=== PATIENT | male | born 1945 | race Caucasian/White ===

== ENCOUNTER 2019-08-06 10:28 | Outpatient (CLI) | payer MEDICARE, SELFPAY ==
--- NOTE | 2019-08-06 11:08 | US_ITS ---
WS: [id number] Complete ABDOMINAL ULTRASOUND HISTORY: ABDOMINAL PAIN COMPARISON: None available. Liver: 19.2 cm in length. Enlarged heterogeneous liver. The entire liver is poorly visualized. No mas s or bile duct dilatation. Gallbladder: Normally distended with no gallstones, wall thickening or pericholecystic fluid. Gallbladder wall thickness: 0.2 cm. Pancreas: Normal size and echogenicity. CBD: 0.7 cm. Right kidney: 10.9 cm x 4.8 cm x 6.0 cm. No mass, cortical thickening or hydronephrosis. Left kidney: 12.2 cm x 6.3 cm x 6.9 cm. No mass, cortical thickening or hydronephrosis. Spleen: Normal size and echogenicity. Abdominal aorta and IVC are within normal limits. No ascites. US/US abdomen complete* [id number] IMPRESSION: 1. Normal gallbladder. 2. Moderate hepatomegaly and hepatic steatosis.
== END 2019-08-06 10:29 | disposition home or self-care (01) ==
LOC: RAD 10:32
PROVIDERS: Family Provider Family Medicine; PCP Nurse Practitioner Family; Visit Provider Nurse Practitioner Family
DX: R10.9 Unspecified abdominal pain (principal); R16.0 Hepatomegaly, not elsewhere classified; K76.0 Fatty (change of) liver, not elsewhere classified
CPT/HCPCS: 76700

== ENCOUNTER → 2019-11-07 09:03 | Outpatient (BNVA) | payer MEDICARE, SELFPAY | PROVIDERS: Family Provider Family Medicine; PCP Nurse Practitioner Family; Visit Provider Internal Medicine | DX: Z11.59 Encounter for screening for other viral diseases (principal) | CPT/HCPCS: 87635 ==

== ENCOUNTER 2019-11-11 08:59 | Day surgery (SDC) | payer MEDICARE, SELFPAY ==
[2019-11-11 09:53] VITALS: BMI 28.8
--- NOTE | 2019-11-11 09:56 | W.PM.OPSUD ---
Surgery/Procedure H&P Update DATE OF PROCEDURE: November 11, 2019 DATE H&P PERFORMED: 10/31/19 H&P UPDATE INFORMATION: I have reviewed H&P completed within last 30 days, I have examined patient prior to procedure and No changes to prior documentation PLANNED PROCEDURE: Operation Date: 11/11/19 10:35 Proposed Procedures p Colonoscopy 15687 R15.2(Not Applicable) - Mckay Simmons MD
[2019-11-11] MEDS: sodium chloride 0.9% 1,000 ML 30 ML IV (10:20)
--- NOTE | 2019-11-11 10:56 | ANES.PREANE2 ---
Pre-Anesthetic Assessment Pre-Anesthetic Assessment: Height/Weight: Height 1.83 m Weight 96.615 kg Preop Diagnosis: urgency Proposed Procedure: Operation Date: 11/11/19 10:35 Proposed Procedures p Colonoscopy 43808 R15.2(Not Applicable) - Mckay Simmons MD Familial anesthetic complications: none Was Beta Apolinar taken within 24 hours: Yes Last intake: Intake Last Liquid Date 11/10/19 Last Liquid Time 21:00 Last Solid Date 11/09/19 Social: Social History: No alcohol and No tobacco Comment: former smoker Exam: Pre-Anes Outpt Exam: alert, oriented x 3, clear to auscultation bilaterally and regular rate & rhythm Airway: Cervical ROM: WNL MP: 4 Dentition: Other (misisng) Pulmonary: Pulmonary: COPD CV/HEM: CV/HEM: CAD (stents 2010) and HTN Comments: hx cabg GI: GI: GERD Metabolic: Metabolic: DM Neuropsych: Comments: hx yung fever Anesthetic Plan: ASA status: 3 Anesthesia: MAC Meds/Allergies Current Medications: Current Medications Generic Name Dose Route Start Last Admin Trade Name Freq PRN Reason Stop Dose Admin Sodium Chloride 1,000 mls @ 30 ml s/hr 11/11/19 10:00 11/11/19 10:20 Sodium Chloride 0.9% IV 30 mls/hr .Q24H ASHANTI Administration PFSH Anesthesia PFSH: Medical History COPD (chronic obstructive pulmonary disease) Coronary artery disease GERD (gastroesophageal reflux disease) History of scarlet fever Hyperlipidemia associated with type 2 diabetes mellitus Surgical History S/P CABG (coronary artery bypass graft) S/P CABG x 3 S/P knee replacement Left S/P PTCA (percutaneous transluminal coronary angioplasty) 2010 X2 S/P wrist surgery Left Status post right inguinal hernia repair Family History Sister Cancer breast Mother Hypercholesterolemia Myocardial infarction Father Myocardial infarction Diabetes Denies family history of Anesthesia complication Bleeding disorder Social History Smoking and tobacco status: former smoker Alcohol intake: never Household members: spouse Marital status: Current occupational status: retired History of recent travel: No Data Anesthesia Cardiac Studies: No Data to Display
--- NOTE | 2019-11-11 11:57 | SUR.OPER ---
4mL ink placed at transverse colon mass site
--- NOTE | 2019-11-11 12:13 | ANE.PACU2 ---
Inpatient post-anesthesia follow up: Airway intact: Yes Vital signs: Temperature Pulse Rate Respiratory Rate Blood Pressure Pulse Oximetry Oxygen Delivery Me thod Room Air Oxygen Flow Rate Fraction of Inspir ed Oxygen Hydration adequate: Yes Nausea and vomiting: No Pain level: 1 Mental status: Baseline
== END 2019-11-11 12:36 | disposition home or self-care (01) ==
PROVIDERS: Family Provider Family Medicine; PCP Nurse Practitioner Family; Visit Provider Surgery
PROC: 0DJD8ZZ Inspection of Lower Intestinal Tract, Via Natural or Artificial Opening Endoscopic (ICD-10-PCS; CPT 45378; principal; 2019-11-11 10:30)
DX: R15.2 Fecal urgency (principal); D12.2 Benign neoplasm of ascending colon; D12.4 Benign neoplasm of descending colon; K63.5 Polyp of colon; K57.30 Diverticulosis of large intestine without perforation or abscess without bleeding; J44.9 Chronic obstructive pulmonary disease, unspecified; I25.10 Atherosclerotic heart disease of native coronary artery without angina pectoris; I10 Essential (primary) hypertension; E11.9 Type 2 diabetes mellitus without complications; E78.5 Hyperlipidemia, unspecified; K21.9 Gastro-esophageal reflux disease without esophagitis; Z79.82 Long term (current) use of aspirin; Z88.2 Allergy status to sulfonamides; Z87.891 Personal history of nicotine dependence; Z95.1 Presence of aortocoronary bypass graft; Z95.5 Presence of coronary angioplasty implant and graft; Z80.0 Family history of malignant neoplasm of digestive organs
CPT/HCPCS: 12345; 45380; 45381; 45385; 88305; J2704; J7030

== ENCOUNTER 2019-11-19 11:55 | Outpatient (CLI) | payer MEDICARE, SELFPAY ==
[2019-11-19] MEDS: iohexol 300 mg/mL 50 mL Btl PO (12:37)
--- NOTE | 2019-11-19 13:30 | CT_ITS ---
WS: [id number] CT ABDOMEN AND PELVIS WITH CONTRAST HISTORY: transverse colon mass TECHNIQUE: Imaging performed of the abdomen and pelvis with IV contrast. Single phase imaging of the abdomen. Coronal and sagittal reformats are submitted. All CT scans at [facility] use at least one of these dose optimization techniques: automated exposure control; mA and/or kV adjustment per patient size (includes targeted exams where dose is matched to clinical indication); or iterativ e reconstruction. IV CONTRAST: Omnipaque 300; 95 mL IV. Oral contrast: Yes. DLP: 1146.42 mGycm COMPARISON: None available. Lower thorax: Emphysematous changes at the lung bases. Heart is normal size. Small hiatal hernia. 7.7 mm distal paraesophageal lymph node. Liver/biliary system: Mildly enlarged liver with hepatic steatosis. No bile duct dilatation. Gallbladder: Normal. No gallstones or wall thickening. No pericholecystic fluid. Pancreas: Normal. Spleen: Normal. Adrenal glands: Normal. Right kidney: Normal. Left kidney: 7 mm cortical cyst in the mid kidney. No obstruction. No solid mass. Aorta: Mild atherosclerosis of aorta. Mild ectasia with mild dilatation of the infrarenal aorta to 2. 8 cm. Lymphadenopathy: There are small lymph nodes in the upper abdomen and around the distal esophagus. Th elisa lymph nodes were also present on a prior chest CT from 01/08/2018 without increase in size. Addit ional 10 mm lymph node anterior to the IVC is also stable. Free fluid: None. GI tract: There is extensive diverticulosis throughout the colon. No acute area of inflammation from diverticulitis. Circumferential wall thickening with pericolonic inflammation involving the proximal transverse colon extending over length of 4.7 cm. Consistent with a neoplasm until otherwise proven. There are a few very small adjacent lymph nodes. No colon mass identified. Normal appendix. Abdominal wall: Marked atrophy of the muscles of the intra-abdominal wall. The RIGHT rectus muscle is absent. Pelvis: Bilateral inguinal canals containing fat only. Prostate gland calcifications. Bones: 5 mm retrolisthesis of L3. Multilevel mild facet joint arthritis. No osteoblastic or osteolyti c bone disease. CT/CT abdomen pelvis w con* [id number] IMPRESSION: 1. Transverse colon mass with mild luminal narrowing. Mass extends over length of 4.7 cm. Suspicious for adenocarcinoma of the colon. 2. No metastatic disease to the liver or adrenal glands. 3. Very small lymph nodes adjacent to the transverse colon lesion. Additional lymph nodes near the jaclyn hepatis and distal esophagus are stable since 2018. 4. Hepatic steatosis and hepatomegaly. 5. Mild ectasia and dilatation of the abdominal aorta. 6. Extensive diverticulosis without diverticulitis.
[2019-11-19 14:01] LABS: Blood Urea Nitrogen 12 mg/dL (8-23)
[2019-11-19] MEDS: iohexol 300 mg/mL 100 mL Btl IV (14:01)
== END 2019-11-19 11:56 | disposition home or self-care (01) ==
LOC: RADWPI 11:58
PROVIDERS: PCP Family Medicine; Visit Provider Surgery
DX: K63.89 Other specified diseases of intestine (principal); K76.0 Fatty (change of) liver, not elsewhere classified; R16.0 Hepatomegaly, not elsewhere classified; I77.811 Abdominal aortic ectasia; K57.90 Diverticulosis of intestine, part unspecified, without perforation or abscess without bleeding
CPT/HCPCS: 74177; 82565; 84520; Q9967

== ENCOUNTER → 2019-11-20 12:31 | Outpatient (BNVA) | payer MEDICARE, SELFPAY | PROVIDERS: PCP Family Medicine; Visit Provider Surgery | DX: C18.9 Malignant neoplasm of colon, unspecified (principal); Z20.828 Contact with and (suspected) exposure to other viral communicable diseases | CPT/HCPCS: 87635 ==

== ENCOUNTER 2019-11-24 09:36 | Inpatient (IN) | payer MEDICARE, SELFPAY ==
[2019-11-21 12:53] VITALS: BMI 29.2
[2019-11-24] VITALS (13 sets, daily range): BP systolic 103–160; BP diastolic 51–86; PULSE 62–76; RESP 16–21; TEMP 36.4–37.2; O2SAT 91–98
--- NOTE | 2019-11-24 09:59 | ECG_ITS ---
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 Measurements Intervals [place] Rate: 58 P: 33 [place]: 171 QRS: -26 QRSD: 112 T: 72 QT: 411 QTc: 407 Interpretive Statements SINUS BRADYCARDIA LOW QRS VOLTAGE IN PRECORDIAL LEADS [QRS DEFLECTION < 1.0 mV IN CHEST LEADS] POSSIBLE RIGHT VENTRICULAR CONDUCTION DELAY [RSR (QR) IN V1/V2] INFERIOR MYOCARDIAL INFARCTION [40+ ms Q WAVE AND/OR ST/T ABNORMALITY IN II/aVF], OF INDETERMINATE AGE Compared to ECG 10/24/2015 06:08:06 Sinus rhythm no longer present Incomplete right bundle-branch block no longer present Myocardial infarct finding still present Electronically Signed On 11-24-2019 18:02:15 CDT by aHley Sanchez M.D. [id number]
--- NOTE | 2019-11-24 10:07 | W.PM.OPSUD ---
Surgery/Procedure H&P Update DATE OF PROCEDURE: November 24, 2019 DATE H&P PERFORMED: 11/20/19 H&P UPDATE INFORMATION: I have reviewed H&P completed within last 30 days, I have examined patient prior to procedure and No changes to prior documentation PREOP DIAGNOSIS: colon ca PLANNED PROCEDURE: Operation Date: 11/24/19 11:25 Proposed Procedures p Laparoscopic possible open extended Right Hemicolectomy 32918 C18.9(Right) - Mckay Simmons MD
--- NOTE | 2019-11-24 10:07 | ANES.PREANE2 ---
Pre-Anesthetic Assessment Pre-Anesthetic Assessment: Height/Weight: Height 1.83 m Weight 97.976 kg Temp Pulse Resp BP Pulse Ox 97.8 F 62 18 129/85 95 11/24/19 09:55 11/24/19 09:55 11/24/19 09:55 11/24/19 09:55 11/24/19 09:55 Preop Diagnosis: colon ca Proposed Procedure: Operation Date: 11/24/19 11:25 Proposed Procedures p Laparoscopic possible open extended Right Hemicolectomy 88326 C18.9(Right) - Mckay Simmons MD Familial anesthetic complications: none Was Beta Apolinar taken within 24 hours: Yes Last intake: Intake Last Liquid Date 11/23/19 Last Liquid Time 23:00 Last Solid Date 11/22/19 Last Solid Time 20:00 Social: Comment: former smoker Exam: Pre-Anes Outpt Exam: alert, oriented x 3, clear to auscultation bilaterally and regular rate & rhythm Airway: Cervical ROM: WNL MP: 4 Dentition: Other (missing teeth) Pulmonary: Pulmonary: COPD CV/HEM: CV/HEM: CAD (stents 2010) and [place] Comments: CABG in 2016 GI: GI: GERD Comments: colon cancer Metabolic: Metabolic: DM Comments: hx yung fever Anesthetic Plan: ASA status: 3 Anesthesia: General Risk of > 500 ml blood loss (7ml/kg in children): No PFSH Anesthesia PFSH: Medical History (Updated 11/20/19 @ 10:58 by Mckay Simmons MD) Cancer of transverse colon COPD (chronic obstructive pulmonary disease) Coronary artery disease GERD (gastroesophageal reflux disease) History of scarlet fever Hyperlipidemia associated with type 2 diabetes mellitus Surgical History S/P CABG (coronary artery bypass graft) S/P CABG x 3 S/P knee replacement Left S/P PTCA (percutaneous transluminal coronary angioplasty) 2010 X2 S/P wrist surgery Left Status post colonoscopy with polypectomy (11/11/19) Status post right inguinal hernia repair Family History Sister Cancer breast Mother Hypercholesterolemia Myocardial infarction Father Myocardial infarction Diabetes Denies family history of Anesthesia complication Bleeding disorder Social History Smoking and tobacco status: former smoker Alcohol intake: never Household members: spouse Marital status: Current occupational status: retired History of recent travel: No Data Anesthesia Cardiac Studies: No Data to Display
[2019-11-24] MEDS: sodium chloride 0.9% 1,000 ML 30 ML IV (10:10)
[2019-11-24 10:29] LABS: Basophils # 0.1 10^3/uL (0.0-0.1); Basophils % 0.6 %; Eosinophils # 0.5 10^3/uL (0.0-0.8); Eosinophils % 6.2 %; Hematocrit 47.6 % (42.0-52.0); Hemoglobin 14.9 g/dL (11.7-16.6); Lymphocytes # 2.3 10^3/uL (0.8-4.8); Lymphocytes % 26.4 %; Mean Corpuscular HGB Conc 31.3 g/dL (30.0-36.0); Mean Corpuscular Hemoglobin 28.9 pg (28.0-34.0); Mean Corpuscular Volume 92.4 fL (80-94); Mean Platelet Volume 10.3 fL (7.4-10.4); Monocytes # 0.6 10^3/uL (0.2-0.9); Monocytes % 6.6 %; Neutrophils # 5.22 10^3/uL (1.8-7.7); Nucleated Red Blood Cells % 0 %; Platelet Count 294 10^3/cmm (130-400); Red Blood Count 5.15 10^6/uL (4.1-5.3); Red Cell Distribution Width 13.1 % (12.1-15.1); White Blood Count 8.7 10^3/uL (4.0-10.0)
[2019-11-24] MEDS: metroNIDAZOLE IV 500 MG/100 ML PREMIX 100 MG IV ×2 (10:50→19:56)
--- NOTE | 2019-11-24 13:24 | P.OP_ITS ---
Operative Report Date of procedure: November 24, 2019 Pre-op Diagnosis: Transverse colon cancer Post-op Findings: Inked mass identified in the proximal transverse colon No evidence of liver metastasis No evidence of peritoneal carcinomatosis Procedure Done: Laparoscopic extended right hemicolectomy with a extracorporeal ileocolic stapled [id number] anastomosis Specimens removed/disposition: Extended right hemicolectomy specimen including ileum, cecum, ascending colon and proximal two thirds of the transverse colon Surgeon: Mckay Simmons Anesthesia: General Estimated blood loss (mL): 75 IV fluids (mL): 1,000 Urine output (mL): 400 Condition: stable Disposition: PACU Procedure: The patient was taken to the operating room and placed in supine position with left arm tucked under general anesthesia after IV antibiotic had been administered. A Lozano catheter was placed and the abdomen was prepped and draped in a sterile manner. A 2 cm midline supraumbilical incision was made and using open Law technique the peritoneal cavity was entered and an 11 mm port was placed and 15 mm of pneumoperitoneum was created. 10 mm 30? scope was intr oduced. 5 mm port was placed in the right upper quadrant, left upper quadrant and in the suprapubic area under direct visualization. The patient was placed in Trendelenburg position and steep tilt to the left placing the small bowel in the left side within the peritoneal cavity and the transverse colon was retracted superiorly. The cecum was retracted laterally and the tenting of the ileocolic pedicle was noted. The peritoneum overlying the pedicle was opened and a window created posterior to the pedicle just lateral to the third portion of the duodenum. Dissection was carried superiorly lateral to the duodenum along the avascular plane. Using LigaSure the ileocolic pedicle was divided. The avascular plane was dissected laterally towards the right paracolic gutter and superiorly towards the hepatic flexure.The transverse mesocolon was divided using LigaSure and this was continued medially. The mid colic vessels were skeletonized and divided with LigaSure and the transverse mesocolon was divided until about 10 cm distal to the previously inked side on the transverse colon. The anterior leaflet of the greater omentum was divided and the distal portion of the transverse colon to enter the lesser sac. The greater omentum was divided using LigaSure and the hepatic flexure was taken down. The dissection was carried along the line of Toldt until the ascending colon and down to ileum to completely free it up. The mesentery of the terminal ileum was divided about 10 cm from the cecum. 20 cc of saline mixed with 20 cc of 0.5% Marcaine mixed with 20 cc of Exparel was injected in the midclavicular line under laparoscopic visualization for a TAP block. At this point the pneumoperitoneum was released and the mobilized colon and small bowel was exteriorized through the sup raumbilical incision which had been extended and a wound protector had been placed. Interrupted 4-0 Vicryl suture was placed to approximate the ileum to the distal transverse colon and enterotomies were created on the transverse colon and small bowel and and 75 mm blue load JORGE stapler was introduced and fired creating a [id number] stapled anastomosis. There was no bleeding noted from the staple line and enterotomies were grasped with Allis clamps and another load of 75 mm blue load JORGE stapler x 2 was fired to resect the specimen distal to the enterotomies. 4-0 Vicryl sutures were placed on the edges and the intersection of the staple line. The bowel was reintroduced into the peritoneal cavity and the staple line was covered with omentum. The peritoneal cavity was irrigated with saline. All ports were removed under direct visualization and there was no bleeding noted from the port sites. The fascia at the midline incision was closed using running #1 loop PDS. The wound was irrigated with saline, and subcutaneous tissue approximated using 3-0 Vicryl suture and skin at all 4 port sites were closed with 4-0 Monocryl and surgical glue. The patient is transferred to the recovery room in stable condition with a Lozano catheter
--- NOTE | 2019-11-24 13:51 | SUR.PHASEI ---
4151 PATIENT TO PACU FROM OR. RR EVEN AND UNLABORED. SPO2 98% ON SIMPLE MASK AT 8L. INCISIONS TO ABDOMEN, CDI, ABDOMINAL BINDER IN PLACE. ALMEIDA CATH IN PLACE, SECURED TO RIGHT LEG.
--- NOTE | 2019-11-24 14:10 | PM.PACU ---
PACU note Post-Anesthesia Exam: awake and vital signs stable Disposition: admitted
--- NOTE | 2019-11-24 14:23 | SUR.PHASEI ---
1411 PATIENT TO MED SURG. NO DISTRESS. DRESSING TO ABDOMEN, CDI WITH ABDOMINAL BINDER. ALMEIDA CATH IN PLACE.
[2019-11-24] MEDS: sodium chlor 0.9% + KCl 20 mEq 20 MEQ/1,000 ML BAG 100 MEQ IV (14:37)
[2019-11-24] MEDS: HYDROcodone-acetaminophen 5-325 mg Tablet 1 TAB PO (16:35)
[2019-11-24] MEDS: metoprolol tartrate 25 mg Tablet PO (17:54)
[2019-11-24] MEDS: sennosides-docusate Tablet 1 TAB PO (17:54)
[2019-11-24] MEDS: gabapentin 300 mg Capsule PO (19:56)
[2019-11-24] MEDS: morphine 4 mg/mL SDV 1 mL 3 MG IVP (23:29)
[2019-11-25] VITALS (9 sets, daily range): BP systolic 99–139; BP diastolic 53–76; PULSE 53–78; RESP 16–20; TEMP 36.8–37; O2SAT 90–95
[2019-11-25] MEDS: sodium chlor 0.9% + KCl 20 mEq 20 MEQ/1,000 ML BAG 100 MEQ IV (01:57)
[2019-11-25 02:38] LABS: Basophils % 0.1 %; Hematocrit 38.2 % (42.0-52.0); Hemoglobin 11.7 g/dL (11.7-16.6); Lymphocytes # 1.2 10^3/uL (0.8-4.8); Lymphocytes % 9.5 %; Mean Corpuscular HGB Conc 30.6 g/dL (30.0-36.0); Mean Corpuscular Hemoglobin 28.4 pg (28.0-34.0); Mean Corpuscular Volume 92.7 fL (80-94); Mean Platelet Volume 10.5 fL (7.4-10.4); Monocytes # 0.7 10^3/uL (0.2-0.9); Monocytes % 5.8 %; Neutrophils # 10.34 10^3/uL (1.8-7.7); Neutrophils % 84.3 %; Nucleated Red Blood Cells % 0 %; Platelet Count 240 10^3/cmm (130-400); Red Blood Count 4.12 10^6/uL (4.1-5.3); Red Cell Distribution Width 13.2 % (12.1-15.1); White Blood Count 12.3 10^3/uL (4.0-10.0)
[2019-11-25] MEDS: metroNIDAZOLE IV 500 MG/100 ML PREMIX 100 MG IV (03:10)
[2019-11-25 03:14] LABS: Anion Gap 16.9 (5-19); Blood Urea Nitrogen 14 mg/dL (8-23); Calcium 8.5 mg/dL (8.5-10.5); Carbon Dioxide 24 mmol/L (22-29); Chloride 102 mmol/L (98-107); Creatinine Clr Calc Pharmacy 73.6241; Glucose 146 mg/dL (65-115); Osmolality Calculated 289 mOsm/kg (285-295); Potassium 4.9 mmol/L (3.5-5.1); Sodium 138 mmol/L (136-145)
[2019-11-25] MEDS: HYDROcodone-acetaminophen 5-325 mg Tablet 1 TAB PO ×2 (03:20→17:01)
[2019-11-25] MEDS: enoxaparin 40 mg/0.4 mL Syringe SUBCUT (05:08)
[2019-11-25] MEDS: morphine 4 mg/mL SDV 1 mL 3 MG IVP (05:12)
--- NOTE | 2019-11-25 06:09 | PC.NURSE ---
SHIFT SUMMARY Had a good night. Incisional pain relieved well with po Hydrocodone and IV Morphine alternating. Remains NPO except ice chips. No c/o nausea. Abd binder in place. Incisions clean and dry. Good urine output per Lozano. IV fluids infusing. Received scheduled IV antibiotics. Has been coughing some this morning. No gas passed this shift. Very pleasant. Ambulated in [place] this am and now sitting in chair watching TV
[2019-11-25] MEDS: gabapentin 300 mg Capsule PO ×3 (08:21→21:06)
[2019-11-25] MEDS: metoprolol tartrate 25 mg Tablet PO ×2 (08:21→17:01)
[2019-11-25] MEDS: aspirin 81 mg EC Tablet PO (08:21)
[2019-11-25] MEDS: sennosides-docusate Tablet 1 TAB PO ×2 (08:21→17:01)
--- NOTE | 2019-11-25 09:59 | ANE.PACU2 ---
Inpatient post-anesthesia follow up: Airway intact: Yes Vital signs: Temperature 98.6 F Pulse Rate 78 Respiratory Rate 16 Blood Pressure 122/76 Pulse Oximetry 90 Oxygen Delivery Me thod Nasal Cannula Oxygen Flow Rate 8 Fraction of Inspir ed Oxygen Hydration adequate: Yes Nausea and vomiting: No Pain level: 1 Mental status: Baseline
--- NOTE | 2019-11-25 10:24 | P.PN_ITS ---
Subjective Subjective: Interval history: No issues overnight, had an episode of emesis in PACU yesterday. Patient denies any nausea, vomiting, no flatus, no BM Medications: Reviewed: Yes Vitals/I&O/Wt Last Vital Signs Temp 98.6 F 11/25/19 07:54 Pulse 78 11/25/19 07:54 Resp 16 11/25/19 07:54 BP 122/76 11/25/19 07:54 Pulse Ox 90 11/25/19 03:56 11/24/19 11/25/19 11/25/19 22:59 06:59 14:59 Intake Total 150 / 1450 1150 / 1450 Output Total 400 / 2525 1250 / 2525 Balance -250 / -1075 -100 / -1075 Physical Exam Narrative: EXAM NARRATIVE: Abdomen: Soft, tender, nondistended, incision clean dry and intact Urinary Catheter Management^: F: Cath Placed During This Visit: yes Urinary Catheter Date of Insertion: 11/24/19 Urinary Catheter Time of Insertion: 10:45 Data : 11/25/19 02:00 11/25/19 02:00 A&P Assessment and plan (1) S/P right hemicolectomy: Status post extended right hemicolectomy for transverse colon cancer with postop ileus Decrease IV fluids to 50 cc/h Pepcid for GI prophylaxis Lovenox SCD for DVT prophylaxis Ambulate with physical therapy Daily labs DC Lozano Start clear liquid diet Senna docusate for bowel regimen Status: Acute Attestations Medical Necessity Statement*: Status post extended right hemicolectomy with postop ileus requiring continued inpatient stay Coding Level of Care Code 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
[2019-11-25] MEDS: sodium chlor 0.9% + KCl 20 mEq 20 MEQ/1,000 ML BAG 50 MEQ IV (15:19)
[2019-11-25] MEDS: trazodone 50 mg Tablet PO (21:06)
[2019-11-26 03:11] LABS: Basophils % 0.3 %; Eosinophils # 0.1 10^3/uL (0.0-0.8); Hematocrit 33.6 % (42.0-52.0); Hemoglobin 10.2 g/dL (11.7-16.6); Lymphocytes # 1.8 10^3/uL (0.8-4.8); Lymphocytes % 18.7 %; Mean Corpuscular HGB Conc 30.4 g/dL (30.0-36.0); Mean Corpuscular Hemoglobin 28.6 pg (28.0-34.0); Mean Corpuscular Volume 94.1 fL (80-94); Mean Platelet Volume 10.6 fL (7.4-10.4); Monocytes # 0.9 10^3/uL (0.2-0.9); Monocytes % 8.8 %; Neutrophils # 6.89 10^3/uL (1.8-7.7); Nucleated Red Blood Cells % 0 %; Platelet Count 194 10^3/cmm (130-400); Red Blood Count 3.57 10^6/uL (4.1-5.3); Red Cell Distribution Width 13.2 % (12.1-15.1); White Blood Count 9.7 10^3/uL (4.0-10.0)
[2019-11-26 03:29] VITALS: BP 136/73; PULSE 61; RESP 20; TEMP 37.2; O2SAT 92
[2019-11-26 03:40] LABS: Anion Gap 12.2 (5-19); Blood Urea Nitrogen 14 mg/dL (8-23); Calcium 8.5 mg/dL (8.5-10.5); Carbon Dioxide 24 mmol/L (22-29); Chloride 105 mmol/L (98-107); Glucose 103 mg/dL (65-115); Osmolality Calculated 285 mOsm/kg (285-295); Potassium 4.2 mmol/L (3.5-5.1); Sodium 137 mmol/L (136-145)
[2019-11-26] MEDS: enoxaparin 40 mg/0.4 mL Syringe SUBCUT (05:35)
[2019-11-26] MEDS: sodium chlor 0.9% + KCl 20 mEq 20 MEQ/1,000 ML BAG 50 MEQ IV (05:35)
[2019-11-26] MEDS: HYDROcodone-acetaminophen 5-325 mg Tablet 1 TAB PO (05:39)
[2019-11-26 07:57] VITALS: BP 118/56; PULSE 70; RESP 16; TEMP 36.9; O2SAT 93
[2019-11-26] MEDS: gabapentin 300 mg Capsule PO ×3 (08:08→21:10)
[2019-11-26] MEDS: aspirin 81 mg EC Tablet PO (08:08)
[2019-11-26] MEDS: metoprolol tartrate 25 mg Tablet PO ×2 (08:08→18:21)
[2019-11-26] MEDS: sennosides-docusate Tablet 1 TAB PO ×2 (08:08→18:21)
[2019-11-26 11:13] VITALS: BP 115/70; PULSE 52; RESP 18; TEMP 37.7; O2SAT 93
--- NOTE | 2019-11-26 11:50 | PM.PN ---
Subjective Subjective: Interval history: Patient doing well, passing flatus, no BM tolerating clear liquid diet Vitals/I&O/Wt Last Vital Signs Temp 99.9 F H 11/26/19 11:13 Pulse 52 L 11/26/19 11:13 Resp 18 11/26/19 11:13 BP 115/70 11/26/19 11:13 Pulse Ox 93 11/26/19 11:13 11/25/19 11/26/19 11/26/19 22:59 06:59 14:59 Intake Total 300 / 2595.000 950 / 2595.000 420 / 420 Output Total 700 / 0 1350 / 2049 Balance -400 / 545.000 -400 / 545.000 420 / 420 Physical Exam Narrative: EXAM NARRATIVE: Abdomen: Soft, nontender, nondistended, incisions healing well Urinary Catheter Management^: F: Cath Placed During This Visit: yes Urinary Catheter Date of Insertion: 11/24/19 Urinary Catheter Time of Insertion: 10:45 Data : 11/26/19 02:35 11/26/19 02:35 A&P Assessment and plan (1) S/P right hemicolectomy: Status post extended right hemicolectomy for transverse colon cancer with postop ileus, passing flatus DC IV fluids Pepcid for GI prophylaxis Lovenox SCD for DVT prophylaxis Ambulate with physical therapy Daily labs Advance to full liquid diet Senna docusate for bowel regimen Status: Acute Attestations Medical Necessity Statement*: post right hemicolectomy Coding Level of Care Code Acute Marble Polisher for Miog Fwanupam Diagnoses S/P right hemicolectomy Z90.49
[2019-11-26 14:49] VITALS: BP 132/72; PULSE 61; RESP 20; TEMP 36.9; O2SAT 94
[2019-11-26 18:19] VITALS: BP 135/87; PULSE 59; RESP 20; TEMP 36.9; O2SAT 99
[2019-11-26 19:09] VITALS: BP 120/70; PULSE 66; RESP 16; TEMP 37.3; O2SAT 92
[2019-11-26] MEDS: acetaminophen 325 mg Tablet 650 MG PO (21:09)
[2019-11-26] MEDS: trazodone 50 mg Tablet PO (21:10)
[2019-11-27] VITALS (7 sets, daily range): BP systolic 103–130; BP diastolic 63–74; PULSE 53–69; RESP 16–24; TEMP 36.7–37.2; O2SAT 92–95
[2019-11-27 04:14] LABS: Basophils % 0.4 %; Eosinophils # 0.4 10^3/uL (0.0-0.8); Eosinophils % 4.6 %; Hematocrit 39.1 % (42.0-52.0); Hemoglobin 12.2 g/dL (11.7-16.6); Lymphocytes % 23.3 %; Mean Corpuscular HGB Conc 31.2 g/dL (30.0-36.0); Mean Corpuscular Hemoglobin 29.3 pg (28.0-34.0); Mean Corpuscular Volume 93.8 fL (80-94); Mean Platelet Volume 10.6 fL (7.4-10.4); Monocytes # 0.8 10^3/uL (0.2-0.9); Monocytes % 9.5 %; Neutrophils # 5.25 10^3/uL (1.8-7.7); Neutrophils % 61.8 %; Nucleated Red Blood Cells % 0 %; Platelet Count 246 10^3/cmm (130-400); Red Blood Count 4.17 10^6/uL (4.1-5.3); Red Cell Distribution Width 13.2 % (12.1-15.1); White Blood Count 8.5 10^3/uL (4.0-10.0)
[2019-11-27 04:49] LABS: Anion Gap 14.8 (5-19); Blood Urea Nitrogen 11 mg/dL (8-23); Calcium 9.6 mg/dL (8.5-10.5); Carbon Dioxide 24 mmol/L (22-29); Chloride 101 mmol/L (98-107); Glucose 118 mg/dL (65-115); Osmolality Calculated 282 mOsm/kg (285-295); Potassium 3.8 mmol/L (3.5-5.1); Sodium 136 mmol/L (136-145)
[2019-11-27] MEDS: enoxaparin 40 mg/0.4 mL Syringe SUBCUT (05:45)
--- NOTE | 2019-11-27 08:00 | PC.NURSE ---
pt resting in bed this am. able to take morning PO meds well. pt repositioned and is watching TV
[2019-11-27] MEDS: aspirin 81 mg EC Tablet PO (08:22)
[2019-11-27] MEDS: gabapentin 300 mg Capsule PO ×2 (08:22→14:42)
[2019-11-27] MEDS: sennosides-docusate Tablet 1 TAB PO (08:22)
[2019-11-27] MEDS: metoprolol tartrate 25 mg Tablet PO (08:22)
--- NOTE | 2019-11-27 09:08 | DCPLANNER ---
Pg 2 of IM explained to and signed by pt. No questions, copy provided. He tells chief underwriter that when discharges him; he's ready!
--- NOTE | 2019-11-27 09:17 | DCPLANNER ---
Pg 2 of IM updated and reviewed with pt. No questions, copy provided.
--- NOTE | 2019-11-27 11:43 | P.PN_ITS ---
Subjective Subjective: Interval history: Patient had a large bowel movement yesterday, no nausea or vomiting, tolerating GI soft diet Vitals/I&O/Wt Last Vital Signs Temp 98.1 F 11/27/19 07:23 Pulse 69 11/27/19 07:23 Resp 18 11/27/19 07:23 BP 117/74 11/27/19 07:23 Pulse Ox 93 11/27/19 07:23 11/26/19 11/27/19 11/27/19 22:59 06:59 14:59 Intake Total 240 / 910 250 / 910 240 / 240 Output Total 740 / 740 Balance -500 / 170 250 / 170 240 / 240 Physical Exam Narrative: EXAM NARRATIVE: Abdomen: soft, tender, non distended, incision c/d/i Urinary Catheter Management^: F: Cath Placed During This Visit: yes Urinary Catheter Date of Insertion: 11/24/19 Urinary Catheter Time of Insertion: 10:45 Data : 11/27/19 03:05 11/27/19 03:05 A&P Assessment and plan (1) S/P right hemicolectomy: Status post extended right hemicolectomy for transverse colon cancer with postop ileus, passing flatus DC home Status: Acute Attestations Medical Necessity Statement*: d/c home Coding Level of Care Code Acute 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
--- NOTE | 2019-11-27 11:45 | P.DS_ITS ---
Discharge Providers Date of Admission: 11/24/19 09:36 Date of Discharge: November 27, 2019 Attending Provider at Admission: Mckay Simmons MD Attending Provider at Discharge: Mckay Simmons MD Primary Care Provider: Emma Bingham MD Diagnoses at Discharge Discharge Diagnosis (1) S/P right hemicolectomy: Status: Acute Reason for Visit Reason for Visit: lap poss open hemicolectomy Hospital Course Discharge Summary: This is a 74-year-old gentleman noted on colonoscopy to have a mass in the proximal transverse colon with biopsies confirming adenocarcinoma. Patient subsequently underwent extended right hemicolectomy. By postop day 2 patient had return of bowel function and at time of discharge patient was tolerating a GI soft diet, ambulating and pain well controlled with pain medications. His vital signs are stable Physical Exam Narrative: EXAM NARRATIVE: Abdomen: Soft, nondistended, minimally tender, incision clean dry and intact Urinary Catheter Management^: F: Cath Placed During This Visit: yes Urinary Catheter Date of Insertion: 11/24/19 Urinary Catheter Time of Insertion: 10:45 Discharge Data Data Completed and Pending: Pending at discharge Category Date Time Status Pathology: Surgic al [PTH] Routine Pth 11/24/19 13:47 Received Labs from last 24 hours 11/27/19 11/27/19 03:05 03:05 WBC 8.5 RBC 4.17 Hgb 12.2 Hct 39.1 L MCV 93.8 MCH 29.3 MCHC 31.2 RDW 13.2 Plt Count 246 MPV 10.6 H Neut % (Auto) 61.8 Lymph % (Auto) 23.3 [place] % (Auto) 9.5 Eos % (Auto) 4.6 Baso % (Auto) 0.4 Neut # (Auto) 5.25 Lymph # (Auto) 2.0 [place] # (Auto) 0.8 Eos # (Auto) 0.4 Baso # (Auto) 0.0 Nucleated RBC % (a uto) 0 Nucleated RBCs # 0.0 Sodium 136 Potassium 3.8 Chloride 101 Carbon Dioxide 24 Anion Gap 14.8 BUN 11 Creatinine 0.9 GFR Calculation Not Reportable Glucose 118 H Calculated Osmolal ity 282 L Calcium 9.6 Vitals: Last Vital Signs Temp 98.1 F 11/27/19 07:23 Pulse 69 11/27/19 07:23 Resp 18 11/27/19 07:23 BP 117/74 10/01/20 07:23 Pulse Ox 93 11/27/19 07:23 Discharge Plan Discharge Patient Disposition: Home Condition: Stable Prescriptions: [place] 5-325 mg tablet 1 tab PO Q6H 7 Days Qty: 20 RF: 0 Colace 100 mg capsule 100 mg PO BID Qty: 30 RF: 0 Continued gabapentin 300 mg capsule 300 mg PO TID RF: 0 acetaminophen [Tylenol] 325 mg tablet 325 mg PO QID PRN (Reason: Pain) RF: 0 aspirin [Adult Low Dose Aspirin] 81 mg tablet,delayed release (DR/EC) 81 mg PO DAILY RF: 0 tramadol 50 mg tablet 50 mg PO TID RF: 0 metoprolol tartrate 25 mg tablet 25 mg PO BID RF: 0 nitroglycerin [Nitrostat] 0.4 mg tablet, sublingual 0.4 mg SUBLINGUAL Q5M PRN (Reason: Pain, Mild) RF: 0 trazodone 50 mg tablet 50 mg PO DAILY RF: 0 coenzyme Q10 [Co Q-10] 200 mg capsule 200 mg PO DAILY RF: 0 diclofenac sodium [Voltaren] 1 % gel 2 gm TOPICAL QID RF: 0 Discontinued erythromycin 500 mg tablet 500 mg PO DAILY Qty: 3 RF: 0 neomycin 500 mg tablet 500 mg PO DAILY Qty: 6 RF: 0 Discharge Orders: Discharge Order (Routine); Ordered 11/27/19 Ordered By: Mckay Simmons Referrals: Mckay Simmons MD [Physician] - 12/12/19 10:30 am Discharge Diet: GI Soft Activity Restrictions/Additional Instructions: 1. Up and walking as tolerated. 2. Ok to shower in 48 hours after surgery. 3. Remove Dermabond dressing in 7-10 days. 4. Do not lift more than 10 pounds. 5. Do not operate heavy machinery or drive while using pain medications. 6. Advised to return to ER or contact my office if there are any signs of infection like, increasing pain, fevers, chills, redness or drainage of pus. Discharge Date/Time: 11/27/19 16:40 Discharge Attestations Time Spent in Discharge Care*: less than 30 min Quality Metrics Clinical Quality Measures During this hospital stay, did patient experience: None Coding Level of Care Code Acute [employer] [facility] 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
== END 2019-11-27 16:40 | disposition home or self-care (01) | DRG 331 ==
PROVIDERS: Anesthesiology; Admitting Provider Surgery; PCP Family Medicine; Visit Provider Surgery
PROC: 0DTF4ZZ Resection of Right Large Intestine, Percutaneous Endoscopic Approach (ICD-10-PCS; CPT 44205; principal; 2019-11-24 11:25)
DX: C18.4 Malignant neoplasm of transverse colon (principal); J44.9 Chronic obstructive pulmonary disease, unspecified; I25.10 Atherosclerotic heart disease of native coronary artery without angina pectoris; K21.9 Gastro-esophageal reflux disease without esophagitis; E78.5 Hyperlipidemia, unspecified; E11.9 Type 2 diabetes mellitus without complications; Z95.1 Presence of aortocoronary bypass graft; Z95.5 Presence of coronary angioplasty implant and graft; Z96.652 Presence of left artificial knee joint; Z87.891 Personal history of nicotine dependence; Z79.82 Long term (current) use of aspirin
CPT/HCPCS: 12345; 36415; 51702; 80048; 85025; 88309; 93005; 96372; 96375; 97161; J0690; J1100; J1650; J2270; J2370; J2405; J2704; J3010; J3490; J7030; S0030

== ENCOUNTER 2019-12-23 09:50 | Outpatient (CLI) | payer MEDICARE, SELFPAY ==
--- NOTE | 2019-12-24 10:50 | ONC CON_ITS ---
Dr. Brumfield New Patient Note Patient: Cliff Oswald Unit #: [id number]: [id number] Dicatated By: Nilsa Brumfield M.D.Date of Visit: Dec 23, 2019 Onc MED New Patient/Consult Referring Physician: Dr. ELENA GARCIA M.D. History of Present Illness: Mr. Cliff Oswald is a 74-year-old gentleman, recently diagnosed with colon cancer, patient underwent colonoscopy on November 11, 2019 which showed in the mid to distal transverse colon there was a circumferential mass, biopsies were obtained and pathology came back adenocarcinoma subsequently patient underwent CT scan of abdomen pelvis which was done on November 19, 2019 which showed transverse colon mass with mild luminal narrowing. Mass extends over the length of 4.7 cm. No metastatic disease to the liver or adrenal glands. A very small lymph node adjacent to transverse colon mass and then additional lymph nodes near jaclyn hepatis and distal esophagus are stable since 2018. Hepatomegaly and hepatic steatosis. And extensive diverticulosis without diverticulitis. Patient underwent laparoscopic extended right hemicolectomy with extracorporeal ileocolic stapled [id number] anastomosis on November 24, 2019 final pathology report showed moderately differentiated adenocarcinoma tumor invades muscularis propria, T2 With clear surgical margins and 0 out of 29 lymph nodes showed metastatic disease, N 0, lymphovascular invasion seen in small vessels and large vessels. Pathological stage T2 ,N0, stage II Patient tolerated procedure well now healing well. Past medical history significant for COPD, coronary artery disease status post CABG x3, right knee replacement., Patient is a former smoker, no history of alcohol use. Patient denies any specific complaints today, no fever chills, no nausea or vomiting, no abdominal pain, no diarrhea or constipation, no jaundice, no melena or hematochezia. Past Medical History: Mr. Palmer medical history consists of chronic obstructive pulmonary disease, coronary artery disease, gastroesophageal reflux disease, history of scarlet fever, hyperlipidemia, and type II diabetes. Past Surgical History: Mr. Palmer surgical/procedural history consists of coronary artery bypass, hernia repair, left knee replacement, left wrist surgery, PTCA, right hemicolectomy in 2019, and colonoscopy in 2019. Medications: Aspirin Low Dose Adult 1 Tablet (of 81 mg) Tablet, chewable Oral daily, CoQ10 1 Capsule Oral daily, Metoprolol Tartrate 1 Tablet (of 25 mg) Oral b.i.d., Nitroglycerin 1 Tablet (of 0.4 mg) Tablet, sublingual Sublingual t.i.d. PRN, traMADol HCl 1 Tablet (of 50 mg) Oral t.i.d., traZODone HCl 1 Tablet (of 100 mg) Oral at bedtime, Voltaren (1 %) Gel (jelly) Transdermal t.i.d. Allergies: Sulfa Antibiotics Social History: Mr. Oswald is . Mr. Oswald no longer smokes. Family History: There is no documented family history. Review Of Symptoms: Constitutional - Appetite is good and weight is stable. No fever. Positive for night sweats. No hot flashes. Energy level is fair, ENMT - No sinus congestion/drainage. No mouth sores. No sore throat. Positive for difficulty swallowing, Hematologic/Lymphatic - Positive for easy bruising, Respiratory - Positive for shortness of breath and cough. No pleuritic pain or hemoptysis, Cardiovascular - No angina pain. No palpitations, Gastrointestinal - No nausea or vomiting. Positive for heartburn, acid reflux and diarrhea. No constipation. No blood in the stool or black stools, Genitourinary (M) - No dysuria or hematuria. Positive for urinary frequency. No urgency or incontinence, Musculoskeletal - No joint or bone pain, Neurologic - No headache or dizziness. Positive for numbness and tingling. No other focal neurologic symptoms, Psychiatric - No anxiety or depression. No insomnia. Vital Signs: Performed on Dec 23, 2019 11:10: 0, 28.21, 2.17 sq.m, 72 in, 96 %, 72 /min, 19 /min, 122/79 mm(hg), 97 F (LOW), and 208 lbs (HIGH). Performance Status: 0 - Fully active, able to carry on all predisease activities without restrictions. (ECOG) Physical Examination: Eyes - No mouth sores, no thrush, no jaundice, Respiratory - Lungs are clear to auscultation , Heart S1-S2, Abdomen - Soft, bowel sounds present, Well-healed midline surgical scar, Extremities - No visible edema. Lab/Imaging: Most recent lab results are not available for this patient. 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 Pathological stage T2, N0, stage II CT scan of abdomen pelvis done on November 19, 2019 showed no metastatic disease to the liver. CAD, status post CABG x3 COPD, Status post left knee replacement Plan: Discussed with patient regarding his pathology and disease status, patient is a 74-year-old gentleman now with stage II transverse colon cancer 0 out of 29 lymph node positive for metastatic disease but there was evidence of lymphovascular invasion seen, as per NCCN guidelines there is no role of adjuvant chemotherapy except in high risk Stage II which include near obstructive lesion or lymphovascular invasion or poorly differentiated tumor or positive surgical margins but patient has only 1 risk factor which is lymphovascular invasion, considering his age and history of coronary artery disease, risk versus benefit associated with adjuvant chemotherapy in stage II but high risk colon cancer were discussed. At this point, we will request pathology regarding MSI/MMR D status, if it shows deficient, that would be favorable sign. Patient return to clinic in 1 month with CBC CMP. Signed By: Nilsa Brumfield M.D. <<Signature on File>>
[2020-01-13 09:18] LABS: Miscellaneous Test See Scanned Lab Rpt
== END 2019-12-23 09:51 | disposition home or self-care (01) ==
LOC: ONCMED 09:55
PROVIDERS: PCP Family Medicine; Visit Provider Internal Medicine Hematology & Oncology
DX: C18.4 Malignant neoplasm of transverse colon (principal); J44.9 Chronic obstructive pulmonary disease, unspecified; I25.10 Atherosclerotic heart disease of native coronary artery without angina pectoris; Z90.49 Acquired absence of other specified parts of digestive tract; Z95.1 Presence of aortocoronary bypass graft; Z96.652 Presence of left artificial knee joint
CPT/HCPCS: 99203

== ENCOUNTER 2020-01-28 08:09 | Outpatient (CLI) | payer MEDICARE, SELFPAY ==
[2020-01-28 08:47] LABS: Basophils % 0.4 %; Eosinophils # 0.6 10^3/uL (0.0-0.8); Eosinophils % 8.3 %; Hematocrit 44.4 % (42.0-52.0); Hemoglobin 14.3 g/dL (11.7-16.6); Lymphocytes # 2.6 10^3/uL (0.8-4.8); Lymphocytes % 34.7 %; Mean Corpuscular HGB Conc 32.2 g/dL (30.0-36.0); Mean Corpuscular Hemoglobin 28.5 pg (28.0-34.0); Mean Corpuscular Volume 88.6 fL (80-94); Mean Platelet Volume 10.7 fL (7.4-10.4); Monocytes # 0.7 10^3/uL (0.2-0.9); Monocytes % 8.8 %; Neutrophils % 47.7 %; Nucleated Red Blood Cells % 0 %; Platelet Count 222 10^3/cmm (130-400); Red Blood Count 5.01 10^6/uL (4.1-5.3); Red Cell Distribution Width 13.2 % (12.1-15.1); White Blood Count 7.4 10^3/uL (4.0-10.0)
[2020-01-28 09:10] LABS: Alanine Aminotransferase 31 U/L (0-41); Alkaline Phosphatase 77 IU/L (40-130); Anion Gap 14.8 (5-19); Aspartate Amino Transferase 23 U/L (0-40); Blood Urea Nitrogen 14 mg/dL (8-23); Calcium 9.5 mg/dL (8.5-10.5); Carbon Dioxide 26 mmol/L (22-29); Chloride 103 mmol/L (98-107); Globulin 3.6 g/dL (1.3-4.6); Glucose 124 mg/dL (65-115); Osmolality Calculated 290 mOsm/kg (285-295); Potassium 4.8 mmol/L (3.5-5.1); Sodium 139 mmol/L (136-145); Total Bilirubin 0.2 mg/dL (0.15-1.2); Total Protein 7.6 g/dL (6.6-8.7)
--- NOTE | 2020-01-28 10:46 | ONC FU_ITS ---
Dr. Brumfield follow up note Patient: Cliff Oswald Unit #: [id number]: 1945 Dicatated By: Nilsa Brumfield M.D.Date of Visit:Jan 28, 2020 Onc Med Follow-up/Prog Note History of Present Illness: Mr. Cliff Oswald is a 74-year-old gentleman, recently diagnosed with colon cancer, patient underwent colonoscopy on November 11, 2019 which showed in the mid to distal transverse colon there was a circumferential mass, biopsies were obtained and pathology came back adenocarcinoma subsequently patient underwent CT scan of abdomen pelvis which was done on November 19, 2019 which showed transverse colon mass with mild luminal narrowing. Mass extends over the length of 4.7 cm. No metastatic disease to the liver or adrenal glands. A very small lymph node adjacent to transverse colon mass and then additional lymph nodes near jaclyn hepatis and distal esophagus are stable since 2018. Hepatomegaly and hepatic steatosis. And extensive diverticulosis without diverticulitis. Patient underwent laparoscopic extended right hemicolectomy with extracorporeal ileocolic stapled [id number]-[id number] anastomosis on November 24, 2019 final pathology report showed moderately differentiated adenocarcinoma tumor invades muscularis propria, T2 With clear surgical margins and 0 out of 29 lymph nodes showed metastatic disease, N 0, lymphovascular invasion seen in small vessels and large vessels. Pathological stage T2 ,N0, stage II, MSI/MMR intact Patient tolerated procedure well now healing well. Past medical history significant for COPD, coronary artery disease status post CABG x3, right knee replacement., Patient is a former smoker, no history of alcohol use. Came for follow-up, denies any specific complaints, no fever chills, no nausea or vomiting, no diarrhea constipation, no melena or hematochezia, no jaundice Medications: Aspirin Low Dose Adult 1 Tablet (of 81 mg) Tablet, chewable Oral daily, CoQ10 1 Capsule Oral daily, Metoprolol Tartrate 1 Tablet (of 25 mg) Oral b.i.d., Nitroglycerin 1 Tablet (of 0.4 mg) Tablet, sublingual Sublingual t.i.d. PRN, traZODone HCl 1 Tablet (of 100 mg) Oral at bedtime, Voltaren (1 %) Gel (jelly) Transdermal t.i.d. Allergies: Sulfa Antibiotics Review of Systems: Review of Systems is not available for this patient. Vital Signs: Performed on Jan 28, 2020 10:17 Height - 72.00 in Weight - 213.6 lbs (HIGH) BSA - 2.19 sq.m BMI - 28.97 Temperature - 97.5 F (LOW) Pulse - 87 /min Respiration - 20 /min BP - 134/82 mm(hg) O2 Sat - 95 % (LOW) Pain - 0 Performance Status: 0 - Fully active, able to carry on all predisease activities without restrictions. (ECOG) Physical Examination: ENMT - No mouth sores, no thrush, no jaundice, Respiratory - Lungs are clear to auscultation, Cardiovascular - Regular rate and rhythm of heart, Abdomen - Soft, bowel sounds present, Extremities - No visible edema or rash. Lab/Imaging: Test performed on Jan 28, 2020 08:29 Sodium 139 mmol/L Potassium 4.8 mmol/L Chloride 103 mmol/L CO2 26 mmol/L Anion Gap 14.8 BUN 14 mg/dL Creatinine 1.2 mg/dL Cr Clearance (Est) 76.2600 mL/min Glucose 124 mg/dL Osmolality - Calculated 290 mOsm/kg Calcium 9.5 mg/dL Protein, Total 7.6 g/dL Albumin 4.0 g/dL Globulin 3.6 g/dL Bilirubin, Total 0.2 mg/dL ALT (SGPT) 31 U/L AST (SGOT) 23 U/L Alkaline Phosphatase 77 IU/L WBC 7.4 10 3/uL RBC 5.01 10 6/uL HGB 14.3 g/dL HCT 44.4 % MCV 88.6 fL MCH 28.5 pg MCHC 32.2 g/dL RDW 13.2 % Platelet Count 222 10 3/cmm MPV 10.7 fL Neutrophils 3.50 10 3/uL Lymphocytes 2.6 10 3/uL Monocytes 0.7 10 3/uL Eosinophils 0.6 10 3/uL Basophils 0.0 10 3/uL Neutrophil % 47.7 % Lymphocyte % 34.7 % Monocyte % 8.8 % Eosinophil % 8.3 % Basophils % 0.4 % NRBC % 0 % Impression: Node negative, 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 Pathological stage T2, N0, stage II, MSI/MMR intact CT scan of abdomen pelvis done on November 19, 2019 showed no metastatic disease to the liver. CAD, status post CABG x3 COPD, Status post left knee replacement Plan: Discussed with patient regarding his labs white blood count 7.4 hemoglobin 14.3 hematocrit 44.4 platelets 222,000 CMP within normal limit except glucose 124 and MSI/MMR status came back intact Clinically, patient doing well with no new signs symptom suggestive of recurrence of disease, his lab work-up is within normal range Considering his age and history of coronary artery disease status post CABG x3 and pathological stage II with lymphovascular involvement is only risk factor, his MSI/MMR status came back intact, whereas tumor with MSI/MMR deficient have better prognosis, risk versus benefits associate with adjuvant chemotherapy were discussed in detail, patient opted for observation, return to clinic in 3 months with CBC CMP Signed By: Nilsa Brumfield M.D. <<Signature on File>>
== END 2020-01-28 08:10 | disposition home or self-care (01) ==
LOC: ONCMED 08:11
PROVIDERS: PCP Family Medicine; Visit Provider Internal Medicine Hematology & Oncology
DX: C18.4 Malignant neoplasm of transverse colon (principal); I25.10 Atherosclerotic heart disease of native coronary artery without angina pectoris; Z95.5 Presence of coronary angioplasty implant and graft; J44.9 Chronic obstructive pulmonary disease, unspecified; Z96.652 Presence of left artificial knee joint; Z79.899 Other long term (current) drug therapy
CPT/HCPCS: 36415; 80053; 85025; 99214

== ENCOUNTER 2020-04-20 10:41 | Outpatient (CLI) | payer MEDICARE, SELFPAY | END 2020-04-20 10:42 | disposition home or self-care (01) | PROVIDERS: PCP Family Medicine; Visit Provider Surgery | DX: R19.7 Diarrhea, unspecified (principal) | CPT/HCPCS: 83630; 87493; 87506 ==

== ENCOUNTER 2020-04-27 11:00 | Outpatient (CLI) | payer MEDICARE, SELFPAY ==
[2020-04-27 11:31] LABS: Basophils % 0.5 %; Eosinophils # 0.3 10^3/uL (0.0-0.8); Eosinophils % 5.2 %; Hematocrit 45.7 % (42.0-52.0); Hemoglobin 15.3 g/dL (11.7-16.6); Lymphocytes # 1.9 10^3/uL (0.8-4.8); Lymphocytes % 29.4 %; Mean Corpuscular HGB Conc 33.5 g/dL (30.0-36.0); Mean Corpuscular Hemoglobin 29.1 pg (28.0-34.0); Mean Corpuscular Volume 86.9 fL (80-94); Mean Platelet Volume 10.6 fL (7.4-10.4); Monocytes # 0.5 10^3/uL (0.2-0.9); Monocytes % 7.4 %; Neutrophils # 3.64 10^3/uL (1.8-7.7); Neutrophils % 57.3 %; Nucleated Red Blood Cells % 0 %; Platelet Count 199 10^3/cmm (130-400); Red Blood Count 5.26 10^6/uL (4.1-5.3); Red Cell Distribution Width 13.3 % (12.1-15.1); White Blood Count 6.4 10^3/uL (4.0-10.0)
[2020-04-27 11:54] LABS: Alanine Aminotransferase 37 U/L (0-41); Albumin Level 4.1 g/dL (3.5-5.2); Alkaline Phosphatase 73 IU/L (40-130); Anion Gap 15.4 (5-19); Aspartate Amino Transferase 27 U/L (0-40); Blood Urea Nitrogen 22 mg/dL (8-23); Calcium 9.5 mg/dL (8.5-10.5); Carbon Dioxide 22 mmol/L (22-29); Chloride 98 mmol/L (98-107); Glucose 117 mg/dL (65-115); Osmolality Calculated 276 mOsm/kg (285-295); Potassium 4.4 mmol/L (3.5-5.1); Sodium 131 mmol/L (136-145); Total Bilirubin 0.2 mg/dL (0.15-1.2); Total Protein 8.1 g/dL (6.6-8.7)
--- NOTE | 2020-04-27 14:18 | ONC FU_ITS ---
Dr. Brumfield follow up note Patient: Cliff Oswald Unit #: [id number]: 1945 Dicatated By: Nilsa Brumfield M.D.Date of Visit:Apr 27, 2020 Onc Med Follow-up/Prog Note History of Present Illness: Mr. Cliff Oswald is a 74-year-old gentleman, recently diagnosed with colon cancer, patient underwent colonoscopy on November 11, 2019 which showed in the mid to distal transverse colon there was a circumferential mass, biopsies were obtained and pathology came back adenocarcinoma subsequently patient underwent CT scan of abdomen pelvis which was done on November 19, 2019 which showed transverse colon mass with mild luminal narrowing. Mass extends over the length of 4.7 cm. No metastatic disease to the liver or adrenal glands. A very small lymph node adjacent to transverse colon mass and then additional lymph nodes near jaclyn hepatis and distal esophagus are stable since 2018. Hepatomegaly and hepatic steatosis. And extensive diverticulosis without diverticulitis. Patient underwent laparoscopic extended right hemicolectomy with extracorporeal ileocolic stapled advg-[id number] anastomosis on November 24, 2019 final pathology report showed moderately differentiated adenocarcinoma tumor invades muscularis propria, T2 With clear surgical margins and 0 out of 29 lymph nodes showed metastatic disease, N 0, lymphovascular invasion seen in small vessels and large vessels. Pathological stage T2 ,N0, stage II, MSI/MMR intact Patient tolerated procedure well now healing well. Past medical history significant for COPD, coronary artery disease status post CABG x3, right knee replacement., Patient is a former smoker, no history of alcohol use. Came for follow-up, denies any specific complaint except chronic diarrhea now being evaluated by Dr. Simmons, as per patient he was given double antibiotics, with that his diarrhea got worse now he is being treated with steroids and on April 20, 2020 stool sample were negative for enteric bacterial/parasite/C. difficile by PCR. Patient denies any history of blood in his stool denies any history of jaundice denies any history of abdominal pain or weight loss. Medications: Aspirin Low Dose Adult 1 Tablet (of 81 mg) Tablet, chewable Oral daily, CoQ10 1 Capsule Oral daily, Losartan Potassium 1 Tablet (of 25 mg) Oral daily, Metoprolol Tartrate 1 Tablet (of 25 mg) Oral b.i.d., Nitroglycerin 1 Tablet (of 0.4 mg) Tablet, sublingual Sublingual t.i.d. PRN, traZODone HCl 1 Tablet (of 100 mg) Oral at bedtime, Voltaren (1 %) Gel (jelly) Transdermal t.i.d. Allergies: Sulfa Antibiotics Review of Systems: Review of Systems is not available for this patient. Vital Signs: Performed on Apr 27, 2020 13:30 Height - 72.00 in Weight - 208.4 lbs (LOW) BSA - 2.17 sq.m BMI - 28.26 Temperature - 97.3 F (LOW) Pulse - 67 /min Respiration - 17 /min BP - 116/74 mm(hg) O2 Sat - 98 % Pain - 0 Performance Status: 0 - Fully active, able to carry on all predisease activities without restrictions. (ECOG) Physical Examination: ENMT - No mouth sores no thrush, no jaundice, Respiratory - Lungs are clear to auscultation, Cardiovascular - Regular rate and rhythm of heart, Abdomen - Soft, bowel sounds present, Extremities - No visible edema. Lab/Imaging: Test performed on Apr 27, 2020 11:18 Sodium 131 mmol/L Potassium 4.4 mmol/L Chloride 98 mmol/L CO2 22 mmol/L Anion Gap 15.4 BUN 22 mg/dL Creatinine 0.9 mg/dL Cr Clearance (Est) 99.2000 mL/min Glucose 117 mg/dL Osmolality - Calculated 276 mOsm/kg Calcium 9.5 mg/dL Protein, Total 8.1 g/dL Albumin 4.1 g/dL Globulin 4.0 g/dL Bilirubin, Total 0.2 mg/dL ALT (SGPT) 37 U/L AST (SGOT) 27 U/L Alkaline Phosphatase 73 IU/L WBC 6.4 10 3/uL RBC 5.26 10 6/uL HGB 15.3 g/dL HCT 45.7 % MCV 86.9 fL MCH 29.1 pg MCHC 33.5 g/dL RDW 13.3 % Platelet Count 199 10 3/cmm MPV 10.6 fL Neutrophils 3.64 10 3/uL Lymphocytes 1.9 10 3/uL Monocytes 0.5 10 3/uL Eosinophils 0.3 10 3/uL Basophils 0.0 10 3/uL Neutrophil % 57.3 % Lymphocyte % 29.4 % Monocyte % 7.4 % Eosinophil % 5.2 % Basophils % 0.5 % NRBC % 0 % Impression: Node negative, 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 Pathological stage T2, N0, stage II, MSI/MMR intact CT scan of abdomen pelvis done on November 19, 2019 showed no metastatic disease to the liver. CAD, status post CABG x3 COPD, Status post left knee replacement Plan: Discussed with patient regarding his labs white blood count 8.4 hemoglobin 15.3 hematocrit 45.7 platelets 199,000 CMP within normal limits Clinically, patient doing well with no new signs symptoms just above recurrence of disease his lab work-up is within normal range Patient has history of chronic diarrhea etiology remained unclear, now being managed by Dr. Simmons, as per patient he was given oral antibiotics without much help now on steroids. Patient was advised to consider Metamucil if is okay with Dr. Simmons. Otherwise he will return in 3 months with CBC CMP and CEA Signed By: Nilsa Brumfield M.D. <<Signature on File>>
== END 2020-04-27 11:01 | disposition home or self-care (01) ==
PROVIDERS: PCP Family Medicine; Visit Provider Internal Medicine Hematology & Oncology
DX: C18.4 Malignant neoplasm of transverse colon (principal); K52.9 Noninfective gastroenteritis and colitis, unspecified; J44.9 Chronic obstructive pulmonary disease, unspecified; I25.10 Atherosclerotic heart disease of native coronary artery without angina pectoris; Z95.1 Presence of aortocoronary bypass graft; Z79.52 Long term (current) use of systemic steroids; Z90.49 Acquired absence of other specified parts of digestive tract
CPT/HCPCS: 36415; 80053; 85025; 99214

== ENCOUNTER 2020-07-28 10:53 | Outpatient (CLI) | payer MEDICARE, SELFPAY ==
[2020-07-28 12:02] LABS: Basophils % 0.6 %; Eosinophils # 0.5 10^3/uL (0.0-0.8); Eosinophils % 7.2 %; Hematocrit 46.1 % (42.0-52.0); Hemoglobin 14.9 g/dL (11.7-16.6); Lymphocytes # 2.1 10^3/uL (0.8-4.8); Mean Corpuscular HGB Conc 32.3 g/dL (30.0-36.0); Mean Corpuscular Hemoglobin 30.2 pg (28.0-34.0); Mean Corpuscular Volume 93.5 fL (80-94); Mean Platelet Volume 10.8 fL (7.4-10.4); Monocytes # 0.6 10^3/uL (0.2-0.9); Monocytes % 8.5 %; Neutrophils # 3.57 10^3/uL (1.8-7.7); Neutrophils % 52.4 %; Nucleated Red Blood Cells % 0 %; Platelet Count 192 10^3/cmm (130-400); Red Blood Count 4.93 10^6/uL (4.1-5.3); Red Cell Distribution Width 12.6 % (12.1-15.1); White Blood Count 6.8 10^3/uL (4.0-10.0)
[2020-07-28 12:27] LABS: Albumin Level 4.1 g/dL (3.5-5.2); Alkaline Phosphatase 63 IU/L (40-130); Aspartate Amino Transferase 42 U/L (0-40); Blood Urea Nitrogen 17 mg/dL (8-23); Calcium 8.7 mg/dL (8.5-10.5); Carbon Dioxide 21 mmol/L (22-29); Chloride 102 mmol/L (98-107); Globulin 3.5 g/dL (1.3-4.6); Glucose 107 mg/dL (65-115); Osmolality Calculated 278 mOsm/kg (285-295); Sodium 133 mmol/L (136-145); Total Bilirubin 0.2 mg/dL (0.15-1.2); Total Protein 7.6 g/dL (6.6-8.7)
[2020-07-28 12:38] LABS: Alanine Aminotransferase 63 U/L (0-41)
[2020-07-28 12:39] LABS: Anion Gap 14.9 (5-19); Potassium 4.9 mmol/L (3.5-5.1)
--- NOTE | 2020-07-28 16:56 | ONC FU_ITS ---
Dr. Brumfield follow up note Patient: Cliff Oswald Unit #: [id number]: 1945 Dicatated By: Nilsa Brumfield M.D.Date of Visit:Jul 28, 2020 Onc Med Follow-up/Prog Note History of Present Illness: Mr. Cliff Oswald is a 75-year-old gentleman, recently diagnosed with colon cancer, patient underwent colonoscopy on November 11, 2019 which showed in the mid to distal transverse colon there was a circumferential mass, biopsies were obtained and pathology came back adenocarcinoma subsequently patient underwent CT scan of abdomen pelvis which was done on November 19, 2019 which showed transverse colon mass with mild luminal narrowing. Mass extends over the length of 4.7 cm. No metastatic disease to the liver or adrenal glands. A very small lymph node adjacent to transverse colon mass and then additional lymph nodes near jaclyn hepatis and distal esophagus are stable since 2018. Hepatomegaly and hepatic steatosis. And extensive diverticulosis without diverticulitis. Patient underwent laparoscopic extended right hemicolectomy with extracorporeal ileocolic stapled ecaf-[id number]-[id number] anastomosis on November 24, 2019 final pathology report showed moderately differentiated adenocarcinoma tumor invades muscularis propria, T2 With clear surgical margins and 0 out of 29 lymph nodes showed metastatic disease, N 0, lymphovascular invasion seen in small vessels and large vessels. Pathological stage T2 ,N0, stage II, MSI/MMR intact Past medical history significant for COPD, coronary artery disease status post CABG x3, right knee replacement., Patient is a former smoker, no history of alcohol use. Came for follow-up, denies any specific complaints, no fever chills, no nausea or vomiting, no diarrhea constipation, no melena or hematochezia, no abdominal pain, no jaundice, appetite is good Medications: Aspirin Low Dose Adult 1 Tablet (of 81 mg) Tablet, chewable Oral daily, CoQ10 1 Capsule Oral daily, Losartan Potassium 1 Tablet (of 25 mg) Oral daily, Metoprolol Tartrate 1 Tablet (of 25 mg) Oral b.i.d., Nitroglycerin 1 Tablet (of 0.4 mg) Tablet, sublingual Sublingual t.i.d. PRN, traZODone HCl 1 Tablet (of 100 mg) Oral at bedtime, Voltaren (1 %) Gel (jelly) Transdermal t.i.d. Allergies: Sulfa Antibiotics Review of Systems: Review of Systems is not available for this patient. Vital Signs: Performed on Jul 28, 2020 14:20 Height - 72.00 in Weight - 214.4 lbs (HIGH) BSA - 2.19 sq.m BMI - 29.08 Temperature - 97.0 F (LOW) Pulse - 72 /min Respiration - 18 /min BP - 125/68 mm(hg) O2 Sat - 96 % Pain - 0 Fatigue - 0 Performance Status: 0 - Fully active, able to carry on all predisease activities without restrictions. (ECOG) Physical Examination: ENMT - No mouth sores, no thrush, no jaundice, no cervical lymphadenopathy, Respiratory - Lungs are clear to auscultation, Cardiovascular - Regular rate and rhythm of heart, Abdomen - Soft, bowel sounds present, Extremities - No visible edema. Lab/Imaging: Test performed on Apr 27, 2020 11:18 Sodium 131 mmol/L Potassium 4.4 mmol/L Chloride 98 mmol/L CO2 22 mmol/L Anion Gap 15.4 BUN 22 mg/dL Creatinine 0.9 mg/dL Cr Clearance (Est) 99.2000 mL/min Glucose 117 mg/dL Osmolality - Calculated 276 mOsm/kg Calcium 9.5 mg/dL Protein, Total 8.1 g/dL Albumin 4.1 g/dL Globulin 4.0 g/dL Bilirubin, Total 0.2 mg/dL ALT (SGPT) 37 U/L AST (SGOT) 27 U/L Alkaline Phosphatase 73 IU/L WBC 6.4 10 3/uL RBC 5.26 10 6/uL HGB 15.3 g/dL HCT 45.7 % MCV 86.9 fL MCH 29.1 pg MCHC 33.5 g/dL RDW 13.3 % Platelet Count 199 10 3/cmm MPV 10.6 fL Neutrophils 3.64 10 3/uL Lymphocytes 1.9 10 3/uL Monocytes 0.5 10 3/uL Eosinophils 0.3 10 3/uL Basophils 0.0 10 3/uL Neutrophil % 57.3 % Lymphocyte % 29.4 % Monocyte % 7.4 % Eosinophil % 5.2 % Basophils % 0.5 % NRBC % 0 % Impression: Node negative, 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 Pathological stage T2, N0, stage II, MSI/MMR intact CT scan of abdomen pelvis done on November 19, 2019 showed no metastatic disease to the liver. CAD, status post CABG x3 COPD, Status post left knee replacement Plan: Discussed with patient regarding his labs white blood count 6.8 hemoglobin 14.9 hematocrit 46.1 platelets 192,000 CMP within normal limits except ALT 63 and AST 42 compared to 37/27 on April 27, 2020, CEA 3 Clinically, patient doing well with no new signs symptom suggestive of recurrence of disease his lab work-up is within normal range except mildly elevated ALT AST, etiology is unclear could be due to lab variation or medication or fatty liver infiltration or infection but less likely or recurrence of disease, less likely CEA is within normal range at 3 , Patient return to clinic in 1 month with CMP if his LFTs continue to progress, will consider further evaluation. Patient is also due for yearly colonoscopy in October 2020. Signed By: Nilsa Brumfield M.D. <<Signature on File>>
== END 2020-07-28 10:54 | disposition home or self-care (01) ==
LOC: ONCMED 10:57
PROVIDERS: PCP Family Medicine; Visit Provider Internal Medicine Hematology & Oncology
DX: Z08 Encounter for follow-up examination after completed treatment for malignant neoplasm (principal); Z90.49 Acquired absence of other specified parts of digestive tract; I25.10 Atherosclerotic heart disease of native coronary artery without angina pectoris; Z95.1 Presence of aortocoronary bypass graft; J44.9 Chronic obstructive pulmonary disease, unspecified; Z96.652 Presence of left artificial knee joint; Z79.899 Other long term (current) drug therapy
CPT/HCPCS: 36415; 80053; 82378; 85025; 99214

== ENCOUNTER 2020-09-01 11:31 | Outpatient (CLI) | payer MEDICARE, SELFPAY ==
[2020-09-01 12:11] LABS: Alanine Aminotransferase 58 U/L (0-41); Albumin Level 4.2 g/dL (3.5-5.2); Alkaline Phosphatase 68 IU/L (40-130); Anion Gap 15.7 (5-19); Aspartate Amino Transferase 31 U/L (0-40); Blood Urea Nitrogen 18 mg/dL (8-23); Calcium 9.1 mg/dL (8.5-10.5); Carbon Dioxide 21 mmol/L (22-29); Chloride 102 mmol/L (98-107); Globulin 3.7 g/dL (1.3-4.6); Glucose 114 mg/dL (65-115); Osmolality Calculated 281 mOsm/kg (285-295); Potassium 4.7 mmol/L (3.5-5.1); Sodium 134 mmol/L (136-145); Total Bilirubin 0.3 mg/dL (0.15-1.2); Total Protein 7.9 g/dL (6.6-8.7)
--- NOTE | 2020-09-01 13:34 | ONC FU_ITS ---
Dr. Brumfield follow up note Patient: Cliff Oswald Unit #: [id number]: 1945 Dicatated By: Nilsa Brumfield M.D.Date of Visit:Sep 01, 2020 Onc Med Follow-up/Prog Note History of Present Illness: Mr. Cliff Oswald is a 75-year-old gentleman, recently diagnosed with colon cancer, patient underwent colonoscopy on November 11, 2019 which showed in the mid to distal transverse colon there was a circumferential mass, biopsies were obtained and pathology came back adenocarcinoma subsequently patient underwent CT scan of abdomen pelvis which was done on November 19, 2019 which showed transverse colon mass with mild luminal narrowing. Mass extends over the length of 4.7 cm. No metastatic disease to the liver or adrenal glands. A very small lymph node adjacent to transverse colon mass and then additional lymph nodes near jaclyn hepatis and distal esophagus are stable since 2018. Hepatomegaly and hepatic steatosis. And extensive diverticulosis without diverticulitis. Patient underwent laparoscopic extended right hemicolectomy with extracorporeal ileocolic stapled kwbw-qh-moxa anastomosis on November 24, 2019 final pathology report showed moderately differentiated adenocarcinoma tumor invades muscularis propria, T2 With clear surgical margins and 0 out of 29 lymph nodes showed metastatic disease, N 0, lymphovascular invasion seen in small vessels and large vessels. Pathological stage T2 ,N0, stage II, MSI/MMR intact Past medical history significant for COPD, coronary artery disease status post CABG x3, right knee replacement., Patient is a former smoker, no history of alcohol use. Came for follow-up, denies any specific complaints, no fever chills, no nausea or vomiting, no diarrhea or constipation, no abdominal pain, no jaundice, Medications: Aspirin Low Dose Adult 1 Tablet (of 81 mg) Tablet, chewable Oral daily, CoQ10 1 Capsule Oral daily, Losartan Potassium 1 Tablet (of 25 mg) Oral daily, Metoprolol Tartrate 1 Tablet (of 25 mg) Oral b.i.d., Nitroglycerin 1 Tablet (of 0.4 mg) Tablet, sublingual Sublingual t.i.d. PRN, traZODone HCl 1 Tablet (of 100 mg) Oral at bedtime, Voltaren (1 %) Gel (jelly) Transdermal t.i.d. Allergies: Sulfa Antibiotics Review of Systems: Review of Systems is not available for this patient. Vital Signs: Vitals are not available for this patient. Performance Status: 0 - Fully active, able to carry on all predisease activities without restrictions. (ECOG) Physical Examination: ENMT - No mouth sores, no thrush, no jaundice, Respiratory - Lungs are clear to auscultation, Cardiovascular - Regular rate and rhythm of heart, Abdomen - Soft, bowel sounds present, Extremities - No visible edema or rash. Lab/Imaging: Test performed on Apr 27, 2020 11:18 Sodium 131 mmol/L Potassium 4.4 mmol/L Chloride 98 mmol/L CO2 22 mmol/L Anion Gap 15.4 BUN 22 mg/dL Creatinine 0.9 mg/dL Cr Clearance (Est) 99.2000 mL/min Glucose 117 mg/dL Osmolality - Calculated 276 mOsm/kg Calcium 9.5 mg/dL Protein, Total 8.1 g/dL Albumin 4.1 g/dL Globulin 4.0 g/dL Bilirubin, Total 0.2 mg/dL ALT (SGPT) 37 U/L AST (SGOT) 27 U/L Alkaline Phosphatase 73 IU/L WBC 6.4 10 3/uL RBC 5.26 10 6/uL HGB 15.3 g/dL HCT 45.7 % MCV 86.9 fL MCH 29.1 pg MCHC 33.5 g/dL RDW 13.3 % Platelet Count 199 10 3/cmm MPV 10.6 fL Neutrophils 3.64 10 3/uL Lymphocytes 1.9 10 3/uL Monocytes 0.5 10 3/uL Eosinophils 0.3 10 3/uL Basophils 0.0 10 3/uL Neutrophil % 57.3 % Lymphocyte % 29.4 % Monocyte % 7.4 % Eosinophil % 5.2 % Basophils % 0.5 % NRBC % 0 % Impression: Node negative, 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 Pathological stage T2, N0, stage II, MSI/MMR intact CT scan of abdomen pelvis done on November 19, 2019 showed no metastatic disease to the liver. CAD, status post CABG x3 COPD, Status post left knee replacement Plan: Discussed with patient regarding his labs CMP shows improvement in his transaminases, AST down to normal, now 31 compared to 42 previously on July 28, 2020 and ALT 58 compared to 63 previously, alk phos and bilirubin within normal range as remaining CMP except sodium 134 Clinically, patient doing well with no new signs symptom suggestive of recurrence of disease his lab work-up done last month shows elevated transaminases,, Now follow-up labs shows improvement, as per patient he was taking too much Tylenol now has stopped altogether, denies alcohol use, denies any weight gain, denies any jcai-odd-tnitnen medication. We will continue to monitor he will return to clinic in 4 months with CBC CMP and CEA, is due for his follow-up colonoscopy in October 2020, patient said he will call Dr. Simmons's office for appointment Signed By: Nilsa Brumfield M.D. <<Signature on File>>
== END 2020-09-01 11:32 | disposition home or self-care (01) ==
LOC: ONCMED 11:33
PROVIDERS: PCP Family Medicine; Visit Provider Internal Medicine Hematology & Oncology
DX: Z08 Encounter for follow-up examination after completed treatment for malignant neoplasm (principal); Z85.038 Personal history of other malignant neoplasm of large intestine; I25.10 Atherosclerotic heart disease of native coronary artery without angina pectoris; Z95.5 Presence of coronary angioplasty implant and graft; J44.9 Chronic obstructive pulmonary disease, unspecified; Z96.652 Presence of left artificial knee joint; Z79.899 Other long term (current) drug therapy
CPT/HCPCS: 36415; 80053; 99214

== ENCOUNTER → 2020-10-14 14:10 | Outpatient (BNVA) | payer MEDICARE, SELFPAY | PROVIDERS: PCP Family Medicine; Visit Provider Surgery | DX: Z20.822 Contact with and (suspected) exposure to COVID-19 (principal) | CPT/HCPCS: 87635 ==

== ENCOUNTER 2020-10-21 09:00 | Day surgery (SDC) | payer MEDICARE, SELFPAY ==
[2020-10-15 14:59] VITALS: BMI 28.8
--- NOTE | 2020-10-21 09:19 | ANES.PREANE2 ---
Pre-Anesthetic Assessment Pre-Anesthetic Assessment: Height/Weight: Height 1.83 m Weight 96.615 kg Preop Diagnosis: diagnostic Proposed Procedure: Operation Date: 10/21/20 11:00 Proposed Procedures p Colonoscopy 39034 z12.11(Not Applicable) - Mckay Simmons MD Was Beta Apolinar taken within 24 hours: Yes Was Clonidine taken within 24 hours: N/A Social: Social History: Tobacco and No alcohol Exam: Pre-Anes Outpt Exam: alert, oriented x 3, clear to auscultation bilaterally and regular rate & rhythm Airway: Submandibular: WNL Cervical ROM: WNL MP: 2 Dentition: Chipped CV/HEM: CV/HEM: CAD (CABG) and HTN GI: Comments: Colon CA Metabolic: Metabolic: DM Anesthetic Plan: ASA status: 3 Anesthesia: MAC Risk of > 500 ml blood loss (7ml/kg in children): No PFSH Anesthesia PFSH: Medical History (Updated 09/29/20 @ 16:00 by Mckay Simmons MD) 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 COPD (chronic obstructive pulmonary disease) Coronary artery disease GERD (gastroesophageal reflux disease) History of scarlet fever Hyperlipidemia associated with type 2 diabetes mellitus Surgical History S/P CABG (coronary artery bypass graft) S/P CABG x 3 S/P knee replacement Left S/P PTCA (percutaneous transluminal coronary angioplasty) 2010 X2 S/P right hemicolectomy (11/24/19) S/P wrist surgery Left Status post colonoscopy with polypectomy (11/11/19) Status post right inguinal hernia repair Family History Sister Cancer breast Mother Hypercholesterolemia Myocardial infarction Father Myocardial infarction Diabetes Denies family history of Anesthesia complication Bleeding disorder Social History Smoking and tobacco status: former smoker Alcohol intake: never Household members: spouse Marital status: Current occupational status: retired History of recent travel: No Data Anesthesia Cardiac Studies: No Data to Display
--- NOTE | 2020-10-21 10:01 | W.PM.OPSUD ---
Surgery/Procedure H&P Update DATE OF PROCEDURE: October 21, 2020 DATE H&P PERFORMED: 09/28/20 H&P UPDATE INFORMATION: I have reviewed H&P completed within last 30 days, I have examined patient prior to procedure and No changes to prior documentation PREOP DIAGNOSIS: diagnostic PLANNED PROCEDURE: Operation Date: 10/21/20 11:00 Proposed Procedures p Colonoscopy 18259 z12.11(Not Applicable) - Mckay Simmons MD
[2020-10-21 10:05] VITALS: BP 124/85; PULSE 86; RESP 18; TEMP 36.1; O2SAT 92
[2020-10-21] MEDS: sodium chloride 0.9% 1,000 ML 30 ML IV (10:26)
[2020-10-21 11:01] VITALS: BP 96/64; PULSE 89; RESP 16; TEMP 36.2; O2SAT 95
[2020-10-21 11:15] VITALS: BP 97/65; PULSE 77; RESP 16; O2SAT 97
--- NOTE | 2020-10-21 16:18 | ANE.PACU2 ---
Inpatient post-anesthesia follow up: Airway intact: Yes Vital signs: Temperature 97.1 F Pulse Rate 77 Respiratory Rate 16 Blood Pressure 97/65 Pulse Oximetry 97 Oxygen Delivery Me thod Room Air Oxygen Flow Rate 3 Fraction of Inspir ed Oxygen Hydration adequate: Yes Nausea and vomiting: No Pain level: 1 Mental status: Baseline
== END 2020-10-21 11:40 | disposition home or self-care (01) ==
PROVIDERS: PCP Family Medicine; Visit Provider Surgery
PROC: 0DJD8ZZ Inspection of Lower Intestinal Tract, Via Natural or Artificial Opening Endoscopic (ICD-10-PCS; CPT 45378; principal; 2020-10-21 11:00)
DX: Z12.11 Encounter for screening for malignant neoplasm of colon (principal); K57.30 Diverticulosis of large intestine without perforation or abscess without bleeding; I25.10 Atherosclerotic heart disease of native coronary artery without angina pectoris; Z95.1 Presence of aortocoronary bypass graft; I10 Essential (primary) hypertension; E11.9 Type 2 diabetes mellitus without complications; E78.5 Hyperlipidemia, unspecified; Z82.49 Family history of ischemic heart disease and other diseases of the circulatory system; Z87.891 Personal history of nicotine dependence
CPT/HCPCS: 45378; 96360; J2704; J7030

== ENCOUNTER 2021-02-08 12:11 | Outpatient (CLI) | payer MEDICARE, SELFPAY ==
[2021-02-08 12:51] LABS: Basophils % 0.6 %; Eosinophils # 0.4 10^3/uL (0.0-0.8); Eosinophils % 6.9 %; Hematocrit 47.5 % (42.0-52.0); Hemoglobin 15.6 g/dL (11.7-16.6); Lymphocytes # 2.4 10^3/uL (0.8-4.8); Mean Corpuscular HGB Conc 32.8 g/dL (30.0-36.0); Mean Corpuscular Hemoglobin 29.5 pg (28.0-34.0); Mean Platelet Volume 11.1 fL (7.4-10.4); Monocytes # 0.6 10^3/uL (0.2-0.9); Neutrophils # 2.87 10^3/uL (1.8-7.7); Neutrophils % 45.3 %; Nucleated Red Blood Cells % 0 %; Platelet Count 211 10^3/cmm (130-400); Red Blood Count 5.28 10^6/uL (4.1-5.3); Red Cell Distribution Width 12.8 % (12.1-15.1); White Blood Count 6.3 10^3/uL (4.0-10.0)
[2021-02-08 13:07] LABS: Alanine Aminotransferase 37 U/L (0-41); Albumin Level 4.3 g/dL (3.5-5.2); Alkaline Phosphatase 67 IU/L (40-130); Blood Urea Nitrogen 14 mg/dL (8-23); Calcium 8.9 mg/dL (8.5-10.5); Carbon Dioxide 21 mmol/L (22-29); Globulin 4.2 g/dL (1.3-4.6); Glucose 100 mg/dL (65-115); Total Bilirubin 0.3 mg/dL (0.15-1.2); Total Protein 8.5 g/dL (6.6-8.7)
[2021-02-08 13:21] LABS: Aspartate Amino Transferase 32 U/L (0-40)
[2021-02-08 13:50] LABS: Carcinoembryonic Antigen 3.1 ng/mL (0.0-4.7)
[2021-02-08 14:03] LABS: Osmolality Calculated 283 mOsm/kg (285-295)
[2021-02-08 14:06] LABS: Chloride 99 mmol/L (98-107); Sodium 136 mmol/L (136-145)
--- NOTE | 2021-02-08 17:19 | ONC FU_ITS ---
Dr. Brumfield follow up note Patient: Cliff Oswald Unit #: [id number]: 1945 Dicatated By: Nilsa Brumfield M.D.Date of Visit:Feb 08, 2021 Onc Med Follow-up/Prog Note History of Present Illness: Mr. Cliff Oswald is a 75-year-old gentleman, recently diagnosed with colon cancer, patient underwent colonoscopy on November 11, 2019 which showed in the mid to distal transverse colon there was a circumferential mass, biopsies were obtained and pathology came back adenocarcinoma subsequently patient underwent CT scan of abdomen pelvis which was done on November 19, 2019 which showed transverse colon mass with mild luminal narrowing. Mass extends over the length of 4.7 cm. No metastatic disease to the liver or adrenal glands. A very small lymph node adjacent to transverse colon mass and then additional lymph nodes near jaclyn hepatis and distal esophagus are stable since 2018. Hepatomegaly and hepatic steatosis. And extensive diverticulosis without diverticulitis. Patient underwent laparoscopic extended right hemicolectomy with extracorporeal ileocolic stapled saga-ww-hqkl anastomosis on November 24, 2019 final pathology report showed moderately differentiated adenocarcinoma tumor invades muscularis propria, T2 With clear surgical margins and 0 out of 29 lymph nodes showed metastatic disease, N 0, lymphovascular invasion seen in small vessels and large vessels. Pathological stage T2 ,N0, stage II, MSI/MMR intact Past medical history significant for COPD, coronary artery disease status post CABG x3, right knee replacement., Patient is a former smoker, no history of alcohol use. Underwent follow-up colonoscopy on October 21, 2020 shows ileocolic anastomosis, patent, no evidence of recurrence and rest of exam is within normal range Came for follow-up, denies any specific complaints, no fever chills, no nausea or vomiting, no diarrhea constipation, no melena hematochezia, no hemoptysis hematemesis, no jaundice, no abdominal pain, recently underwent colonoscopy and it was unremarkable Medications: Aspirin Low Dose Adult 1 Tablet (of 81 mg) Tablet, chewable Oral daily, CoQ10 1 Capsule Oral daily, Losartan Potassium 1 Tablet (of 25 mg) Oral daily, Metoprolol Tartrate 1 Tablet (of 25 mg) Oral b.i.d., Nitroglycerin 1 Tablet (of 0.4 mg) Tablet, sublingual Sublingual t.i.d. PRN, traZODone HCl 1 Tablet (of 100 mg) Oral at bedtime, Voltaren (1 %) Gel (jelly) Transdermal t.i.d. Allergies: Sulfa Antibiotics Review of Systems: Review of Systems is not available for this patient. Vital Signs: Performed on Feb 08, 2021 14:40 Height - 72.00 in Weight - 213.4 lbs (HIGH) BSA - 2.19 sq.m BMI - 28.94 Temperature - 97.4 F (LOW) Pulse - 69 /min Respiration - 18 /min BP - 121/76 mm(hg) O2 Sat - 97 % Pain - 0 Fatigue - 2 Performance Status: 0 - Fully active, able to carry on all predisease activities without restrictions. (ECOG) Physical Examination: ENMT - No mouth sores, no thrush, no jaundice, Respiratory - Lungs are clear to auscultation, Cardiovascular - Regular rate and rhythm of heart, Abdomen - Soft, bowel sounds present, Extremities - No visible edema. Lab/Imaging: Most recent lab results are not available for this patient. 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 Pathological stage T2, N0, stage II, MSI/MMR intact CT scan of abdomen pelvis done on November 19, 2019 showed no metastatic disease to the liver. CAD, status post CABG x3 COPD, Status post left knee replacement Plan: Discussed with patient regarding his labs white blood count 6.3 hemoglobin 15.6 hematocrit 47.5 platelets 211,000 CMP within normal limits CEA 3.1 Colonoscopy done in September 2020 shows no recurrence of disease Clinically, patient doing well with no new signs symptoms history of recurrence of disease his lab work-up including tumor marker within normal range patient recently underwent colonoscopy shows no recurrence of disease, at this point we will continue to monitor and he will return to clinic in 6 months with CBC CMP and CEA Signed By: Nilsa Brumfield M.D. <<Signature on File>>
== END 2021-02-08 12:12 | disposition home or self-care (01) ==
LOC: ONCMED 12:15
PROVIDERS: PCP Physician Assistant; Visit Provider Internal Medicine Hematology & Oncology
DX: Z85.038 Personal history of other malignant neoplasm of large intestine (principal); J44.9 Chronic obstructive pulmonary disease, unspecified; I25.10 Atherosclerotic heart disease of native coronary artery without angina pectoris; Z79.82 Long term (current) use of aspirin; Z95.1 Presence of aortocoronary bypass graft; Z87.891 Personal history of nicotine dependence
CPT/HCPCS: 36415; 80053; 82378; 85025; 99214

== ENCOUNTER → 2021-05-10 15:38 | Outpatient (BNVA) | payer MEDICARE, SELFPAY | PROVIDERS: PCP Physician Assistant; Visit Provider Internal Medicine | DX: R06.02 Shortness of breath (principal); R07.9 Chest pain, unspecified; I25.10 Atherosclerotic heart disease of native coronary artery without angina pectoris; E11.69 Type 2 diabetes mellitus with other specified complication; E78.5 Hyperlipidemia, unspecified; Z87.891 Personal history of nicotine dependence | CPT/HCPCS: 99214 ==

== ENCOUNTER 2021-06-23 07:59 | Outpatient (CLI) | payer MEDICARE, SELFPAY ==
--- NOTE | 2021-06-23 08:00 | USCV_ITS ---
Cliff Oswald Age: 75 Gender: M : 1945 Exam Date: 06/23/2021 08:12 Ordering Phys: Bony Jackson M.D ([email or web address]) Technologist: Exam Location: [facility] [place] Indication: hx cabg BP: 128 / 74 HR: 58 Rhythm: Sinus Technical Quality: Adequate MEASUREMENTS (Male / Female) Normal Values 2D ECHO LV Diastolic Diameter PLAX 4.8 cm 4.2 - 5.9 / 3.9 - 5.3 cm LV Systolic Diameter PLAX 3.4 cm IVS Diastolic Thickness 0.8 cm 0.6 - 1.0 / 0.6 - 0.9 cm IVS Systolic Thickness 1.4 cm LVPW Diastolic Thickness 1.0 cm 0.6 - 1.0 / 0.6 - 0.9 cm LVPW Systolic Thickness 1.6 cm LVOT Diameter 2.1 cm LV Ejection Fraction 2D Teich 55.3 % LV Ejection Fraction MOD 2C 64.6 % LV Ejection Fraction 2C AL 64.6 % LA Diameter 4.3 cm Aorta at Sinotubular Diameter 2.8 cm M-MODE Aortic Annulus Diameter 3.3 cm LA Ao Ratio MM 1.5 MV E Point Septal Separation 1.5 cm DOPPLER AV Peak Velocity 135.0 cm/s LVOT Peak Velocity 105.0 cm/s AV Area Cont Eq vti 2.4 cm squared AV Area Cont Eq pk 2.6 cm squared MV Area PHT 5.0 cm squared Mitral E to A Ratio 1.0 MV E' Velocity 53.5 cm/s Mitral E to MV E' Ratio 11.4 Mitral E to LV E' Lateral Ratio 9.8 Mitral E to LV E' Septal Ratio 13.7 TR Peak Velocity 201.7 cm/s TR Peak Gradient 16.3 mmHg TV Peak E Velocity 115.0 cm/s Right Atrial Pressure 3.0 mmHg Pulmonary Artery Systolic Pressu 19.3 mmHg PV Peak Velocity 119.0 cm/s FINDINGS Left Ventricle Normal left ventricular size. LV systolic function is normal with EF of 50-55%. No regional wall motion abnormalities. Grade 2 diastolic dysfunction Right Ventricle The right ventricle is normal in size and function. Right Atrium The right atrium is normal in size. Left Atrium The left atrium is normal in size. Mitral Valve Structurally normal mitral valve without significant stenosis or prolapse. There is mild mitral regurgitation. Aortic Valve Structurally normal aortic valve without significant sclerosis or stenosis. There is no aortic regurgitation. Tricuspid Valve Structurally normal tricuspid valve without significant stenosis. Trace tricuspid regurgitation. Insufficient TR jet to calculate RVSP Pulmonic Valve Not well-visualized Pericardium Normal pericardium without effusion. Aorta Normal ascending aorta dimension. CONCLUSIONS LV systolic function is normal with EF of 50 to 55%. Grade 2 diastolic dysfunction Mild mitral regurgitation. Trace tricuspid regurgitation. Compared to prior echocardiogram from 10/05/2015, no significant changes are seen Bony Jackson MD (Electronically Signed) Final Date: 29 Jun 2021 11:53 S
== END 2021-06-23 08:00 | disposition home or self-care (01) ==
LOC: RAD 07:59
PROVIDERS: PCP Physician Assistant; Visit Provider Internal Medicine
DX: R06.02 Shortness of breath (principal); R07.9 Chest pain, unspecified
CPT/HCPCS: 93306

== ENCOUNTER → 2021-11-09 12:45 | Outpatient (BNVA) | payer MEDICARE, SELFPAY | PROVIDERS: PCP Nurse Practitioner; Visit Provider Internal Medicine | DX: I25.10 Atherosclerotic heart disease of native coronary artery without angina pectoris (principal); E11.69 Type 2 diabetes mellitus with other specified complication; Z79.84 Long term (current) use of oral hypoglycemic drugs; E78.5 Hyperlipidemia, unspecified; Z95.1 Presence of aortocoronary bypass graft; F17.220 Nicotine dependence, chewing tobacco, uncomplicated | CPT/HCPCS: 99214 ==

== ENCOUNTER 2022-01-23 07:04 | Outpatient (CLI) | payer MEDICARE, SELFPAY ==
--- NOTE | 2022-01-23 07:11 | NMCV_ITS ---
NM ford perf SPECT r/s* [id number] Cliff Oswald Age: 76 Gender: M : 1945 Exam Date: 01/23/2022 08:21 Ordering Phys: Bony Jackson M.D ([email or web address]) Technologist: WESLEY Smith Exam Location: [facility] [place] Indications: CHEST PAIN STRESS TEST Please see separate stress test report in [facility] for full findings IMAGE PROTOCOL Rest/Stress 1 Lexiscan Day Radiopharmaceutical Dose (mCi) Administration Site Administered by Rest: Tc-99m 9.9 IV WESLEY Matthews Sestamibi Stress:Tc-99m 30.2 IV WESLEY Matthews Sestamibi Rest: 23-Jan-2022 60 Discovery 630 Stress: 23-Jan-2022 30 Discovery 630 0.4mg Lexiscan. Images obtained in supine and prone position. SPECT RESULTS Technical Quality: Excellent Raw Data Analysis: Normal Image Corrections: No attenuation or motion correction applied Summed Stress Score: 2 Summed Rest Score: 0 Summed Difference Score: 2 PERFUSION FINDINGS There is a small to medium sized area of reversible perfusion defect noted in apical lateral and inferolateral wall. This is consistent with ischemia in left circumflex artery territory. FUNCTIONAL RESULTS (calculated via Gated SPECT) Stress Image LV EF (%): 66 Stress EDV (mL):88 TID: 1.11 Stress ESV (mL):30 FUNCTIONAL FINDINGS: There is normal left ventricular systolic function. IMPRESSIONS 1. Abnormal myocardial perfusion imaging with small to medium sized area of ischemia noted in the left circumflex artery territory. 2. LV systolic function is normal Bony Jackson MD (Electronically Signed) Final Date: 26 January 2022 11:21 S
--- NOTE | 2022-01-23 07:11 | ECG_ITS ---
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 Interpretive Statements NAME OF STUDY: LEXISCAN SESTAMIBI STRESS TEST INDICATION: Chest Pain PROCEDURE: At the baseline, the blood pressure was 130/75 mm Hg with a heart rate of 66 bpm. The electrocardiogram showed sinus rhythm, probable old inferior CA. Possible RV conduction delay. ??? The Lexiscan was infused over a period of 20 seconds. A total of 0.4 milligrams of Lexiscan was infused. The stress phase was continued for a total of 5 minutes. Heart rate at the end of the stress phase was 81 bpm with a blood pressure of 133/77 mm Hg. The EKG at the peak infusion revealed no significant ST-T wave changes. ??? Sestamibi was injected 20 seconds after the Lexiscan infusion. ??? Blood pressure at the end of the recovery phase was 136/72 mm Hg with a heart rate of 81 beats per minute. ??? CONCLUSION: 1. No significant EKG changes with the LexiScan infusion. 2. No LexiScan induced chest pain or cardiac arrhythmia. 3. Normal blood pressure and heart rate response. 4. Sestamibi/sestamibi perfusion scan pending; see separate report. Electronically Signed On 01-28-2022 11:55:30 RADIATION PROTECTION SPECIALIST by Elizabeth Rubin M.D. [id number]
[2022-01-23 07:30] VITALS: BMI 28.3
[2022-01-23] MEDS: regadenoson 0.4 Mg/5 ml Syringe IVP (08:57)
[2022-01-23 09:17] VITALS: BP 135/81; PULSE 80
== END 2022-01-23 07:05 | disposition home or self-care (01) ==
LOC: RAD 07:07 → CDL 07:14
PROVIDERS: PCP Nurse Practitioner; Visit Provider Internal Medicine
DX: R07.9 Chest pain, unspecified (principal)
CPT/HCPCS: 36415; 78452; 93017; 96374; A9500; J2785

== ENCOUNTER 2022-02-15 07:07 | Outpatient (CLI) | payer MEDICARE, SELFPAY ==
[2022-02-15] VITALS (8 sets, daily range): BP systolic 109–164; BP diastolic 71–83; PULSE 51–59; RESP 16–41; TEMP 36.7; O2SAT 94–95; BMI 28.0
--- NOTE | 2022-02-15 | XACV_ITS ---
Exam Room: 2 Ht: 183 cm Wt: 94 kg BSA: 2.20 m2 Gender: Male : 1945 Any Known Allergies: Sulfa Exam Priority: Routine Procedure(s): Procedure Description: Diagnostic procedure Procedure Description: Venous Graft Catheterization Procedure Description: GUTIÉRREZ Graft Catheterization Procedure Description: Coronary Angiography Diagnostic Cath Status: Elective Diagnostic Findings * INDICATION: 76-year-old man with past medical history of coronary artery disease status post three-vessel CABG has been having on and off chest pain symptoms. He says now chest pain occurs almost every day. Does not last very long. Stress test was performed that showed small to medium sized area of ischemia in left circumflex artery territory. * Patent * bypass grafts. Patent non-grafted left circumflex artery.. * Left main artery: Long vessel, patent. LAD: It is occluded in the midsegment. Left circumflex artery: Has a mild to moderate diffuse luminal irregularities. However no severe stenosis seen. RCA: Proximally totally occluded stents. * Bypass grafts: SVG to RCA: Patent SVG to diagonal artery: Patent GUTIÉRREZ to LAD: Patent. * Coronary angiography shows right dominance. Conclusions 1. Patent 2. bypass grafts. Patent non-grafted left circumflex artery.. 3. Patient has prior CABG. Recommendations * Aggressive risk factor modification. * Outpatient cardiology follow up in 4 weeks. Interventional RX Recommendation: medical therapy and/or counseling Diagnostic RX Recommendation: medical therapy and/or counseling Pressures Phase:Rest AO : 139 / 81 ( 92 ) @ 9:11:00 AM Clinical Evaluation EBL: 5mL-10mL Procedural Details Procedure Consent Obtained. Admit Source: Out Patient. Pre-Procedure Time Out. Identified patient by full name and date of as verbalized by the patient/guarantor. Does the consent match the physician's order: Yes. Accurate & Complete Informed Consent: Yes. Inpatient/Outpatient History & Physical on Chart: Yes. If H&P is completed, is and addenduem needed: Yes; If yes, is the addendum complete: Yes. Visualize and Verify Site with Patient/Guarantor: N/A. Relevant Radiology Images available: N/A. The risks, benefits, and alternatives of sedation and/or procedure were discussed by physician. The patient agrees to continue. Procedure started. [facility] Clinical Fraility Score: 4: Vulnerable. Community Organizer Indications: Worsening Angina. Chest Pain Symptom Assessment: Typical Angina Symptoms. Correct patient, site and procedure confirmed by cath team. Current diagnosis: Chest Pain, Abnormal stress test. PERRLA. 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 Lungs clear x 5 lobes. IV Site on Arrival: 18 gauge in the right anticubital. IV Fluids: 0.9% NaCl at KVO. 0 mL infused prior to can labeler. Pre Procedural Pulses: bilateral radial was 1+. Pre Procedural Pulses: right posterior tibial was 3+. Pre Procedural Pulses: right dorsalis pedis was 3+. Pre Procedural Pulses: left dorsalis pedis was Doppled. Pre Procedural Pulses: left posterior tibial was 2+. Oxygen started at 2liters/min via nasal canula. right groin was prepped with chloroprep then draped in the usual sterile fashion. Physician notified. Baseline sample Acquired. HR: 55 BPM. Physician arrived. Physician scrubbed in. Immediate Pre-Procedure Time Out. Correct Patient: Yes; Correct Procedure: Yes; Correct Site: Yes; Correct Patient Position: Yes; Correct Supplies: Yes; Dried Flammable Prep: Yes; Blood Products Available: No;. Lidocaine 1% infiltrated to the right groin. An attempt to gain access to the right femoral artery was unsuccessful. Manual pressure was held as needed to stop the bleeding. Arterial access obtained with micropuncture set. A 5 central african JL4 catheter in over wire. Multiple views taken of left coronary artery. Catheter removed over the standard wire. A 5 central african JR4 catheter in over wire. Multiple views taken of right coronary artery. SVG's to RCA visualized and patent. SVG's to Diaganol visualized and patent. Catheter redirected to GUTIÉRREZ. GUTIÉRREZ to LAD visualized. Catheter removed over the standard wire. A Right femoral angiogram was performed to determine safe placement of closure device with hand injection of contrast through the sheath. Physician scrubbed out. Post Procedure: Pulses reassessed and unchanged. PERRLA. 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 No VTE prophylaxis required. Post-op diagnosis: Patent bypass grafts, Non-obstructive CAD. Medication's Wasted: Heparin = 1000 unit. Total IV fluids: 70 mL. Complications: None. Estimated blood loss: 5mL-10mL. Responsiveness - Normal response to verbal stimuli; alert and oriented, PERRLA. Airway - Unaffected, no intervention required; spontaneous ventilation. Circulation: W/N/L, pulses unchanged. Nausea/Vomiting: N/A. Sheath(s) removed and manual pressure held until hemostasis was achieved. Sterile 4x4 and Op-site applied to the puncture site. No oozing or hematoma noted. Post sheath removal instructions were given and the patient verbalized understanding. A Mechanical Compression was successful obtaining hemostatsis at the Right Femoral artery insertion site. Procedure completed. Patient transferred by stretcher to CPRU. Vital chart was stopped. Access Site Site: Right Femoral artery Sheath Size: 6 Fr Hemostasis Method: Mechanical Compression Hemostasis Success: Successful Procedure Medications Start: 8:44 AM Stop: 8:44 AM Medication: Fentanyl Amount: 50 mcg Route: I.V. Start: 9:00 AM Stop: 9:00 AM Medication: Versed Amount: 1 mg Route: I.V. Start: 9:03 AM Stop: 9:03 AM Medication: Versed Amount: 1 mg Route: I.V. Start: 9:21 AM Stop: 9:21 AM Medication: Fentanyl Amount: 25 mcg Route: I.V. Start: 9:34 AM Stop: 9:34 AM Medication: Fentanyl Amount: 25 mcg Route: I.V. I, the attending physician, have reviewed and verified all procedure medications. Yes, all medications given per verbal order History/Risk Factors Hypertension: Yes Dyslipidemia: No Peripheral Arterial Disease (PAD): No Myocardial Infarction (RI): No Obesity: No Renal Disease: No Tobacco Use: Current/Recent(w/in 1 year) Prior Interventions PCI: Yes CABG: Yes Valve Surgery: No Date of PCI: 02/26/2010 Report Signatures Finalized by Bony Jackson MD on 02/21/2022 09:51 AM
[2022-02-15] MEDS: diphenhydrAMINE 50 mg Capsule PO (08:05)
--- NOTE | 2022-02-15 08:54 | P.HP_ITS ---
Same Day Surgery H&P Indication for Procedure/HPI DATE OF PROCEDURE: February 15, 2022 CHIEF COMPLAINT/INDICATIONFOR SURGICAL PROCEDURE: Chest pain/abnormal stress test PREOP DIAGNOSIS: Chest pain/abnormal stress test PLANNED PROCEDURE: Operation Date: 02/15/22 08:30 Proposed Procedures p Left Heart Cath 25247 R94.39(Left) - Bony Jackson M.D 76-year-old man with past medical history of coronary artery disease status post three-vessel CABG has been having on and off chest pain symptoms. He says now chest pain occurs almost every day. Does not last very long. Stress test was performed that showed small to medium sized area of ischemia in left circumflex artery territory. ROS CONSTITUTIONAL: No fever chills weight loss or gain or night sweats. [] HEENT: Normocephalic, atraumatic.[] RESPIRATORY: No cough, sputum, hemoptysis or wheezing.[] CARDIOVASCULAR: Chest pain GI: no nausea vomiting diarrhea. [] OPTICAL GLASS ETCHER: No numbness, tingling, weakness or loss of function in any part of the body. [] MUSCULOSKELETAL: No knee or joint pain or rashes. [] Medications/Allergies* Home Medications Medication Instructions Recorded Confirmed Type aspirin 81 mg tablet,delayed 81 mg PO DAILY 07/28/19 02/15/22 History release (Adult Low Dose Aspirin) coenzyme Q10 200 mg capsule (Co 200 mg PO DAILY 07/28/19 02/14/22 History Q-10) trazodone 50 mg tablet 50 mg PO DAILY 07/28/19 02/14/22 History gabapentin 100 mg capsule 100 mg PO DAILY 11/09/21 02/14/22 History gabapentin 300 mg capsule 600 mg PO BID 11/09/21 02/14/22 History melatonin 10 mg capsule 20 mg PO DAILY 11/09/21 02/14/22 History metoprolol tartrate 25 mg tablet 12.5 mg PO DAILY 12/21/21 02/14/22 History Allergies/Adverse Reactions Allergy/AdvReac Type Severity Reaction Status Date / Time Sulfa (Sulfonamide Allergy Unknown Unknown Verified 02/14/22 07:21 Antibiotics) Current Medications: Generic Name Dose Route Start Last Admin Trade Name Freq PRN Reason Stop Dose Admin Sodium Chloride 1,000 mls @ 50 mls/hr 02/15/22 07:30 02/15/22 08:05 Sodium Chloride 0.9% IV 02/16/22 03:29 Not Given .Q20H ONE Pertinent History/Comorbid Conditions* Medical History (Updated 09/29/20 @ 16:00 by cMkay Simmons MD) 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 COPD (chronic obstructive pulmonary disease) Coronary artery disease GERD (gastroesophageal reflux disease) History of scarlet fever Hyperlipidemia associated with type 2 diabetes mellitus Surgical History (Updated 10/21/20 @ 11:31 by Mckay Simmons MD) S/P CABG (coronary artery bypass graft) S/P CABG x 3 S/P knee replacement Left S/P PTCA (percutaneous transluminal coronary angioplasty) 2010 X2 S/P right hemicolectomy (11/24/19) S/P wrist surgery Left Status post colonoscopy with polypectomy (10/21/20) 11/11/19 Status post right inguinal hernia repair Family History (Updated 10/31/19 @ 10:08 by Loraine Singer LPN) Diabetes Father Hypercholesterolemia Mother Myocardial infarction Mother Father Cancer Sister breast Denies family history of Anesthesia complication Bleeding disorder Social History Smoking and tobacco status: current every day smoker (chew) Alcohol intake: never Household members: spouse Marital status: Current occupational status: retired History of recent travel: No Pertinent Exam Findings alert, oriented x 3, clear to auscultation bilaterally and regular rate & rhythm Conscious Sedation Assessment PATIENT ASSESSED PRIOR TO SEDATION, WITH NO CHANGE NOTED: Yes AIRWAY EVAL/ANESTHESIA PLAN: normal airway, ASA III, Local Anesthesia, Risks, benefits & alternatives of sedation and/or procedure discussed and Patient agrees to continue as planned ADDITIONAL INFORMATION: Moderate sedation Recommendations Surgery/Procedure today (Left heart cath with possible percutaneous coronary intervention.) Coding Level of Care Code Acute Ocular Pathologist for Olena Gamboa
[2022-02-15 10:10] LABS: Glucose Point of Care 133 mg/dL (70-110)
--- NOTE | 2022-02-15 10:29 | PC.NURSE ---
Received pt from [employer] post diagnostic left heart cath. Right femoral sheath pulled in [employer]. 2 cm hematoma noted and marked. Nurse to continue to monitor site throughout recovery. Clear dressing on site to allow monitoring. Distal pulses palpable. Pt and family educated on restrictions while on bed rest, both acknowledged understanding. Pt placed on monitor and will be monitored per protocol. Pt complains of no pain.
--- NOTE | 2022-02-15 12:02 | PC.NURSE ---
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
[2022-02-15] MEDS: sodium chloride 0.9% 1,000 ML 50 ML IV (12:14)
--- NOTE | 2022-02-15 16:47 | PC.NURSE ---
All D/C instructions educated to patient, reported understanding, Patient signed D/C form, patient transported home by daughter
== END 2022-02-15 16:49 | disposition home or self-care (01) ==
LOC: CCL 07:09 → ICU 11:58
PROVIDERS: PCP Nurse Practitioner; Visit Provider Internal Medicine
DX: Z85.038 Personal history of other malignant neoplasm of large intestine (principal); J44.9 Chronic obstructive pulmonary disease, unspecified; K21.9 Gastro-esophageal reflux disease without esophagitis; E78.5 Hyperlipidemia, unspecified; E11.9 Type 2 diabetes mellitus without complications; Z82.49 Family history of ischemic heart disease and other diseases of the circulatory system; F17.220 Nicotine dependence, chewing tobacco, uncomplicated
CPT/HCPCS: 36415; 36416; 82962; 93455; 96361; 96365; 99152; 99153; C1769; C1887; C1894; G0378; J1644; J2250; J3010; J7030; Q0163; Q9967

== ENCOUNTER → 2024-05-26 15:34 | Outpatient (BNVA) | payer MEDICARE, SELFPAY | PROVIDERS: PCP Nurse Practitioner; Visit Provider Internal Medicine | DX: R06.02 Shortness of breath (principal); M79.604 Pain in right leg; M79.605 Pain in left leg; E11.69 Type 2 diabetes mellitus with other specified complication; E78.5 Hyperlipidemia, unspecified; I25.10 Atherosclerotic heart disease of native coronary artery without angina pectoris | CPT/HCPCS: 99214 ==

== ENCOUNTER 2024-06-05 11:47 | Outpatient (CLI) | payer MEDICARE, SELFPAY ==
--- NOTE | 2024-06-05 12:15 | USR_ITS ---
PROCEDURE INFORMATION: Exam: US Duplex Bilateral Lower Extremity Arteries Exam date and time: 06/05/2024 12:11 PM Age: 78 years old Clinical indication: Pain; Leg, lower; Bilateral; Additional info: Bilat leg pain TECHNIQUE: Imaging protocol: Real-time ultrasound scan of the arteries of the bilateral lower extremities with 2-D vigil scale, color Doppler flow and spectral waveform analysis. Images documented and saved. COMPARISON: CT abdomen pelvis w con* [id number] 11/19/2019 1:52 PM FINDINGS: Right common femoral artery: No occlusion or significant stenosis. Normal waveform. Right superficial femoral artery: No occlusion or significant stenosis. Normal waveform. Right popliteal artery: No occlusion or significant stenosis. Normal waveform. Right calf/foot arteries: No occlusion or significant stenosis in the visualized arteries. Normal waveforms. Dorsalis pedis artery is patent. Right ARIE 1.07 Left common femoral artery: No occlusion or significant stenosis. Normal waveform. Left superficial femoral artery: No occlusion or significant stenosis. Normal waveform. Left popliteal artery: No occlusion or significant stenosis. Normal waveform. Left calf/foot arteries: No occlusion or significant stenosis in the visualized arteries. Normal waveforms. Dorsalis pedis artery is patent. Left ARIE 1.12 US/CV arterial duplex [facility] [id number] IMPRESSION: No stenosis or occlusion.
== END 2024-06-05 11:48 | disposition home or self-care (01) ==
PROVIDERS: Absent Provider Dermatology; PCP Physician Assistant; Visit Provider Internal Medicine
DX: M79.604 Pain in right leg (principal); M79.605 Pain in left leg; M25.50 Pain in unspecified joint
CPT/HCPCS: 36415; 86200; 86431; 93925

== ENCOUNTER 2024-07-03 12:26 | Outpatient (CLI) | payer MEDICARE, SELFPAY ==
--- NOTE | 2024-07-03 12:45 | USCV_ITS ---
Cliff Oswald Age: 78 Gender: M : 1945 Exam Date: 07/03/2024 12:53 Ordering Phys: Bony Jackson M.D ([email or web address]) Technologist: Exam Location: [facility] [place] Indication: cp sob BP: 125 / 72 HR: 56 Rhythm: Sinus Technical Quality: Adequate MEASUREMENTS (Male / Female) Normal Values 2D ECHO LV Diastolic Diameter PLAX 5.0 cm 4.2 - 5.9 / 3.9 - 5.3 cm IVS Diastolic Thickness 1.1 cm 0.6 - 1.0 / 0.6 - 0.9 cm IVS Systolic Thickness 1.5 cm LVPW Diastolic Thickness 1.4 cm 0.6 - 1.0 / 0.6 - 0.9 cm LVPW Systolic Thickness 1.8 cm LVOT Diameter 2.1 cm LV Ejection Fraction 2D Teich 55.1 % LV Ejection Fraction MOD 4C 52.5 % LV Ejection Fraction MOD 2C 64.5 % LV Ejection Fraction 2C AL 65.5 % LA Diameter 3.8 cm RA Systolic Volume 4C AL 37.4 ml RA Systolic Volume 4C MOD 35.6 ml Aorta at Sinotubular Diameter 2.8 cm M-MODE LA Ao Ratio MM 1.4 AV Cusp Separation MM 2.4 cm DOPPLER AV Peak Velocity 107.0 cm/s LVOT Peak Velocity 84.0 cm/s AV Area Cont Eq vti 2.4 cm squared AV Area Cont Eq pk 2.6 cm squared MV Area PHT 4.2 cm squared Mitral E to A Ratio 0.8 TV Peak Velocity 164.0 cm/s TR Peak Velocity 224.0 cm/s TR Peak Gradient 20.1 mmHg TV Peak E Velocity 85.0 cm/s PV Peak Velocity 88.0 cm/s FINDINGS Left Ventricle Left ventricle is normal in size. LV systolic function is normal with EF of 50-55%. No regional wall motion abnormalities are seen. Grade 1 diastolic dysfunction. Right Ventricle Normal in size and function Right Atrium Normal in size Left Atrium Dilated Mitral Valve Structurally normal mitral valve. Mild mitral regurgitation Aortic Valve Aortic valve is thickened. No significant stenosis or regurgitation Tricuspid Valve Mild tricuspid regurgitation. Insufficient TR jet to evaluate RVSP. Pulmonic Valve Not well visualized Pericardium Normal Aorta Normal in size IVC Not well visualized CONCLUSIONS LV systolic function is normal with EF of 50-55%. Grade 1 diastolic dysfunction. Left atrial dilation. Mild mitral regurgitation Mild tricuspid regurgitation Compared to echocardiogram from 2021, no significant changes are seen. Bony Jackson MD (Electronically Signed) Final Date: 13 Jul 2024 12:12 S
== END 2024-07-03 12:27 | disposition home or self-care (01) ==
LOC: RAD 12:28
PROVIDERS: PCP Physician Assistant; Visit Provider Internal Medicine
DX: R06.02 Shortness of breath (principal); R93.1 Abnormal findings on diagnostic imaging of heart and coronary circulation; I34.0 Nonrheumatic mitral (valve) insufficiency; I35.8 Other nonrheumatic aortic valve disorders; I07.1 Rheumatic tricuspid insufficiency
CPT/HCPCS: 93306

== ENCOUNTER → 2024-09-15 09:10 | Outpatient (BNVA) | payer MEDICARE, SELFPAY | PROVIDERS: PCP Physician Assistant; Visit Provider Dermatology | DX: B35.3 Tinea pedis (principal); L73.9 Follicular disorder, unspecified; L82.1 Other seborrheic keratosis; L71.1 Rhinophyma; L71.8 Other rosacea; B35.1 Tinea unguium; L73.8 Other specified follicular disorders; L72.0 Epidermal cyst; L82.0 Inflamed seborrheic keratosis; L57.0 Actinic keratosis | CPT/HCPCS: 17000; 99214 ==

== ENCOUNTER → 2024-10-01 14:16 | Outpatient (BNVA) | payer MEDICARE, SELFPAY | PROVIDERS: PCP Physician Assistant; Visit Provider Podiatrist Foot & Ankle Surgery | DX: M79.672 Pain in left foot (principal); E11.69 Type 2 diabetes mellitus with other specified complication; E78.5 Hyperlipidemia, unspecified; B35.1 Tinea unguium; M21.612 Bunion of left foot; I73.9 Peripheral vascular disease, unspecified | CPT/HCPCS: 11721; 73630; 99203 ==

== ENCOUNTER 2024-11-20 15:05 | Outpatient (CLI) | payer MEDICARE, SELFPAY ==
--- NOTE | 2024-11-20 15:16 | CT_ITS ---
WS: [id number] LDCT LUNG CANCER SCREENING TECHNIQUE: Noncontrast CT of the chest with coronal and sagittal reformatted images. CLINICAL INFORMATION: HX OF NICOTINE DEPENDENCE COMPARISON: None. DLP: 75.41 mGy.cm DIvol: Mean CTDIvol: 1.60 (mGy) All CT scans at [facility] use at least one of these dose optimization techniques: automated exposure control; mA and/or kV adjustment per patient size (includes targeted exams where dose is matched to clinical indication); or iterative reconstruction. FINDINGS: Neck emphysematous changes. Pleural-parenchymal scarring in both lungs. Interstitial thickening in the lung bases. Subsegmental atelectasis in the lung bases and lingula. 3 mm nodule RIGHT lung apex. Tree-in-bud nodularity in the RIGHT upper lobe anteriorly. Pleural-parenchymal scarring in the RIGHT middle lobe. 4 mm nodule LEFT upper lobe subpleural. 7 mm nodule LEFT upper lobe with parenchymal scarring along the mediastinum 12 mm nodule with a focus of marginal calcification superior segment LEFT lower lobe. This is new since 2018. Recommend further evaluation with PET/CT. Enlarged subcarinal LEFT infrahilar and paraesophageal lymph nodes. Distal paraesophageal lymph node measures 13 mm. This also can be further evaluated PET/CT. Sternotomy. CABG. Aortic calcification. Coronary calcification. No axillary lymphadenopathy. Small esophageal hiatal hernia. Adrenal glands are normal. Thoracic kyphosis. Hypertrophic changes thoracic spine. CT/CT lung screening [id number] IMPRESSION: 12 mm slightly irregular nodule with a focus of marginal calcification superior segment LEFT lower lobe. This is new since 2018. Recommend further evaluation with PET/CT. Several enlarged subcarinal, LEFT infrahilar, and distal paraesoph ageal lymph nodes. LUNG-RADS: 4B-Suspicious FOLLOW UP: PET/CT recommended
== END 2024-11-20 15:06 | disposition home or self-care (01) ==
LOC: RAD 15:06
PROVIDERS: PCP Physician Assistant; Visit Provider Physician Assistant
DX: Z87.891 Personal history of nicotine dependence (principal)
CPT/HCPCS: 71271

== ENCOUNTER 2024-11-26 06:00 | Outpatient (CLI) | payer MEDICARE, SELFPAY | END 2024-11-26 06:01 | disposition home or self-care (01) | LOC: RAD 11-27 07:17 | PROVIDERS: PCP Physician Assistant; Visit Provider Physician Assistant | DX: R07.89 Other chest pain (principal); I25.10 Atherosclerotic heart disease of native coronary artery without angina pectoris; E11.69 Type 2 diabetes mellitus with other specified complication; E78.5 Hyperlipidemia, unspecified; Z95.1 Presence of aortocoronary bypass graft; Z98.61 Coronary angioplasty status; Z87.891 Personal history of nicotine dependence | CPT/HCPCS: 99214 ==

== ENCOUNTER 2024-12-12 09:23 | Outpatient (CLI) | payer MEDICARE, SELFPAY ==
--- NOTE | 2024-12-12 09:30 | PETR_ITS ---
PROCEDURE INFORMATION: Exam: PET/CT Skull Base to Mid-thigh Exam date and time: 12/12/2024 10:42 AM Age: 79 years old Clinical indication: Abnormal findings; Left lower pulmonary nodule; Prior surgery; Surgery date: 6+ months; Surgery type: Heart; Additional info: Abnormal findings of lung field LABS AND CLINICAL REPORTS: Glucose: 132 mg/dl Treatment strategy for malignancy (PET staging): Initial Staging (PI) TECHNIQUE: Imaging protocol: Following at least four-hour fasting and following the injection of radiopharmaceutical, low dose CT images were obtained. Then, PET images were obtained. Attenuation corrected images were constructed using the CT scan. Fused images of PET and CT were reviewed. The standardized uptake values (SUV) reported below are maximum values within a region of interest, expressed in gm/ml. Exam includes orbital meatal line to mid-thigh. SUV normalization method: BodyWeight Radiopharmaceutical: 10.74 mCi F-18 FDG (Fluorodeoxyglucose), IV. Time of imaging post radiopharmaceutical administration: 50 minutes Injection site: RIGHT AC COMPARISON: CT lung screening [id number] 11/20/2024 3:27 PM, CT abdomen and pelvis 11/19/2019 FINDINGS: Brain: Visualized brain has normal physiologic uptake. Pharynx: No abnormal uptake. Larynx: No abnormal uptake. Lungs, pleura and trachea: A solid nodule in the superior segment of the left lower lobe measures 1.2 x [address] image 94, SUV max 9.3. Mild pleural thickening in the posteroinferior right lower lobe is present with mild uptake, for example at the posteromedial aspect on CT image 126, SUV max 2.8. Heart: Normal physiologic uptake. Mediastinal space: No abnormal uptake. Diaphragm: A small hiatal hernia is noted. No abnormal uptake. Esophagus: No abnormal uptake. Liver: No abnormal uptake. Gallbladder and biliary ducts: No abnormal uptake. A small stone in the gallbladder is noted. Pancreas: No abnormal uptake. Spleen: No abnormal uptake. Adrenal glands: No abnormal uptake. Kidneys and ureters: Normal physiologic uptake. Stomach and bowel: No abnormal uptake. Postoperative changes of a surgical staple line in the mid transverse colon is noted with evidence of resection of the upstream large bowel. Colonic diverticula are present. Vasculature: No abnormal uptake. Multifocal regions of atherosclerotic calcification are identified. Lymph nodes: Radiotracer avid mediastinal and bilateral hilar lymph nodes are similar in size, SUV max 8.6 in a posterior left hilar/left periesophageal lymph node measuring 1.3 cm in short axis on series 202, image 99. Additional examples: A right hilar lymph node measuring approximately 9 mm in short axis on CT image 96 is present, SUV max 7.3; a precarinal lymph node measuring 7 mm in short axis on CT image 92 demonstrates an SUV max 5.0. An inferior left periesophageal lymph node measuring 1.3 cm in short axis on CT image 130 is radiotracer avid, SUV max 10.1. Radiotracer avid jaclyn hepatis lymph nodes are similar in size, SUV max 9.9 in a lymph node inferior to the caudate lobe of the liver measuring 1.5 cm in short axis on CT image 157. Additional examples: A portacaval lymph node measuring 1.1 cm in short axis on CT image 162 demonstrates an SUV max 8.4. Skeleton: No abnormal uptake in the visualized axial and appendicular skeleton. There are degenerative changes in the spine. Sternotomy wires are identified. Soft tissues: Multifocal regions of muscular uptake are noted without definitive evidence of discrete correlating masses on the CT images, likely physiologic or inflammatory. Example, uptake within the inferior right gluteus minimus muscle demonstrates an SUV max 19.4 on PET image 259 of series 301. A radiotracer avid soft tissue density nodule along the medial aspect of the right parotid gland measures [address] series 202, image 24, SUV max 10.8. Two adjacent soft tissue density nodules along the posteroinferior right parotid gland are noted measuring up to 7 mm in greatest dimension on series 202, image 31, SUV max 11.1. A soft tissue density nodule adjacent to the inferior margin of the left parotid gland measures 1.[address] series 202, image 38, SUV max 15.5. Postoperative changes involving the rectus abdominis muscular sheath in the upper abdomen are noted. METRICS: Mediastinal blood pool: SUV max 2.7, SUV mean 2.3 Liver uptake: SUV max 3.1, SUV mean 2.7 PET/PET skull to thigh INIT [id number] IMPRESSION: 1. Radiotracer avid lymph nodes in the chest and abdomen are present concerning for malignancy. 2. Radiotracer avid soft tissue density nodules or lymph nodes in the region of the bilateral parotid glands are noted. The degree of uptake is concerning for malignancy rather than an inflammatory or benign neoplastic process. 3. A radiotracer avid left lower lobe nodule is identified concerning for malignancy. 4. Mild, likely inflammatory uptake within mild pleural thickening in the right lower lobe. A malignant etiology is less likely. 5. Cholelithiasis. 6. Additional nonurgent findings as detailed above.
== END 2024-12-12 09:24 | disposition home or self-care (01) ==
LOC: RAD 09:26
PROVIDERS: PCP Physician Assistant; Visit Provider Physician Assistant
DX: R91.8 Other nonspecific abnormal finding of lung field (principal); K80.20 Calculus of gallbladder without cholecystitis without obstruction; K44.9 Diaphragmatic hernia without obstruction or gangrene; J92.9 Pleural plaque without asbestos; K91.89 Other postprocedural complications and disorders of digestive system; K57.90 Diverticulosis of intestine, part unspecified, without perforation or abscess without bleeding; I25.84 Coronary atherosclerosis due to calcified coronary lesion; R59.1 Generalized enlarged lymph nodes; Z96.89 Presence of other specified functional implants; R93.7 Abnormal findings on diagnostic imaging of other parts of musculoskeletal system; M79.9 Soft tissue disorder, unspecified; Z48.815 Encounter for surgical aftercare following surgery on the digestive system; R93.89 Abnormal findings on diagnostic imaging of other specified body structures
CPT/HCPCS: 78815; A9552

== ENCOUNTER 2024-12-14 11:11 | Observation (INO) | payer MEDICARE, SELFPAY ==
[2024-12-14] VITALS (11 sets, daily range): BP systolic 109–162; BP diastolic 58–86; PULSE 47–75; RESP 16–23; TEMP 36.4–37; O2SAT 93–98; BMI 29.1
--- NOTE | 2024-12-14 11:14 | ECG_ITS ---
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 Measurements Intervals Newell Rate: 53 P: 20 SD: 219 QRS: -29 QRSD: 121 T: 55 QT: 437 QTc: 412 Interpretive Statements SINUS BRADYCARDIA WITH FIRST DEGREE AV BLOCK BORDERLINE LEFT AXIS DEVIATION [QRS AXIS < -20] RIGHT BUNDLE BRANCH BLOCK [120+ ms QRS DURATION, UPRIGHT V1, 40+ ms S IN I/aVL/V4/V5/V6] Compared to ECG 11/24/2019 10:14:52 First degree AV block now present Right bundle-branch block now present Myocardial infarct finding no longer present Electronically Signed On 12-16-2024 19:29:34 CDT by Haley Sanchez M.D. [email or web address]
--- NOTE | 2024-12-14 11:14 | XRR_ITS ---
PROCEDURE INFORMATION: Exam: XR Chest Exam date and time: 12/14/2024 11:21 AM Age: 79 years old Clinical indication: Dyspnea; Additional info: Weakness TECHNIQUE: Imaging protocol: Radiologic exam of the chest. Views: 1 view. COMPARISON: CT lung screening [id number] 11/20/2024 3:27 PM FINDINGS: Lungs: Left lung base atelectasis/infiltrate. No focal lung consolidation. Pleural spaces: No pleural effusion. No pneumothorax. Heart/Mediastinum: No cardiomegaly. Bones/joints: Median sternotomy. XR/XR chest 1V portable [id number] IMPRESSION: Left lung base atelectasis/infiltrate.
--- OUTSIDE RECORDS SUMMARY | 2024-12-14 11:16 | XMS_ITS | Patient Health Record ---
Author Organization [facility] Address [address] [place] [address] Care Team Providers Care Microbiology Technologist Name Role Phone Talisha Toure Primary Care Provider Alvaro Jarvis [phone] Allergies Allergen (clinical drug ingredient) Drug/Non Drug Allergy documented on EMR Reaction Allergy Type Onset Date Status fenofibrate Tricor Unknown Drug Allergy Activ e Substance with 4-amxgrgh-6-methylglutar yl-coenzyme A reductase inhibitor mechanism of action (substance) Statins Unknown Drug Allergy Active Substance with sulfonamide structure and antibacterial mechanism of action (substance) Sulfa Antibiotics Unknown Drug Allergy Active Reason For Referral No Information Medications Medication SIG (Take, Route, Frequency, Duration) Notes Start Date End Date Status Aspirin 81 81 MG Tablet Delayed Release 1 tablet Orally Once a day Active CoQ-10 Active Melatonin 3 MG Tablet 1 tablet at bedtim e as needed Orally Once a day Active traMADol HCl 50 MG Tablet 1 tablet as needed Orally three times daily; Duration: 14 days Not-Kin ing Symbicort 80-4.5 MCG/ACT Aerosol 2 puffs Inhalation Once a day prn Not-Taking Praluent 75 MG/ML Solution Auto-injector as directed Subcutaneous Active Rosuvastatin Calcium 20 MG Tablet 1 tablet Orally Once a day; Duration: 90 days Not-Takin g Metoprolol Tartrate 25 MG Tablet 1 tablet Orally Twice a day; Duration: 30 Active Ventolin HFA 108 (90 Base) MCG/ACT Aerosol Solution 1 puff as needed Inhalation every 4 hrs Not-Takin g Gabapentin 300 MG Capsule 2 capsules Orally TID; Duration: 30 Active Nitrostat 0.4 MG Tablet Sublingual as directed Sublingual Activ e Vitamin D 25 MCG (1000 UT) Tablet 1 tablet Orally Once a day Active traZODone HCl 100 MG Tablet 1 tablet at bedtime Orally Once a day; Duration: 30 day(s) Active Social History Tobacco Use: Social History Observation Description Date Details (start date - stop date) Former Smoker NA - NA Social History Drugs/Alcohol: Social Info Question Answer Notes Alcohol Screen (Audit-C) Did you have a drink containing alcohol in the past year? No Points 0 Interpretation Negative Drugs Have you used drugs other than those for medical reasons in the past 12 months? No Caffeine Intake: 1-2 cups per day Coffee candido y, occasional tea or soda Household: Social Info Question Answer Notes Household Marital status: Tobacco Use: Social Info Question Answer Notes xTobacco Use/Smoking Are you a former smoker How long has it been since you last smoked? 5-10 years Problems Problem Type SNOMED Code ICD Code Onset Dates Problem Status W/U Status Risk Notes Problem Plantar wart (25956608) Plantar wart (078.12) 2017 Problem resolved confirmed [id number]- Problem Hypocalcemia (2068638) Hypocalcemia (275.41) 2018 Problem resolved confirmed [id number]- Problem Allergic rhinitis caused by pollen (disorder) (45454196) Allergic rhinitis due to pollen (477.0) 2016 Problem resolved confirmed [id number]- Problem Shortness of breath (679102099) Shortness of breath (786.05) 2016 Problem resolved confirmed [id number]- Problem Heartburn (19240978) Heartburn (787.1) 2015 Problem resolved confirmed [id number]- Problem Urinary frequency (655290658) Urinary frequency (788.41) 2014 Problem resolved confirmed [id number]- Problem Vaccine product containing only acellular Bordetella pertussis and Clostridium tetani and Corynebacterium diphtheriae antigens (medicinal product) (885002643) Zemdxchbtc-ogdmrsn-x ertussis, combined [DTP] [DtaP] (V06.1) 2018 Problem resolved confirmed [id number]- Problem Primary insomnia (9569335) Primary insomnia (F51.01) Active confirmed Problem COPD - Chronic obstructive pulmonary disease (10820149) Chronic obstructive pulmonary disease, unspecified COPD type (J44.9) Active confirmed Problem Hyperammonemia (2900622) Hyperammonemia (E72.20) Active confirmed Problem Low back pain (727080780) Low back pain (724.2) 2014 Problem resolved confirmed [id number]- Problem Degenerative disorde r of macula (364397810) Macular degeneration (362.50) 2018 Problem resolved confirmed [id number]- Problem Hypercholesterolemia (50021301) Hypercholesterolemia (272.0) 2017 Problem resolved confirmed [id number]- Problem Lumbosacral spondylosis without myelopathy (11064654) 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 Active confirmed [id number]- Problem Diaphragmatic hernia (52555754) Sliding hiatal hernia (553.3) 2015 Active confirmed [id number]- Problem Onychomycosis caused by dermatophyte (786717080) Toe onychomycosis (110.1) 2017 Problem resolved confirmed [id number]- Problem Allergic rhinitis (33044557) Post nasal drip syndrome (477.9) 2016 Problem resolved confirmed [id number]- Problem Screening for colon cancer (720863544) Screening for colon cancer (V76.49) 2015 Problem resolved confirmed [id number]- Problem Allergic rhinitis caused by pollen (20229706) Allergies (477.0) 2016 Problem resolved confirmed [id number]- Problem Disorder of hematopoietic system (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) Other abnormal findings on blood examination (790.99) 2017 Problem resolved confirmed [id number]- Problem Chest pain (59016408) Chest pain (786.51) 2015 Problem resolved confirmed [id number]- Problem Impaired fasting glycaemia (381424373) Elevated fasting glucose (790.21) 2016 Active confirmed [id number]- Problem Pneumonia and influenza (287072972) Influenza, with pneumonia (487.0) 2016 Problem resolved confirmed [id number]- Problem Insomnia (014688746) Insomnia (307.41) 2014 Problem resolved confirmed [id number]- Problem Tobacco user (367849262) Tobacco abuse affecting health (305.1) 2014 Problem resolved confirmed [id number]- Problem Needs influenza immunization (772677454) Vaccination against other viral diseases, Influenza (V04.81) 2014 Problem resolved confirmed [id number]- Problem Benign prostatic hypertrophy (585077868) BPH (600.00) 2016 Problem resolved confirmed [id number]- Problem Coronary artery disease (07612356) Coronary artery disease (414.01) 2014 Problem resolved confirmed [id number]- Problem Pneumonia caused by Streptococcus (33751423) Bacterial pneumonia, due to Streptococcus, other (482.39) 2015 Problem resolved confirmed [id number]- Problem COPD - Chronic obstructive pulmonary disease (49257240) COPD (496) 2015 Active confirmed [id number]- Problem 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 (607.84) 2014 Problem resolved confirmed [facility]-98 [id number]- Problem Leucoplakia of oral mucosa and tongue (8720089710172) 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 Problem resolved confirmed [facility]-98 [id number]- Problem Coronary arteriosclerosis (disorder) (86829627) Coronary artery disease, of [place] coronary artery (414.01) 2015 Active confirmed [id number]- Problem Essential hypertension (99145286) Essential hypertension (401.1) 2016 Active confirmed [id number]- Problem Impacted cerumen (64887456) External cerumen impaction (380.4) 2017 Problem resolved confirmed [facility]-98 [id number]- Problem Lumbar spondylosis with myelopathy (disorder) (16662321) 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) Active confirmed Plan Of Treatment No Information Insurance Providers Payer Name Payer Address Payer Phone Subscriber Number Group Number Insured Name Patient Relationship to Insured Coverage Start Date Coverage End Date [employer] Medicare Replacement HMO (Self Pay) [address] [place] [address] [id number] [place] Oswald Self - patient is the insured Medical (General) History Medical History History ICD Code Hypertension Hypercholesterolemia Coronary artery disease COPD BPH Lumbar spondylarthritis Osteoarthritis Macular degeneration Sliding hiatal hernia Allergies Insomnia Hx of whooping cough Hx of scarlet fever colon cancer fatty liver splenomegaly confusion Surgical History Surgery Date(Month/Year) Bypass surgery Knee replacement; left 2010 Hernia repair 1999 Coronary artery stent placement; drug-el uting stent x 2 2010 Hospitalization History Reason Date(Month/Year) Knee replacement Hernia repair Bypass surgery Coronary stent placement
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
--- OUTSIDE RECORDS SUMMARY | 2024-12-14 11:16 | XMS_ITS | Patient Health Record ---
Author Organization [facility] Address [address] [place] [address] Care Team Providers Care Cancer Spec Name Role Phone MtzTalisha Primary Care Provider Unavailabl e Allergies Allergen (clinical drug ingredient) Drug/Non Drug Allergy documented on EMR Reaction Allergy Type Onset Date Status fenofibrate Tricor Unknown Drug Allergy Activ e Substance with 5-uwbpgxe-9-methylglutar yl-coenzyme A reductase inhibitor mechanism of action (substance) Statins Unknown Drug Allergy Active Substance with sulfonamide structure and antibacterial mechanism of action (substance) Sulfa Antibiotics Unknown Drug Allergy Active Reason For Referral No Information Medications Medication SIG (Take, Route, Frequency, Duration) Notes Start Date End Date Status CoQ-10 *Pick strength-form from [employer] for eRX* Active Ventolin HFA 108 (90 Base) MCG/ACT 1 puff as needed Inhalation every 4 hrs Not-Taking traZODone HCl 100 MG 1 tablet at bedtime Orally Once a day; Duration: 30 day(s) Active Aspirin 81 81 MG 1 tablet Orally Once a day *Pick strength-form from [employer] for eRX* Active Melatonin 3 MG 1 tablet at bedtime as needed Orally Once a day Active Vitamin D 25 MCG (1000 UT) 1 tablet Orally Once a day Active Gabapentin 300 MG 2 capsules Orally TID; Duration: 30 Active Nitrostat 0.4 MG as directed Sublingual Active Metoprolol Tartrate 25 MG 1 tablet Orally Twice a day; Duration: 30 Active Praluent 75 MG/ML as directed Subcutaneous Active Symbicort 80-4.5 MCG/ACT 2 puffs Inhalation Once a day prn Not-Taking traMADol HCl 50 MG 1 tablet as needed Orally three times daily; Duration: 14 days Not-Taking Rosuvastatin Calcium 20 MG 1 tablet Orally Once a day; Duration: 90 days Not-Taking Problems Problem Type SNOMED Code ICD Code Onset Dates Problem Status W/U Status Risk Notes Problem Primary insomnia (6951403) Primary insomnia (F51.01) Active confirmed Problem COPD - Chronic obstructive pulmonary disease (46403051) Chronic obstructive pulmonary disease, unspecified COPD type (J44.9) Active confirmed Problem Hyperammonemia (8904456) Hyperammonemia (E72.20) Active confirmed Problem Lumbar spondylosis with myelopathy (disorder) (94836709) 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) Active confirmed Problem COPD - Chronic obstructive pulmonary disease (16533167) COPD (496) 2015 Active confirmed [id number]- Problem Diaphragmatic hernia (54746848) Sliding hiatal hernia (553.3) 2015 Active confirmed [id number]- Problem Impaired fasting glycaemia (402518994) Elevated fasting glucose (790.21) 2016 Active confirmed [id number]- Problem Lumbosacral spondylosis without myelopathy (61491670) 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 Active confirmed [id number]- Problem Coronary arteriosclerosis (disorder) (30678292) Coronary artery disease, of [place] coronary artery (414.01) 2015 Active confirmed [facility][id number]- Problem Essential hypertension (04946917) Essential hypertension (401.1) 2016 Active confirmed [facility][id number] [id number]- Problem Plantar wart (24067410) Plantar wart (078.12) 2017 Problem resolved confirmed [facility][id number] [id number]- Problem Hypocalcemia (6041932) Hypocalcemia (275.41) 2018 Problem resolved confirmed [facility][id number] [id number]- Problem Allergic rhinitis caused by pollen (disorder) (24400734) Allergic rhinitis due to pollen (477.0) 2016 Problem resolved confirmed [facility][id number] [id number]- Problem Shortness of breath (716328170) Shortness of breath (786.05) 2016 Problem resolved confirmed [facility][id number] [id number]- Problem Heartburn (29778954) Heartburn (787.1) 2015 Problem resolved confirmed [facility]98 [id number]- Problem Urinary frequency (570712194) Urinary frequency (788.41) 2014 Problem resolved confirmed [facility]98 [id number]- Problem Vaccine product containing only acellular Bordetella pertussis and Clostridium tetani and Corynebacterium diphtheriae antigens (medicinal product) (793894514) Axlfcxiene-ccglnrk-f ertussis, combined [DTP] [DtaP] (V06.1) 2018 Problem resolved confirmed [facility][id number]- Problem Chest pain (02445139) Chest pain (786.51) 2015 Problem resolved confirmed [facility][id number]- Problem Pneumonia and influenza (394464110) Influenza, with pneumonia (487.0) 2016 Problem resolved confirmed [facility][id number] [id number]- Problem Insomnia (949079924) Insomnia (307.41) 2014 Problem resolved confirmed [facility][id number]- Problem Onychomycosis caused by dermatophyte (039380861) Toe onychomycosis (110.1) 2017 Problem resolved confirmed [facility][id number]- Problem Allergic rhinitis (25809106) Post nasal drip syndrome (477.9) 2016 Problem resolved confirmed [facility][id number]- Problem 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 (607.84) 2014 Problem resolved confirmed [facility][id number] 5911- Problem History of multiple allergies (situation) (350309806) Allergies (477.0) 2016 Problem resolved confirmed [facility]98 5911- Problem Screening for colon cancer (979589696) Screening for colon cancer (V76.49) 2015 Problem resolved confirmed [facility]98 [id number]- Problem Hypercholesterolemia (47204242) Hypercholesterolemia (272.0) 2017 Problem resolved confirmed [facility]98 [id number]- Problem Disorder of hematopoietic system (17650952) Other abnormal findings on blood examination (790.99) 2017 Problem resolved confirmed [facility][id number] [id number]- Problem Leucoplakia of oral mucosa and tongue (0919926393360) 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 Problem resolved confirmed [facility]98 [id number]- Problem Tobacco user (438392808) Tobacco abuse affecting health (305.1) 2014 Problem resolved confirmed [facility]98 [id number]- Problem Needs influenza immunization (369309940) Vaccination against other viral diseases, Influenza (V04.81) 2014 Problem resolved confirmed [facility]98 [id number]- Problem Coronary artery disease (69301693) Coronary artery disease (414.01) 2014 Problem resolved confirmed [facility][id number]- Problem Impacted cerumen (46349405) External cerumen impaction (380.4) 2017 Problem resolved confirmed [facility]98 [id number]- Problem Benign prostatic hypertrophy (855893101) BPH (600.00) 2016 Problem resolved confirmed [facility][id number]- Problem Pneumonia caused by Streptococcus (43214410) Bacterial pneumonia, due to Streptococcus, other (482.39) 2015 Problem resolved confirmed [facility][id number] 5911- Problem Low back pain (817733297) Low back pain (724.2) 2014 Problem resolved confirmed [facility][id number]- Problem Age-related macular degeneration (disorder) (264378553) Macular degeneration (362.50) 2018 Problem resolved confirmed [facility]98 [id number]- Plan Of Treatment No Information Insurance Providers Payer Name Payer Address Payer Phone Subscriber Number Group Number Insured Name Patient Relationship to Insured Coverage Start Date Coverage End Date [employer] Medicare Replacemen t [address] [place], [place] [id number] [place] Oswald Self - patient is the insured Medical (General) History Medical History History ICD Code Hypertension Hypercholesterolemia Coronary artery disease COPD BPH Lumbar spondylarthritis Osteoarthritis Macular degeneration Sliding hiatal hernia Allergies Insomnia Hx of whooping cough Hx of scarlet fever colon cancer fatty liver splenomegaly confusion Surgical History Surgery Date(Month/Year) Coronary artery stent placement; drug-el uting stent x 2 2010 Hernia repair 1999 Knee replacement; left 2009 Bypass surgery Hospitalization History Reason Date(Month/Year) Knee replacement Hernia repair Bypass surgery Coronary stent placement
--- NOTE | 2024-12-14 11:17 | W.ED.WEAKNES ---
HPI - Weakness General: Chief complaint: Weakness Stated complaint: Low bp slurred speech Time Seen by Provider: 12/14/24 11:12 History of Present Illness: 79-year-old man with a history of colon cancer, pulmonary nodules, COPD, hyperlipidemia and coronary artery disease who presents to the emergency room with low blood pressure associated with slurred speech. This morning he said his pressure was in the 80s and lower than that prior systolic. Jordana states his speech became kind of slurred. No focal motor deficits and he seems improved now. He has some chronic cough. No chest pain. No abdominal pain. No nausea or vomiting. He says he was feeling okay. They also state last week they had gone to [place] because he was hypertensive and they thought it had something to do with his COPD his family states. He also had a recent PET scan which they have not gotten results from yet. He had had a CT done in October that showed a 12 mm irregular nodule that was new since 2018 and this was the reason for a PET scan. Related Data Home Medications ?Medication ?Instructions ?Recorded ?Confirmed aspirin 81 mg tablet,delayed 81 mg PO DAILY 07/28/19 11/26/24 release (Adult Low Dose Aspirin) coenzyme Q10 200 mg capsule (Co 200 mg PO DAILY 07/28/19 11/26/24 Q-10) trazodone 50 mg tablet 50 mg PO DAILY 07/28/19 11/26/24 metoprolol tartrate 25 mg tablet 12.5 mg PO DAILY 12/21/21 11/26/24 gabapentin 300 mg capsule 300 mg PO TID 05/26/24 11/26/24 Previous Rx's ?Medication ?Instructions ?Recorded nitroglycerin 0.4 mg sublingual 0.4 mg sublingual Q5M PRN Pain, 11/09/21 tablet (Nitrostat) Mild #25 tabs evolocumab 140 mg/mL subcutaneous 140 mg SUBCUT .Q2WEEK #2 mL 11/26/24 pen injector (Repatha [employer]) Allergies Allergy/AdvReac Type Severity Reaction Status Date / Time Sulfa (Sulfonamide Allergy Unknown Unknown Verified 11/26/24 12:36 Antibiotics) Review of Systems Narrative: Constitutional symptoms: Negative except as documented in HPI. Skin symptoms: Negative except as documented in HPI. Eye symptoms: Negative except as documented in HPI. ENMT symptoms: Negative except as documented in HPI. Respiratory symptoms: Negative except as documented in HPI. Cardiovascular symptoms: Negative except as documented in HPI. Gastrointestinal symptoms: Negative except as documented in HPI. Genitourinary symptoms: Negative except as documented in HPI. Musculoskeletal symptoms: Negative except as documented in HPI. Neurologic symptoms: Negative except as documented in HPI. Psychiatric symptoms: Negative except as documented in HPI. Endocrine symptoms: Negative except as documented in HPI. 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 COPD (chronic obstructive pulmonary disease) History of scarlet fever GERD (gastroesophageal reflux disease) Hyperlipidemia associated with type 2 diabetes mellitus Coronary artery disease Surgical History S/P right hemicolectomy (11/24/19) Status post colonoscopy with polypectomy (10/21/20) 11/11/19 S/P CABG x 3 Status post right inguinal hernia repair S/P PTCA (percutaneous transluminal coronary angioplasty) 2010 X2 S/P wrist surgery Left S/P knee replacement Left S/P CABG (coronary artery bypass graft) Family History Sister Cancer breast Mother Hypercholesterolemia Myocardial infarction Father Myocardial infarction Diabetes Denies family history of Anesthesia complication Bleeding disorder Social History Smoking and tobacco/nicotine status: former use of tobacco/nicotine Alcohol intake: never Substance/Drug Use: never Household members: spouse Marital status: Current occupational status: retired Physical Exam Narrative: EXAM NARRATIVE: General: Alert, no acute distress. Skin: Warm, dry. Head: Normocephalic, atraumatic. Neck: Supple, trachea midline. Eye: Extraocular movements are intact. Ears, nose, mouth and throat: mucosa moist. Cardiovascular: Regular, Normal peripheral perfusion. Respiratory: Lungs are clear to auscultation, respirations are non-labored, breath sounds are equal, Symmetrical chest wall expansion. Gastrointestinal: Soft, Nontender, Non distended Musculoskeletal: Normal ROM, no deformity. Neurological: Alert and oriented, No focal neurological deficit observed. Psychiatric: Cooperative, appropriate mood & affect. Course Vital Signs: Vital signs: Vital Signs Temperature 97.6 F 12/14/24 11:13 Pulse Rate 55 L 12/14/24 11:13 Respiratory Rate 16 12/14/24 11:13 Blood Pressure 109/58 12/14/24 11:13 Pulse Oximetry 94 12/14/24 11:13 Oxygen Delivery Me thod Room Air 12/14/24 11:13 MDM - Weakness Medical Decision Making Medical decision making: Differential diagnosis for patient presenting with generalized weakness including but not limited to and based on the above HPI, review of systems and physical exam: Sepsis. Dehydration. Renal failure. Electrolyte abnormalities. Anemia. Congestive heart failure. Hypotension. Coronary syndrome. Hepatitis. Cirrhosis. Infections such as pneumonia, urinary tract infection, [place]ne illness, Cellulitis, Viral infections including influenza and Covid-19. Workup: labwork and lab/exam driven imaging ordered to evaluate, rule in and rule out above pathologies. Chest x-ray: Left lower lobe infiltrate. Patient has had symptoms consistent with a pneumonia. This was reviewed and interpreted by myself the emergency room physician. I also reviewed the radiology report. Lab Review: Laboratory results were reviewed and interpreted by myself the emergency room physician. No leukocytosis. No anemia. I reviewed the patient's medical record. 79-year-old man with a history of colon cancer, pulmonary nodules, COPD, hyperlipidemia and coronary artery disease. Recent PET scan has not been read. Look for CT scan from 11/20/2024 that did show a 13 mm irregular nodule that was suspicious. Reexamination: Pressure did come up some with fluids. Patient has no altered mental status. We did discuss that he has had a worsening cough. Appears to have a pneumonia in the area where that nodule was. Given his elevated lactate and low blood pressures going to admit on IV antibiotics and treat as if he septic Consultation: I spoke with Dr. Patel who is on-call for the hospital service who agrees to admission. Assessment and plan: Pneumonia Hypotension Sepsis/SIRS Metabolic encephalopathy -2.5 L normal saline bolus. Fluid volumes based on ideal body weight. -Broad-spectrum antibiotics were administered. Antibiotics and full sepsis fluid bolus were ordered at 1330 when x-ray read did show a pneumonia. First bolus of fluids had already been ordered. -Sepsis quality measures. -Lactic acid with a reflex was ordered. -Blood cultures were ordered. ?I reevaluated the patient's volume status after sepsis fluids were given. -I discussed the patient with the hospitalist on-call who is admitting the patient. - Discussed findings and plan with patient. Answered any questions. - All laboratory values were reviewed and interpreted personally by myself, the ER physician - All imaging was reviewed and interpreted personally by myself, the ER physician. - Evaluation and treatment of this problem were appropriate in the emergency setting Critical Care: -I spent a total of 39 minutes of critical care time managing the patient, independent of any other practitioner. -The time involved in the performance of separately reportable procedures was not counted towards critical care time. Lab Data 12/14/24 11:25 12/14/24 11:25 Radiology Impressions Chest X-Ray 12/14/24 11:14 IMPRESSION: Left lung base atelectasis/infiltrate. Laboratory Results WBC 5.84 10^3/uL (3.29-11.43) 12/14/24 11: RBC 4.87 10^6/uL (3.85-5.65) 12/14/24 11:25 Hgb 14.40 g/dL (11.27-16.99) 12/14/24 11:25 Hct 44.0 % (37-53) 12/14/24 11:25 MCV 90.3 fl (82-101) 12/14/24 11:25 MCH 29.6 pg (27-33) 12/14/24 11:25 MCHC 32.7 g/dL (30-55) 12/14/24 11:25 RDW 12.6 % (12.1-15.1) 12/14/24 11:25 Plt Count 171 10^3/cmm (157-399) 12/14/24 11:25 MPV 9.9 fL (7.4-10.4) 12/14/24 11:25 Neut % (Auto) 62.5 % 12/14/24 11:25 Lymph % (Auto) 24.7 % 12/14/24 11:25 [place] % (Auto) 7.0 % 12/14/24 11:25 Eos % (Auto) 5.3 % 12/14/24 11:25 Baso % (Auto) 0.3 % 12/14/24 11:25 Neut # (Auto) 3.65 10^3/uL (1.8-7.7) 12/14/24 11:25 Lymph # (Auto) 1.4 10^3/uL (0.8-4.8) 12/14/24 11:25 [place] # (Auto) 0.4 10^3/uL (0.2-0.9) 12/14/24 11:25 Eos # (Auto) 0.3 10^3/uL (0.0-0.8) 12/14/24 11:25 Baso # (Auto) 0.0 10^3/uL (0.0-0.1) 12/14/24 11:25 Nucleated RBC % (auto) 0 % 12/14/24 11:25 Nucleated RBCs # 0.0 /100WBC 12/14/24 11:25 Sodium 137 mmol/L (136-145) 12/14/24 11:25 Potassium 5.0 mmol/L (3.5-5.1) 12/14/24 11:25 Chloride 100 mmol/L (98-107) 12/14/24 11:25 Carbon Dioxide 24 mmol/L (22-29) 12/14/24 11:25 Anion Gap 18.0 (5-19) 12/14/24 11:25 BUN 17 mg/dL (8-23) 12/14/24 11:25 Creatinine 0.9 mg/dL (0.7-1.2) 12/14/24 11:25 GFR Calculation Not Reportable 12/14/24 11:25 Glucose 176 mg/dL (65-115) H 12/14/24 11:25 Calculated Osmolality 290 mOsm/kg (285-295) 12/14/24 11:25 Lactic Acid 3.1 mmol/L (0.5-2.2) H 12/14/24 11:25 Lactic Acid (Sepsis) 1.9 mmol/L (0.5-2.2) 12/14/24 13:00 Calcium 10.0 mg/dL (8.5-10.5) 12/14/24 11:25 Total Bilirubin 0.3 mg/dL (0.15-1.2) 12/14/24 11:25 AST 33 U/L (0-40) 12/14/24 11:25 ALT 38 U/L (0-41) 12/14/24 11:25 Alkaline Phosphatase 52 U/L (40-130) 12/14/24 11:25 Troponin T Baseline 10 ng/L (0-15) 12/14/24 11:25 C-Reactive Protein 7.3 mg/L (0.0-4.9) H 12/14/24 11:25 Total Protein 7.2 g/dL (6.6-8.7) 12/14/24 11:25 Albumin 4.1 g/dL (3.5-5.2) 12/14/24 11:25 Globulin 3.1 g/dL (1.3-4.6) 12/14/24 11:25 Urine Color Dark yellow (Yellow) A 12/14/24 11:50 Urine Appearance Clear (CLEAR) 12/14/24 11:50 Urine pH 6.0 (5-7) 12/14/24 11:50 Ur Specific [place] 1.019 (1.005-1.030) 12/14/24 11:50 Urine Protein Negative (Negative) 12/14/24 11:50 Urine Glucose (UA) Negative (Normal) 12/14/24 11:50 Urine Ketones Trace (Negative) 12/14/24 11:50 Urine Blood Negative (Negative) 12/14/24 11:50 Urine Nitrate Negative (Negative) 12/14/24 11:50 Urine Bilirubin 1+ (Negative) H 12/14/24 11:50 Urine Urobilinogen 1.0 mg/dL (Negative) 12/14/24 11:50 Ur Leukocyte Esterase Negative (Negative) 12/14/24 11:50 Urine RBC 0-4 /hpf (0-2) H 12/14/24 11:50 Urine WBC 0-4 /hpf (0-5) H 12/14/24 11:50 Ur Squamous Epith Cells 0-4 /hpf (0-5) H 12/14/24 11:50 Amorphous Sediment Not Reportable 12/14/24 11:50 Urine Bacteria Trace /hpf (NONE) 12/14/24 11:50 Hyaline Casts 0-4 /lpf H 12/14/24 11:50 Urine Mucus Trace /hpf 12/14/24 11:50 Influenza A (PCR) Negative (Negative) 12/14/24 11:40 Influenza Type B (PCR) Negative (Negative) 12/14/24 11:40 RSV (PCR) Negative (Negative) 12/14/24 11:40 SARS-CoV-2 (PCR) Negative (Negative) 12/14/24 11:40 All radiology interpretation(s) finalized by discharge Discharge Plan Discharge Patient Disposition: Admitted As Inpatient Clinical Impression: Pneumonia, Sepsis, Encephalopathy, Hypotension Condition: Stable Coding Level of Care Code ED Shuttle Driver for Olena Gamboa
[2024-12-14 11:45] LABS: Hematocrit 44.0 % (37-53); Hemoglobin 14.40 g/dL (11.27-16.99); Mean Corpuscular HGB Conc 32.7 g/dL (30-55); Mean Corpuscular Hemoglobin 29.6 pg (27-33); Mean Corpuscular Volume 90.3 fl (82-101); Nucleated Red Blood Cells % 0 %; Platelet Count 171 10^3/cmm (157-399); Red Blood Count 4.87 10^6/uL (3.85-5.65); White Blood Count 5.84 10^3/uL (3.29-11.43)
[2024-12-14 12:02] LABS: Lactic Sepsis W/Reflex 3.1 mmol/L (0.5-2.2)
[2024-12-14 12:03] LABS: Alanine Aminotransferase 38 U/L (0-41); Albumin Level 4.1 g/dL (3.5-5.2); Alkaline Phosphatase 52 U/L (40-130); Blood Urea Nitrogen 17 mg/dL (8-23); Calcium 10.0 mg/dL (8.5-10.5); Carbon Dioxide 24 mmol/L (22-29); Chloride 100 mmol/L (98-107); Creatinine Clr Calc Pharmacy 83.1919; Globulin 3.1 g/dL (1.3-4.6); Glucose 176 mg/dL (65-115); Osmolality Calculated 290 mOsm/kg (285-295); Reflex Lactate Order REFLEX LACTIC ORDERD; Sodium 137 mmol/L (136-145); Total Protein 7.2 g/dL (6.6-8.7)
[2024-12-14 12:04] LABS: Anion Gap 18.0 (5-19); Aspartate Amino Transferase 33 U/L (0-40); Potassium 5.0 mmol/L (3.5-5.1); Troponin(5th) Baseline 10 ng/L (0-15)
[2024-12-14 12:04] LABS: Glucose Urine UA Negative (Normal); Nitrate Urine Negative (Negative); Specific Gravity, Urine 1.019 (1.005-1.030)
[2024-12-14 12:26] LABS: Respiratory Syncytial Virus Ce NEGATIVE (Negative); SARS-CoV-2 PCR NEGATIVE (Negative)
[2024-12-14 13:41] LABS: Lactic Acid level (Lactate) 1.9 mmol/L (0.5-2.2)
[2024-12-14 13:47] LABS: Troponin 5 2HR 8.14 ng/L (0-15); Troponin 5 2HR Delta -1.86 ABS# (0-10)
[2024-12-14] MEDS: cefTRIAXone 1,000 mg SDV 1000 MG IVP (14:05)
--- NOTE | 2024-12-14 14:35 | CTR_ITS ---
PROCEDURE INFORMATION: Exam: CT Head Without Contrast Exam date and time: 12/14/2024 2:55 PM Age: 79 years old Clinical indication: Altered mental status/memory loss; Confusion or disorientation; Additional info: AMS TECHNIQUE: Imaging protocol: Computed tomography of the head without contrast. Radiation optimization: All CT scans at this facility use at least one of these dose optimization techniques: automated exposure control; mA and/or kV adjustment per patient size (includes targeted exams where dose is matched to clinical indication); or iterative reconstruction. COMPARISON: None RADIATION DOSE METRICS: Total DLP (mGy-cm): 1033.58 FINDINGS: Brain: No acute intracranial hemorrhage. No confluent lobar infarct. No mass effect. Cerebral ventricles: The ventricles and sulci are prominent in size compatible with moderate atrophy. Paranasal sinuses: No fluid levels. Mastoid air cells: Visualized mastoid air cells are well aerated. Bones: No acute calvarial fracture. Soft tissues: Air density is noted within the fraud prevention analyst spaces and may be related to venous injection. Recommend clinical correlation. CT/CT head wo con* [id number] IMPRESSION: No acute intracranial abnormality. If symptoms persist, consider further evaluation with MRI, if there are no contraindications to obtaining a MRI scan.
--- NOTE | 2024-12-14 14:35 | USR_ITS ---
PROCEDURE INFORMATION: Exam: US Duplex Bilateral Extracranial Arteries; Complete; Carotid Arteries Exam date and time: 12/14/2024 4:43 PM Age: 79 years old Clinical indication: Altered mental status/memory loss; Additional info: AMS TECHNIQUE: Imaging protocol: Real-time duplex ultrasound scan of the bilateral extracranial arteries combining isabel scale, color Doppler and spectral waveform analysis with image documentation. Complete exam. Exam focused on the carotid arteries. COMPARISON: PT PET skull to thigh INIT [id number] 12/12/2024 10:42 AM FINDINGS: Right common carotid artery: Unremarkable. No occlusion or stenosis. Waveforms are normal. Right internal carotid artery: Unremarkable. No occlusion or stenosis. Waveforms are normal. Right ICA/CCA ratio: Within normal limits. Right external carotid artery: No stenosis in the origin. Right vertebral artery: Unremarkable. Antegrade flow. Left common carotid artery: Unremarkable. No occlusion or stenosis. Waveforms are normal. Left internal carotid artery: Unremarkable. No occlusion or stenosis. Waveforms are normal. Left ICA/CCA ratio: Within normal limits. Left external carotid artery: No stenosis in the origin. Left vertebral artery: Unremarkable. Antegrade flow. US/CV carotid duplex BI* [id number] IMPRESSION: No carotid arterial stenosis. REFERENCES: SRU CRITERIA. The degree of internal carotid artery stenosis is based on criteria defined by the Society of Radiologists in Ultrasound (SRU). Normal is no stenosis. Mild is less than 50% stenosis. Moderate is 50-69% stenosis. Severe is greater than 69% stenosis to near occlusion. Near occlusion is a markedly narrowed lumen. Total occlusion is no detectable patent lumen. Michele Miranda, et al. Carotid Artery Stenosis: Isabel-Scale and Doppler US Diagnosis-Society of Radiologists in Ultrasound Consensus Conference. Radiology 2003; 229:340-346.
--- NOTE | 2024-12-14 14:35 | USCV_ITS ---
Cliff Oswald Age: 79 Gender: M : 1945 Exam Date: 12/14/2024 17:18 Ordering Phys: Mathieu Patel MD Technologist: Jerry Gillis Exam Location: [facility] [place] Indication: presyncope BP: 155 / 75 HR: 50 Rhythm: Sinus Technical Quality: Adequate MEASUREMENTS (Male / Female) Normal Values 2D ECHO LV Diastolic Diameter PLAX 5.2 cm 4.2 - 5.9 / 3.9 - 5.3 cm IVS Diastolic Thickness 0.9 cm 0.6 - 1.0 / 0.6 - 0.9 cm IVS Systolic Thickness 1.4 cm LVPW Systolic Thickness 2.0 cm LVOT Diameter 2.0 cm LV Ejection Fraction 2D Teich 66.5 % LV Ejection Fraction MOD 4C 55.0 % LV Ejection Fraction MOD 2C 58.2 % LV Ejection Fraction 2C AL 58.4 % LA Diameter 3.6 cm RA Systolic Volume 4C AL 52.8 ml RA Systolic Volume 4C MOD 51.7 ml Aorta at Sinotubular Diameter 2.3 cm M-MODE LA Ao Ratio MM 1.5 AV Cusp Separation MM 2.0 cm DOPPLER AV Peak Velocity 133.0 cm/s LVOT Peak Velocity 129.0 cm/s AV Area Cont Eq vti 3.2 cm squared AV Area Cont Eq pk 3.0 cm squared MV Peak Velocity 122.0 cm/s MV Area PHT 3.1 cm squared Mitral E to A Ratio 1.1 TV Peak Velocity 226.7 cm/s TR Peak Velocity 237.0 cm/s TR Peak Gradient 22.5 mmHg TR Mean Velocity 190.0 cm/s TR Mean Gradient 14.8 mmHg TR Velocity Time Integral 71.2 cm PV Peak Velocity 114.0 cm/s RV Ejection Time 0.3 s FINDINGS Left Ventricle Normal left ventricular size, systolic function and wall thickness with no regional wall motion abnormality. Left ventricular ejection fraction is 55%. Normal left ventricular diastolic function. Right Ventricle Normal right ventricular size and systolic function. Right Atrium Normal right atrial size. Left Atrium Normal left atrial size. IA Septum Normal appearance of the interatrial septum. Mitral Valve Normal mitral valve structure. No mitral valve stenosis. Mild mitral valve regurgitation. Aortic Valve Normal aortic valve structure. No aortic valve stenosis or regurgitation. Tricuspid Valve Normal tricuspid valve structure. No tricuspid valve stenosis or regurgitation. Normal pulmonary pressure. Pulmonic Valve Normal pulmonic valve structure. No pulmonic valve stenosis or regurgitation. Pericardium No pericardial effusion. Aorta Normal diameter of the aortic root and ascending thoracic aorta. IVC Normal inferior vena cava. CONCLUSIONS Normal left ventricular size, systolic function and wall thickness with ejection fraction of 55%. Normal right ventricular size and systolic function. Mild mitral valve regurgitation. Alberto Garcia MD, FACC (Electronically Signed) Final Date: 14 December 2024 23:37 S
--- NOTE | 2024-12-14 14:36 | W.ED.WEAKNES ---
HPI - Weakness General: Chief complaint: Weakness Stated complaint: Low bp slurred speech Time Seen by Provider: 12/14/24 11:12 Related Data Home Medications ?Medication ?Instructions ?Recorded ?Confirmed aspirin 81 mg tablet,delayed 81 mg PO DAILY 07/28/19 11/26/24 release (Adult Low Dose Aspirin) coenzyme Q10 200 mg capsule (Co 200 mg PO DAILY 07/28/19 11/26/24 Q-10) trazodone 50 mg tablet 50 mg PO DAILY 07/28/19 11/26/24 metoprolol tartrate 25 mg tablet 12.5 mg PO DAILY 12/21/21 11/26/24 gabapentin 300 mg capsule 300 mg PO TID 05/26/24 11/26/24 Previous Rx's ?Medication ?Instructions ?Recorded nitroglycerin 0.4 mg sublingual 0.4 mg sublingual Q5M PRN Pain, 11/09/21 tablet (Nitrostat) Mild #25 tabs evolocumab 140 mg/mL subcutaneous 140 mg SUBCUT .Q2WEEK #2 mL 11/26/24 pen injector (Repatha [employer]) Allergies Allergy/AdvReac Type Severity Reaction Status Date / Time Sulfa (Sulfonamide Allergy Unknown Unknown Verified 11/26/24 12:36 Antibiotics) 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 COPD (chronic obstructive pulmonary disease) History of scarlet fever GERD (gastroesophageal reflux disease) Hyperlipidemia associated with type 2 diabetes mellitus Coronary artery disease Surgical History S/P right hemicolectomy (11/24/19) Status post colonoscopy with polypectomy (10/21/20) 11/11/19 S/P CABG x 3 Status post right inguinal hernia repair S/P PTCA (percutaneous transluminal coronary angioplasty) 2010 X2 S/P wrist surgery Left S/P knee replacement Left S/P CABG (coronary artery bypass graft) Family History Sister Cancer breast Mother Hypercholesterolemia Myocardial infarction Father Myocardial infarction Diabetes Denies family history of Anesthesia complication Bleeding disorder Social History (Reviewed 11/26/24 @ 13:11 by Prateek Salazar Smoking and tobacco/nicotine status: former use of tobacco/nicotine Alcohol intake: never Substance/Drug Use: never Household members: spouse Marital status: Current occupational status: retired Course Vital Signs: Vital signs: Vital Signs Temperature 97.6 F 12/14/24 11:13 Pulse Rate 55 L 12/14/24 11:13 Respiratory Rate 16 12/14/24 11:13 Blood Pressure 109/58 12/14/24 11:13 Pulse Oximetry 94 12/14/24 11:13 Oxygen Delivery Me thod Room Air 12/14/24 11:13 MDM - Weakness Lab Data 12/14/24 11:25 12/14/24 11:25 Radiology Impressions Chest X-Ray 12/14/24 11:14 IMPRESSION: Left lung base atelectasis/infiltrate. Laboratory Results WBC 5.84 10^3/uL (3.29-11.43) 12/14/24 11:25 RBC 4.87 10^6/uL (3.85-5.65) 12/14/24 11:25 Hgb 14.40 g/dL (11.27-16.99) 12/14/24 11:25 Hct 44.0 % (37-53) 12/14/24 11:25 MCV 90.3 fl (82-101) 12/14/24 11:25 MCH 29.6 pg (27-33) 12/14/24 11:25 MCHC 32.7 g/dL (30-55) 12/14/24 11:25 RDW 12.6 % (12.1-15.1) 12/14/24 11:25 Plt Count 171 10^3/cmm (157-399) 12/14/24 11:25 MPV 9.9 fL (7.4-10.4) 12/14/24 11:25 Neut % (Auto) 62.5 % 12/14/24 11:25 Lymph % (Auto) 24.7 % 12/14/24 11:25 [place] % (Auto) 7.0 % 12/14/24 11:25 Eos % (Auto) 5.3 % 12/14/24 11:25 Baso % (Auto) 0.3 % 12/14/24 11:25 Neut # (Auto) 3.65 10^3/uL (1.8-7.7) 12/14/24 11:25 Lymph # (Auto) 1.4 10^3/uL (0.8-4.8) 12/14/24 11:25 [place] # (Auto) 0.4 10^3/uL (0.2-0.9) 12/14/24 11:25 Eos # (Auto) 0.3 10^3/uL (0.0-0.8) 12/14/24 11:25 Baso # (Auto) 0.0 10^3/uL (0.0-0.1) 12/14/24 11:25 Nucleated RBC % (auto) 0 % 12/14/24 11:25 Nucleated RBCs # 0.0 /100WBC 12/14/24 11:25 Sodium 137 mmol/L (136-145) 12/14/24 11:25 Potassium 5.0 mmol/L (3.5-5.1) 12/14/24 11:25 Chloride 100 mmol/L (98-107) 12/14/24 11:25 Carbon Dioxide 24 mmol/L (22-29) 12/14/24 11:25 Anion Gap 18.0 (5-19) 12/14/24 11:25 BUN 17 mg/dL (8-23) 12/14/24 11:25 Creatinine 0.9 mg/dL (0.7-1.2) 12/14/24 11:25 GFR Calculation Not Reportable 12/14/24 11:25 Glucose 176 mg/dL (65-115) H 12/14/24 11:25 Calculated Osmolality 290 mOsm/kg (285-295) 12/14/24 11:25 Lactic Acid 3.1 mmol/L (0.5-2.2) H 12/14/24 11:25 Lactic Acid (Sepsis) 1.9 mmol/L (0.5-2.2) 12/14/24 13:00 Calcium 10.0 mg/dL (8.5-10.5) 12/14/24 11:25 Total Bilirubin 0.3 mg/dL (0.15-1.2) 12/14/24 11:25 AST 33 U/L (0-40) 12/14/24 11:25 ALT 38 U/L (0-41) 12/14/24 11:25 Alkaline Phosphatase 52 U/L (40-130) 12/14/24 11:25 Troponin T Baseline 10 ng/L (0-15) 12/14/24 11:25 Troponin T 120 Minute 8.14 ng/L (0-15) 12/14/24 13:00 Delta Troponin T -1.86 ABS# (0-10) L 12/14/24 13:00 C-Reactive Protein 7.3 mg/L (0.0-4.9) H 12/14/24 11:25 Total Protein 7.2 g/dL (6.6-8.7) 12/14/24 11: Albumin 4.1 g/dL (3.5-5.2) 12/14/24 11: Globulin 3.1 g/dL (1.3-4.6) 12/14/24 11:25 Urine Color Dark yellow (Yellow) A 12/14/24 11:50 Urine Appearance Clear (CLEAR) 12/14/24 11:50 Urine pH 6.0 (5-7) 12/14/24 11:50 Ur Specific [place] 1.019 (1.005-1.030) 12/14/24 11:50 Urine Protein Negative (Negative) 12/14/24 11:50 Urine Glucose (UA) Negative (Normal) 12/14/24 11:50 Urine Ketones Trace (Negative) 12/14/24 11:50 Urine Blood Negative (Negative) 12/14/24 11:50 Urine Nitrate Negative (Negative) 12/14/24 11:50 Urine Bilirubin 1+ (Negative) H 12/14/24 11:50 Urine Urobilinogen 1.0 mg/dL (Negative) 12/14/24 11:50 Ur Leukocyte Esterase Negative (Negative) 12/14/24 11:50 Urine RBC 0-4 /hpf (0-2) H 12/14/24 11:50 Urine WBC 0-4 /hpf (0-5) H 12/14/24 11:50 Ur Squamous Epith Cells 0-4 /hpf (0-5) H 12/14/24 11:50 Amorphous Sediment Not Reportable 12/14/24 11:50 Urine Bacteria Trace /hpf (NONE) 12/14/24 11:50 Hyaline Casts 0-4 /lpf H 12/14/24 11:50 Urine Mucus Trace /hpf 12/14/24 11:50 Influenza A (PCR) Negative (Negative) 12/14/24 11:40 Influenza Type B (PCR) Negative (Negative) 12/14/24 11:40 RSV (PCR) Negative (Negative) 12/14/24 11:40 SARS-CoV-2 (PCR) Negative (Negative) 12/14/24 11:40 Discharge Plan Discharge Patient Disposition: Admitted As Inpatient Clinical Impression: Pneumonia, Sepsis, Encephalopathy, Hypotension Condition: Stable Coding Level of Care Code ED Services Host for Olena Gamboa
--- NOTE | 2024-12-14 14:39 | PM.HP ---
Providers/Chief Complaint Primary Care Provider: Talisha Mtz Chief Complaint: Low bp slurred speech History of Present Illness Cliff Oswald is a 79 year old male with a past medical history of hyperlipidemia, CABG, history of colon cancer, who presents [facility] due to weakness, fatigue, altered mental status, presyncope. Currently patient is alert oriented x 2, following all commands, does report fatigue, weakness does report a cough, no sick contacts no recent travel no hemoptysis, no calf pain, calf swelling, he does report today he almost passed out, but never lost consciousness, did report generalized weakness, on EMS arrival his systolic blood pressures were in the 80s, there was concerns for slurring of his words, currently denies any facial droop no slurring of his words, no focal weakness, 1 generalized weakness, no abdominal pain, he had a PET scan last week, does report chest discomfort, anterior discomfort, minimal currently Review of Systems Card: Reports: chest pain GI: Denies: abdominal pain Medications/Allergies Home Medications ?Medication ?Instructions ?Recorded ?Confirmed ?Last Taken ?Type aspirin 81 mg tablet,delayed 81 mg PO DAILY 07/28/19 11/26/24 10/14/20 History release (Adult Low Dose Aspirin) coenzyme Q10 200 mg capsule (Co 200 mg PO DAILY 07/28/19 11/26/24 02/15/22 05:00 History Q-10) trazodone 50 mg tablet 50 mg PO DAILY 07/28/19 11/26/24 02/14/22 20:30 History nitroglycerin 0.4 mg sublingual 0.4 mg sublingual Q5M PRN Pain, 11/09/21 11/26/24 Unknown Rx tablet (Nitrostat) Mild #25 tabs metoprolol tartrate 25 mg tablet 12.5 mg PO DAILY 12/21/21 11/26/24 02/15/22 05:00 History gabapentin 300 mg capsule 300 mg PO TID 05/26/24 11/26/24 Unknown History evolocumab 140 mg/mL subcutaneous 140 mg SUBCUT .Q2WEEK #2 mL 11/26/24 11/26/24 Unknown Rx pen injector (Repatha SureCharlieick) Allergies Allergy/AdvReac Type Severity Reaction Status Date / Time Sulfa (Sulfonamide Allergy Unknown Unknown Verified 11/26/24 12:36 Antibiotics) PFSH Acute PFSH: Medical History 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 COPD (chronic obstructive pulmonary disease) History of scarlet fever GERD (gastroesophageal reflux disease) Hyperlipidemia associated with type 2 diabetes mellitus Coronary artery disease Surgical History S/P right hemicolectomy (11/24/19) Status post colonoscopy with polypectomy (10/21/20) 11/11/19 S/P CABG x 3 Status post right inguinal hernia repair S/P PTCA (percutaneous transluminal coronary angioplasty) 2010 X2 S/P wrist surgery Left S/P knee replacement Left S/P CABG (coronary artery bypass graft) Family History Sister Cancer breast Mother Hypercholesterolemia Myocardial infarction Father Myocardial infarction Diabetes Denies family history of Anesthesia complication Bleeding disorder Social History Smoking and tobacco/nicotine status: former use of tobacco/nicotine Alcohol intake: never Substance/Drug Use: never Household members: spouse Marital status: Current occupational status: retired Vitals/I&O/Wt Last Vital Signs Temp 97.6 F 12/14/24 11:13 Pulse 55 L 12/14/24 11:13 Resp 16 12/14/24 11:13 BP 109/58 12/14/24 11:13 Pulse Ox 94 12/14/24 11:13 O2 Del Method Room Air 12/14/24 11:13 Weight last 48 hrs Weight 97.522 kg Physical Exam Const: COMMON NORMALS: no acute distress and patient oriented x3 HENMT: COMMON NORMALS: normocephalic HEAD & SCALP: normocephalic Eye: COMMON NORMALS: Equal, round and reactive pupils present Resp: COMMON NORMALS: normal respiratory effort, No retractions, No use of accessory muscles and clear to auscultation bilaterally AUSCULTATION: clear to auscultation bilaterally Cardio: COMMON NORMALS: regular rate, regular rhythm, S1 normal heart sound present and S2 normal heart sound present RATE: regular rate RHYTHM: regular rhythm HEART SOUNDS: S1 normal heart sound present and S2 normal heart sound present GI: COMMON NORMALS: Normal to inspection, nondistended, normoactive bowel sounds present, Soft to palpation and non-tender Extremity: COMMON NORMALS: no calf tenderness and no pedal edema Neuro: COMMON NORMALS: patient oriented x3, CN's II-XII intact bilaterally and moves all extremities Psych: COMMON NORMALS: mental status grossly normal Data 12/14/24 11:25 12/14/24 11:25 Micro: Microbiology 12/14/24 11:35 Blood Culture - Preliminary Blood SPECIMEN COLLECTED 12/14/24 11:37 Blood Culture - Preliminary Blood SPECIMEN COLLECTED A&P Assessment and plan 1. Encephalopathy: 2. Coronary artery disease: 3. Hyperlipidemia associated with type 2 diabetes mellitus: 4. Pneumonia: Plan: Acute encephalopathy - Likely multifactorial - Pneumonia - Dehydration Plan - Neurochecks - NIH stroke scale - CT head Left lower lobe pneumonia - Sputum culture - Blood cultures - Rocephin - Azithromycin Sepsis - Secondary to left lower lobe pneumonia - Status post sepsis bolus - Continue IV antibiotics as above Syncope - CT head - Carotid artery ultrasound - Cardiac echo Chest pain - Serial EKGs, serial troponins, tolerating monitoring - Aspirin DNR DNI, is okay with drugs per ACLS Lovenox for DVT prophylaxis PDMP PDMP Reviewed: Not Reviewed Attestations Medical Necessity Statement*: Patient requires hospitalization, inpatient, greater than 2 midnights, for acute encephalopathy Diagnoses Encephalopathy G93.40 Coronary artery disease I25.10 Hyperlipidemia associated with type 2 diabetes mellitus E11.69; E78.5 Pneumonia J18.9 Sepsis Event Note Evaluation Current stage of sepsis: sepsis Initial hypotension due to sepsis/infection: SBP < 90 mmHg Possible source: pulmonary Focused Exam Vital Signs Temp Pulse Resp BP Pulse Ox O2 Del Method 12/14/24 11:13 97.6 F 55 L 16 109/58 94 Room Air Peripheral pulse strength: 2+ Slightly Diminished Peripheral pulse location: Radial Skin exam: normal turgor Date exam was performed: 12/14/24 Time exam was performed: 14:45
--- NOTE | 2024-12-14 14:40 | ECG_ITS ---
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 Measurements Intervals [place] Rate: 59 P: 0 IA: 0 QRS: -9 QRSD: 104 T: 42 QT: 409 QTc: 407 Interpretive Statements ATRIAL FIBRILLATION WITH SLOW VENTRICULAR RESPONSE LOW QRS VOLTAGE IN PRECORDIAL LEADS [QRS DEFLECTION < 1.0 mV IN CHEST LEADS] INCOMPLETE RIGHT BUNDLE BRANCH BLOCK [90+ ms QRS DURATION, TERMINAL R IN V1/V2, 40+ ms S IN I/aVL/V4/V5/V6] INFERIOR MYOCARDIAL INFARCTION , OF INDETERMINATE AGE [40+ ms Q WAVE AND/OR ST/T ABNORMALITY IN II/aVF].PROBABLE ANTEROSEPTAL MYOCARDIAL INFARCTION , OF INDETERMINATE AGE [35 ms Q WAVE IN V1-V4] Compared to ECG 12/14/2024 13:19:00 Low QRS voltage now present Incomplete right bundle-branch block now present.Myocardial infarct finding now present.Sinus bradycardia no longer present. First degree AV block no longer present.Right bundle-branch block no longer present Electronically Signed On 12-16-2024 19:29:28 CDT by Haley Sanchez M.D. [email or web address]
--- NOTE | 2024-12-14 14:42 | ECG_ITS ---
[employer] Test Date: 2024-12-14 Pat Name: Cliff Oswald Department: Room: Gender: Male Event Producer: : 1945 Requested By: Maty Lee Order Number: [id number] Lyon MD: Haley Sanchez M.D. Measurements Intervals [place] Rate: 60 P: 26 FL: 237 QRS: -22 QRSD: 115 T: 34 QT: 409 QTc: 411 Interpretive Statements SINUS RHYTHM WITH FIRST DEGREE AV BLOCK LOW QRS VOLTAGE IN PRECORDIAL LEADS [QRS DEFLECTION < 1.0 mV IN CHEST LEADS] INCOMPLETE RIGHT BUNDLE BRANCH BLOCK [90+ ms QRS DURATION, TERMINAL R IN V1/V2, 40+ ms S IN I/aVL/V4/V5/V6] INFERIOR MYOCARDIAL INFARCTION , PROBABLY OLD [40+ ms Q WAVE AND/OR ST/T ABNORMALITY IN II/aVF] Compared to ECG 12/14/2024 14:40:59 First degree AV block now present Atrial fibrillation no longer present Myocardial infarct finding still present Electronically Signed On 12-16-2024 19:46:38 CDT by Haley Sanchez M.D. [email or web address]
[2024-12-14 15:12] LABS: NT Pro B Type Natriuretic Pept 112 pg/mL (0-450); Procalcitonin 0.11 ng/mL (0-0.5)
--- NOTE | 2024-12-14 15:35 | PC.PHAR ---
Pt verified medications with his (Courtney)on the phone.
[2024-12-14 18:06] LABS: Estmated Average Glucose 137; Hemoglobin A1C 6.4 % (4.0-6.0)
[2024-12-14 18:15] LABS: Cholesterol 236 mg/dL (0-200); HDL Cholesterol 25 mg/dL (60-100); Thyroid Stimulating Hormone 2.18 uIU/mL (0.27-4.20); Triglycerides 628 mg/dL (0-150)
[2024-12-14 18:28] LABS: Troponin 5 6HR 9.45 ng/L (0-15); Troponin 5 6HR Delta -0.55 ng/L (0-12)
[2024-12-15] VITALS (9 sets, daily range): BP systolic 110–135; BP diastolic 50–62; PULSE 52–70; RESP 14–17; TEMP 36.7–37.1; O2SAT 91–94
[2024-12-15 05:45] LABS: Hematocrit 40.1 % (37-53); Hemoglobin 13.10 g/dL (11.27-16.99); Mean Corpuscular HGB Conc 32.7 g/dL (30-55); Mean Corpuscular Hemoglobin 29.6 pg (27-33); Mean Corpuscular Volume 90.7 fl (82-101); Nucleated Red Blood Cells % 0 %; Platelet Count 170 10^3/cmm (157-399); Red Blood Count 4.42 10^6/uL (3.85-5.65); White Blood Count 6.04 10^3/uL (3.29-11.43)
[2024-12-15 06:05] LABS: Anion Gap 16.3 (5-19); Blood Urea Nitrogen 16 mg/dL (8-23); Calcium 9.4 mg/dL (8.5-10.5); Carbon Dioxide 25 mmol/L (22-29); Chloride 101 mmol/L (98-107); Creatinine Clr Calc Pharmacy 93.5909; Glucose 88 mg/dL (65-115); Osmolality Calculated 287 mOsm/kg (285-295); Potassium 4.3 mmol/L (3.5-5.1); Sodium 138 mmol/L (136-145)
--- NOTE | 2024-12-15 09:35 | PC.CHAP ---
Pastoral Care Encounter/Spiritual Assessment Type of Contact [] Declined floral design teacher visit [] Patient/Family/Request visit [] Outpatient visit [] Follow-up visit [] Physician referral [] Code/Alert [x] Routine visit [] Staff referral [] Actively dying [x] Patient sleeping [] Family support [] [] Out of room [] Palliative care [] [] Receiving care in room [] Pre-surgical visit [] Trauma [] Long length of stay [] ICU visit [] Other: Relational/Emotional Strength [] Patient feels connected with others/family/visitors/staff [] Distress [] Loneliness/isolation [] Abandonment Spirituality of Patient [] Person of Radha [] Attends Gnosticist of their Radha [] Believes in Prayer [] Reads Bible or Yazdanism materials [] There are Spiritual issues to be addressed Optometric Assistant Interventions [x] Prayer [] Active listening [] Non-anxious presence [] Spiritual/emotional support [] Crisis/trauma care [] Spiritual counseling [] Bereavement support [] Provided bereavement packet [] Provided Bible/devotional materials [] Provided toy/stuffed animal, coloring book to patient or family member [] Provided Communion [] Anointing/[place] [] Salvation [] Completed spiritual assessment [] Other: Impact on Illness or Injury [] Angry [] Fearful [] Anxious [] Often cries [] Exhaustion [] Unable to work [] Unable to attend mandaen [] Unable to walk/stand [] Unable to read [] Unable to drive [] Unable to eat/drink [] Unable to sleep [] Unable to be with family [] Patient intubated [] Other: Summary Time spent with patient
--- NOTE | 2024-12-15 10:59 | CT_ITS ---
WS: [id number] CTA OF THE CHEST WITH PULMONARY EMBOLISM PROTOCOL TECHNIQUE: High-resolution contrast enhanced CTA of the chest with coronal and sagittal reformatted images with pulmonary embolism protocol. MIP images are also reviewed. CLINICAL INFORMATION: sob COMPARISON: PET/CT 12/20 DLP: 448.[address] scans at [facility] use at least one of these dose optimization techniques: automated exposure control; mA and/or kV adjustment per patient size (includes targeted exams where dose is matched to clinical indication); or iterative reconstruction. FINDINGS: Cardiomegaly. Proximal main pulmonary arteries are normal. Some images degraded by motion. No evidence of pulmonary embolus. RIGHT hilar lymphadenopathy measures 1.7 x 1.9 cm FDG avid on the recent PET/CT. Enlarged subcarinal and paraesophageal lymph nodes also FDG avid on the recent PET/CT. Sternotomy. CABG. Normal caliber thoracic aorta. Vascular calcification. Adrenal glands are normal. Hepatomegaly. Hepatic steatosis. Small to moderate esophageal hiatal hernia. Enlarged lymph nodes at the GE junction. Also FDG avid on the PET/CT. Enlarged lymph nodes at the jaclyn hepatis also demonstrated FDG activity on the recent PET/CT. Chronic emphysematous changes. Thoracic kyphosis. Recent PET/CT demonstrates enlarged and FDG-avid mediastinal hilar and subcarinal lymph nodes. FDG-avid LEFT lower lobe nodule as described on the PET/CT. CT/CT angio chest PE protcl [id number] IMPRESSION: 1. No evidence of pulmonary embolus. 2. Recent PET/CT demonstrated FDG avid enlarged lymph nodes in the chest and u pper abdomen with an FDG avid LEFT lower lobe nodule. See the recent PET/CT rep ort 12/12/2024.
[2024-12-15] MEDS: iohexol 350 mg/mL 500 mL Btl (per mL) IV (11:19)
--- NOTE | 2024-12-15 14:29 | PM.DCS ---
Discharge Providers Date of Admission: 12/14/24 13:43 Date of Discharge: December 15, 2024 Attending Provider at Admission: Mathieu Patel MD Attending Provider at Discharge: Mathieu Patel MD Primary Care Provider: Talisha Mtz Diagnoses at Discharge Discharge Diagnosis 1. Encephalopathy: 2. Hyperlipidemia associated with type 2 diabetes mellitus: 3. Pneumonia: Reason for Visit Reason for Visit: Low bp slurred speech Hospital Course Hospital Course Cliff Oswald is a 79 year old male with a past medical history of hyperlipidemia, CABG, history of colon cancer, who presents [facility] due to weakness, fatigue, altered mental status, presyncope. Currently patient is alert oriented x 2, following all commands, does report fatigue, weakness does report a cough, no sick contacts no recent travel no hemoptysis, no calf pain, calf swelling, he does report today he almost passed out, but never lost consciousness, did report generalized weakness, on EMS arrival his systolic blood pressures were in the 80s, there was concerns for slurring of his words, currently denies any facial droop no slurring of his words, no focal weakness, 1 generalized weakness, no abdominal pain, he had a PET scan last week, does report chest discomfort, anterior discomfort, minimal currently Patient was admitted to [facility] for acute encephalopathy, secondary to left lower lobe pneumonia, sepsis, syncope, chest pain Acute encephalopathy, resolved - Likely multifactorial - Pneumonia - Dehydration -Alert oriented x 3 on discharge, Left lower lobe pneumonia - Sputum culture no growth - Blood cultures no growth - Rocephin, Azithromycin, as inpatient - Discharge on p.o. antibiotics Sepsis - Secondary to left lower lobe pneumonia - Status post sepsis bolus - Resolved on discharge Syncope - CT head CT/CT head wo con* [id number] IMPRESSION: No acute intracranial abnormality. If symptoms persist, consider further evaluation with MRI, if there are no contraindications to obtaining a MRI scan. - Carotid artery ultrasound US/CV carotid duplex BI* [id number] IMPRESSION: No carotid arterial stenosis. - Cardiac echo CONCLUSIONS Normal left ventricular size, systolic function and wall thickness with ejection fraction of 55%. Normal right ventricular size and systolic function. Mild mitral valve regurgitation. Chest pain - Serial EKGs, serial troponins, tolerating monitoring - Aspirin - No recurrent chest pain Overall clinically improved, discharged on oral antibiotics, with close follow-up with primary care provider Physical Exam Const: COMMON NORMALS: no acute distress and patient oriented x3 Eye: COMMON NORMALS: Equal, round and reactive pupils present PUPIL: Yes Equal, round and reactive pupils present Resp: COMMON NORMALS: normal respiratory effort, No retractions, No use of accessory muscles and clear to auscultation bilaterally AUSCULTATION: clear to auscultation bilaterally Cardio: COMMON NORMALS: regular rate, regular rhythm, S1 normal heart sound present and S2 normal heart sound present RATE: regular rate RHYTHM: regular rhythm HEART SOUNDS: S1 normal heart sound present and S2 normal heart sound present GI: COMMON NORMALS: Normal to inspection, nondistended, normoactive bowel sounds present and non-tender Extremity: COMMON NORMALS: no calf tenderness and no pedal edema Neuro: COMMON NORMALS: patient oriented x3 and moves all extremities Psych: COMMON NORMALS: mental status grossly normal Discharge Data Studies Completed and Pending Completed Studies During Hospitalization Category Date Time Status CT angio chest PE protcl [id number] Stat Cat Scan 12/15/24 10:[address] head wo con* [id number] Stat Cat Scan 12/14/24 14:35 Completed XR chest 1V portable [id number] Stat Exams 12/14/24 11:14 Completed CV carotid duplex BI* [id number] Stat Ultrasound 12/14/24 14:35 Completed CV. echo complete* [id number] Stat Ultrasound 12/14/24 14:35 Completed Pending at discharge Category Date Time Status Basic Metabolic Panel AM LABS Lab 12/16/24 04:00 Ordered Basic Metabolic Panel AM LABS Lab 12/17/24 04:00 Ordered Blood Culture Stat Lab 12/14/24 11:35 Results Complete Blood Count w/Auto AM LABS Lab 12/16/24 04:00 Ordered Complete Blood Count w/Auto AM LABS Lab 12/17/24 04:00 Ordered Sputum Culture and Gram Stain Stat Lab 12/14/24 16:15 Results Radiology Impressions Chest X-Ray 12/14/24 11:14 IMPRESSION: Left lung base atelectasis/infiltrate. Carotid Doppler Study 12/14/24 14:35 IMPRESSION: No carotid arterial stenosis. REFERENCES: SRU CRITERIA. The degree of internal carotid artery stenosis is based on criteria defined by the Society of Radiologists in Ultrasound (SRU). Normal is no stenosis. Mild is less than 50% stenosis. Moderate is 50-69% stenosis. Severe is greater than 69% stenosis to near occlusion. Near occlusion is a markedly narrowed lumen. Total occlusion is no detectable patent lumen. Michele Miranda, et al. Carotid Artery Stenosis: Isabel-Scale and Doppler US Diagnosis-Society of Radiologists in Ultrasound Consensus Conference. Radiology 2003; 229:340-346. Head CT 12/14/24 14:35 IMPRESSION: No acute intracranial abnormality. If symptoms persist, consider further evaluation with MRI, if there are no contraindications to obtaining a MRI scan. Chest CTA 12/15/24 10:59 IMPRESSION: 1. No evidence of pulmonary embolus. 2. Recent PET/CT demonstrated FDG avid enlarged lymph nodes in the chest and upper abdomen with an FDG avid LEFT lower lobe nodule. See the recent PET/CT report 12/12/2024. Laboratory Results WBC 6.04 10^3/uL (3.29-11.43) 12/15/24 04:21 RBC 4.42 10^6/uL (3.85-5.65) 12/15/24 04:21 Hgb 13.10 g/dL (11.27-16.99) 12/15/24 04:21 Hct 40.1 % (37-53) 12/15/24 04:21 MCV 90.7 fl (82-101) 12/15/24 04:21 MCH 29.6 pg (27-33) 12/15/24 04:21 MCHC 32.7 g/dL (30-55) 12/15/24 04:21 RDW 12.8 % (12.1-15.1) 12/15/24 04:21 Plt Count 170 10^3/cmm (157-399) 12/15/24 04:21 MPV 10.4 fL (7.4-10.4) 12/15/24 04:21 Neut % (Auto) 54.3 % 12/15/24 04:21 Lymph % (Auto) 28.5 % 12/15/24 04:21 Saunders % (Auto) 8.8 % 12/15/24 04:21 Eos % (Auto) 7.9 % 12/15/24 04:21 Baso % (Auto) 0.3 % 12/15/24 04:21 Neut # (Auto) 3.28 10^3/uL (1.8-7.7) 12/15/24 04:21 Lymph # (Auto) 1.7 10^3/uL (0.8-4.8) 12/15/24 04:21 Saunders # (Auto) 0.5 10^3/uL (0.2-0.9) 12/15/24 04:21 Eos # (Auto) 0.5 10^3/uL (0.0-0.8) 12/15/24 04:21 Baso # (Auto) 0.0 10^3/uL (0.0-0.1) 12/15/24 04:21 Nucleated RBC % (auto) 0 % 12/15/24 04:21 Nucleated RBCs # 0.0 /100WBC 12/15/24 04:21 Sodium 138 mmol/L (136-145) 12/15/24 04:21 Potassium 4.3 mmol/L (3.5-5.1) 12/15/24 04:21 Chloride 101 mmol/L (98-107) 12/15/24 04:21 Carbon Dioxide 25 mmol/L (22-29) 12/15/24 04:21 Anion Gap 16.3 (5-19) 12/15/24 04:21 BUN 16 mg/dL (8-23) 12/15/24 04:21 Creatinine 0.8 mg/dL (0.7-1.2) 12/15/24 04:21 GFR Calculation Not Reportable 12/15/24 04:21 Glucose 88 mg/dL (65-115) 12/15/24 04:21 Estimat Average Glucose 137 12/14/24 11:25 Hemoglobin A1c 6.4 % (4.0-6.0) H 12/14/24 11:25 Calculated Osmolality 287 mOsm/kg (285-295) 12/15/24 04:21 Lactic Acid 3.1 mmol/L (0.5-2.2) H 12/14/24 11:25 Lactic Acid (Sepsis) 1.9 mmol/L (0.5-2.2) 12/14/24 13:00 Calcium 9.4 mg/dL (8.5-10.5) 12/15/24 04:21 Total Bilirubin 0.3 mg/dL (0.15-1.2) 12/14/24 11:25 AST 33 U/L (0-40) 12/14/24 11:25 ALT 38 U/L (0-41) 12/14/24 11:25 Alkaline Phosphatase 52 U/L (40-130) 12/14/24 11:25 Troponin T Baseline 10 ng/L (0-15) 12/14/24 11:25 Troponin T 120 Minute 8.14 ng/L (0-15) 12/14/24 13:00 Delta Troponin T -1.86 ABS# (0-10) L 12/14/24 13:00 Troponin T Hi Sens 6Hr 9.45 ng/L (0-15) 12/14/24 18:03 Troponin T Hi Sens 6Hr Delta -0.55 ng/L (0-12) L 12/14/24 18:03 C-Reactive Protein 7.3 mg/L (0.0-4.9) H 12/14/24 11:25 NT-Pro-B Natriuret Pep 112 pg/mL (0-450) 12/14/24 11:25 Total Protein 7.2 g/dL (6.6-8.7) 12/14/24 11:25 Albumin 4.1 g/dL (3.5-5.2) 12/14/24 11:25 Globulin 3.1 g/dL (1.3-4.6) 12/14/24 11:25 Triglycerides 628 mg/dL (0-150) H 12/14/24 11:25 Cholesterol 236 mg/dL (0-200) H 12/14/24 11:25 LDL Cholesterol Direct 106 mg/dL (0-100) H 12/14/24 11:25 LDL Cholesterol, Calc Not Reportable 12/14/24 11:25 HDL Cholesterol 25 mg/dL (60-100) L 12/14/24 11:25 LDL/HDL Ratio Not Reportable 12/14/24 11: Cholesterol/HDL Ratio 9.44 mg/dL (1.0-5.00) H 12/14/24 11:25 Procalcitonin 0.11 ng/mL (0-0.5) 12/14/24 11:25 TSH 2.18 uIU/mL (0.27-4.20) 12/14/24 11:25 Urine Color Dark yellow (Yellow) A 12/14/24 11:50 Urine Appearance Clear (CLEAR) 12/14/24 11:50 Urine pH 6.0 (5-7) 12/14/24 11:50 Ur Specific [place] 1.019 (1.005-1.030) 12/14/24 11:50 Urine Protein Negative (Negative) 12/14/24 11:50 Urine Glucose (UA) Negative (Normal) 12/14/24 11:50 Urine Ketones Trace (Negative) 12/14/24 11:50 Urine Blood Negative (Negative) 12/14/24 11:50 Urine Nitrate Negative (Negative) 12/14/24 11:50 Urine Bilirubin 1+ (Negative) H 12/14/24 11:50 Urine Urobilinogen 1.0 mg/dL (Negative) 12/14/24 11:50 Ur Leukocyte Esterase Negative (Negative) 12/14/24 11:50 Urine RBC 0-4 /hpf (0-2) H 12/14/24 11:50 Urine WBC 0-4 /hpf (0-5) H 12/14/24 11:50 Ur Squamous Epith Cells 0-4 /hpf (0-5) H 12/14/24 11:50 Amorphous Sediment Not Reportable 12/14/24 11:50 Urine Bacteria Trace /hpf (NONE) 12/14/24 11:50 Hyaline Casts 0-4 /lpf H 12/14/24 11:50 Urine Mucus Trace /hpf 12/14/24 11:50 Influenza A (PCR) Negative (Negative) 12/14/24 11:40 Influenza Type B (PCR) Negative (Negative) 12/14/24 11:40 RSV (PCR) Negative (Negative) 12/14/24 11:40 SARS-CoV-2 (PCR) Negative (Negative) 12/14/24 11:40 Vitals Last Vital Signs Temp 98.4 F 12/15/24 11:17 Pulse 69 12/15/24 11:36 Resp 16 12/15/24 11:30 BP 110/50 12/15/24 11:17 Pulse Ox 93 12/15/24 11:30 O2 Del Method Room Air 12/15/24 11:30 Discharge Plan Discharge Patient Disposition: Home Condition: Stable Prescriptions: New metoprolol tartrate 25 mg Tablet 12.5 mg PO DAILY 30 Days Qty: 15 0RF albuterol sulfate [Ventolin HFA] 90 mcg/actuation HFA aerosol inhaler 1 inh inhalation Q6H PRN (Reason: shortness of breath or wheezing) Qty: 8.5 0RF Continued nitroglycerin [Nitrostat] 0.4 mg tablet, sublingual 0.4 mg SUBLINGUAL Q5M PRN (Reason: Pain, Mild) Qty: 25 2RF Rx Instructions: do not exceed 3 doses per episode aspirin [Adult Low Dose Aspirin] 81 mg tablet,delayed release (DR/EC) 81 mg PO QPM coenzyme Q10 [Co Q-10] 200 mg capsule 200 mg PO DAILY Repatha SureClick 140 mg/mL pen injector 140 mg SUBCUT .Q2WEEK Qty: 2 6RF Rx Instructions: Sunday gabapentin 600 mg tablet 600 mg PO TID trazodone 100 mg tablet 100 mg PO BID Vision Tablet 1 tab PO DAILY omega-3 acid ethyl esters 1 gram capsule 1 cap PO BID diclofenac sodium 1 % Gel 2 g TOPICAL BID PRN (Reason: Pain) Rx Instructions: apply to single elbow, wrist or hand; for hand includes palm/fingers/back of hand Hair, Skin and Nails (biotin) 10,000 mcg Tablet,Chewable 10,000 mcg PO DAILY No Action Stiolto Respimat 2.5-2.5 mcg/actuation mist 2 puff inhalation DAILY Qty: 4 0RF hydrocodone-acetaminophen 5-325 mg tablet 1 tab PO Q8H PRN (Reason: Pain) Discharge Order = DC NOW: Discharge Order (Routine); Ordered 12/15/24 Ordered By: Mathieu Patel Referrals: Yvonne De Jesus MD [Physician, Pulmonology] - 12/16/24 9:15 am Referral Note: Lars Abernathy MD [Physician, Ear, Nose, Throat] - 12/19/24 10:00 am Talisha Mtz PA [Primary Care Provider, Physicians Frame Feeder] - 12/24/24 2:40 pm Rodrick Olsen MD [Hospitalist, Oncology] - 4-7 days Referral Note: We have notified your physician's clinic of the need for a follow-up appointment to be scheduled. If you have not heard from them within the next 2 business days, please call them directly. Discharge Diet: Cardiac Discharge Activity: Resume usual activity Patient Instructions: Metoprolol (By mouth), Albuterol (By breathing), Opioid Safety, Patient Portal & Anjali Instructions Activity Restrictions/Additional Instructions: -please use hydrocodone sparingly for pain, don ot drive, or operate heavy machinery or drink while taking medication -please follow up with pulmonary Discharge Attestations Time Spent in Discharge Care*: greater than 30 min Quality Metrics Clinical Quality Measures [ No reported AMI, CVA or VTE this stay] Coding Level of Care Code 37601 Total time (in minutes) for Discharge: 45 Diagnoses Encephalopathy G93.40 Coronary artery disease I25.10 Hyperlipidemia associated with type 2 diabetes mellitus E11.69; E78.5 Pneumonia J18.9
[2024-12-15] MEDS: cefTRIAXone 1,000 mg SDV 1000 MG IVP (14:35)
== END 2024-12-15 15:32 | disposition home or self-care (01) ==
LOC: ER 16:10 → MEDSURG 19:02
PROVIDERS: Admitting Provider Family Medicine; Emergency Provider Emergency Medicine; PCP Physician Assistant; Visit Provider Family Medicine
DX: G93.40 Encephalopathy, unspecified (principal); I25.10 Atherosclerotic heart disease of native coronary artery without angina pectoris; E11.69 Type 2 diabetes mellitus with other specified complication; E78.5 Hyperlipidemia, unspecified; J18.9 Pneumonia, unspecified organism; Z79.891 Long term (current) use of opiate analgesic; Z79.82 Long term (current) use of aspirin; Z95.1 Presence of aortocoronary bypass graft; Z85.038 Personal history of other malignant neoplasm of large intestine; R41.82 Altered mental status, unspecified; J44.9 Chronic obstructive pulmonary disease, unspecified; K21.9 Gastro-esophageal reflux disease without esophagitis; Z87.891 Personal history of nicotine dependence
CPT/HCPCS: 36415; 70450; 71045; 71275; 80048; 80053; 80061; 81001; 83036; 83605; 83721; 83880; 84145; 84443; 84484; 85025; 86140; 87040; 87070; 87205; 87637; 93005; 93306; 93880; 94640; 94664; 96361; 96365; 96372; 96375; 96376; 97161; 99285; G0378; J0456; J0696; J1650; J7030; J7040; J7050; J9999

== ENCOUNTER → 2024-12-16 09:14 | Outpatient (BNVA) | payer MEDICARE, SELFPAY | PROVIDERS: PCP Physician Assistant; Visit Provider Internal Medicine | DX: J44.9 Chronic obstructive pulmonary disease, unspecified (principal); R59.1 Generalized enlarged lymph nodes; K11.8 Other diseases of salivary glands; G95.9 Disease of spinal cord, unspecified; R94.2 Abnormal results of pulmonary function studies; R91.1 Solitary pulmonary nodule; Z87.891 Personal history of nicotine dependence; D75.1 Secondary polycythemia | CPT/HCPCS: 99204; 99496 ==

== ENCOUNTER → 2024-12-17 12:55 | Outpatient (BNVA) | payer MEDICARE, SELFPAY | PROVIDERS: PCP Physician Assistant; Visit Provider Podiatrist Foot & Ankle Surgery | DX: I73.9 Peripheral vascular disease, unspecified (principal); B35.1 Tinea unguium; M21.612 Bunion of left foot | CPT/HCPCS: 11721 ==

== ENCOUNTER 2024-12-22 14:01 | Oncology outpatient (recurring) (ONCR) | payer MEDICARE, SELFPAY | END 2024-12-26 23:59 | disposition home or self-care (01) | PROVIDERS: PCP Physician Assistant; Visit Provider Internal Medicine Medical Oncology | DX: J98.4 Other disorders of lung (principal); R59.1 Generalized enlarged lymph nodes; R91.8 Other nonspecific abnormal finding of lung field; Z87.891 Personal history of nicotine dependence | CPT/HCPCS: 99205 ==

== ENCOUNTER 2024-12-24 09:15 | Day surgery (SDC) | payer MEDICARE, SELFPAY ==
[2024-12-24] VITALS (10 sets, daily range): BP systolic 97–137; BP diastolic 56–93; PULSE 61–82; RESP 16–18; TEMP 36.1–36.8; O2SAT 90–97; BMI 28.5
[2024-12-24 10:29] LABS: Hematocrit 46.2 % (37-53); Hemoglobin 15.50 g/dL (11.27-16.99); Mean Corpuscular HGB Conc 33.5 g/dL (30-55); Mean Corpuscular Hemoglobin 30.1 pg (27-33); Mean Corpuscular Volume 89.7 fl (82-101); Nucleated Red Blood Cells % 0 %; Platelet Count 210 10^3/cmm (157-399); Red Blood Count 5.15 10^6/uL (3.85-5.65); White Blood Count 7.84 10^3/uL (3.29-11.43)
[2024-12-24 10:41] LABS: INR 0.92 (0.8-1.2); Prothrombin Time 13.10 SECONDS (12.1-14.9)
--- NOTE | 2024-12-24 10:50 | ANES.PREANE2 ---
Pre-Anesthetic Assessment Height/Weight: Height 1.83 m Weight 95.254 kg Temp Pulse Resp BP Pulse Ox O2 Del Method 97 F L 82 18 137/93 94 Room Air 12/24/24 09:40 12/24/24 09:40 12/24/24 09:40 12/24/24 09:40 12/24/24 09:40 12/24/24 09:40 Operation Date: 12/24/24 07:20 Proposed Procedures p Bronchoscopy [id number](Not Applicable) - Yvonne De Jesus MD s Ion Robotic Assisted Bronchoscopy(Not Applicable) - Yvonne De Jesus MD s Ebus(Not Applicable) - Yvonne De Jesus MD Familial anesthetic complications: None Was Beta Apolinar taken within 24 hours: N/A Was Clonidine taken within 24 hours: N/A Last intake: Intake Last Liquid Date 12/20/24 Last Liquid Time 18:00 Last Solid Date 12/23/24 Last Solid Time 18:00 Social Tobacco (former smoker) and No alcohol Exam alert, oriented x 3, clear to auscultation bilaterally and regular rate & rhythm Airway Mallampati: Class III Dentition: chipped Pulmonary Chronic Obstructive Pulmonary Disease pneumonia CV/HEM Coronary Artery Disease (prior cabg) EKG SINUS RHYTHM WITH FIRST DEGREE AV BLOCK LOW QRS VOLTAGE IN PRECORDIAL LEADS [QRS DEFLECTION < 1.0 mV IN CHEST LEADS] INCOMPLETE RIGHT BUNDLE BRANCH BLOCK [90+ ms QRS DURATION, TERMINAL R IN V1/V2, 40+ ms S IN I/aVL/V4/V5/V6] INFERIOR MYOCARDIAL INFARCTION , PROBABLY OLD [40+ ms Q WAVE AND/OR ST/T ABNORMALITY IN II/aVF] Compared to ECG 12/14/2024 14:40:59 First degree AV block now present Atrial fibrillation no longer present Myocardial infarct finding still present Electronically Signed On 12-16-2024 19:46:38 CDT by Haley Sanchez M.D. echo CONCLUSIONS Normal left ventricular size, systolic function and wall thickness with ejection fraction of 55%. Normal right ventricular size and systolic function. Mild mitral valve regurgitation. stress test CONCLUSION: 1. No significant EKG changes with the LexiScan infusion. 2. No LexiScan induced chest pain or cardiac arrhythmia. 3. Normal blood pressure and heart rate response. 4. Sestamibi/sestamibi perfusion scan pending; see separate report. GI hx colon cancer Metabolic Diabetes Mellitus and Hyperlipidemia Anesthetic Plan ASA status: 3 Anesthesia: General Risk of > 500 ml blood loss (7ml/kg in children): No Medications/Allergies Home Medications ?Medication ?Instructions ?Recorded ?Confirmed ?Last Taken ?Type aspirin 81 mg tablet,delayed 81 mg PO QPM 07/28/19 12/22/24 12/19/24 History release (Adult Low Dose Aspirin) coenzyme Q10 200 mg capsule (Co 200 mg PO DAILY 07/28/19 12/22/24 12/23/24 History Q-10) nitroglycerin 0.4 mg sublingual 0.4 mg sublingual Q5M PRN Pain, 11/09/21 12/22/24 Unknown Rx tablet (Nitrostat) Mild #25 tabs evolocumab 140 mg/mL subcutaneous 140 mg SUBCUT .Q2WEEK #2 mL 11/26/24 12/22/24 12/05/24 Rx pen injector (Darlin Tapia) biotin 10,000 mcg chewable tablet 10,000 mcg PO DAILY 12/14/24 12/22/24 12/23/24 History (Hair, Skin and Nails (biotin)) diclofenac sodium 1 % topical gel 2 g topical BID PRN Pain 12/14/24 12/22/24 Unknown History gabapentin 600 mg tablet 600 mg PO TID 12/14/24 12/22/24 12/23/24 History omega-3 acid ethyl esters 1 gram 1 cap PO BID 12/14/24 12/22/24 12/23/24 History capsule trazodone 100 mg tablet 100 mg PO BID 12/14/24 12/22/24 12/23/24 History vitamin A-vitamin C-vit E-min 1 tab PO DAILY 12/14/24 12/22/24 12/22/24 History tablet (Vision tablet) albuterol sulfate 90 mcg/actuation 1 inh inhalation Q6H PRN shortness 12/15/24 12/22/24 12/23/24 Rx aerosol inhaler (Ventolin HFA) of breath or wheezing #8.5 grams metoprolol tartrate 25 mg tablet 12.5 mg (1/2 x 25 mg) PO DAILY 30 12/15/24 12/22/24 12/24/24 07:30 Rx days #15 tabs tiotropium 2.5 mcg-olodaterol 2.5 2 puff inhalation DAILY #4 grams 12/16/24 12/22/24 Unknown Rx mcg/actuation mist for inhalation (Stiolto Respimat) hydrocodone 5 mg-acetaminophen 325 1 tab PO Q8H PRN Pain 12/22/24 12/22/24 12/23/24 History mg tablet Allergies Allergy/AdvReac Type Severity Reaction Status Date / Time Sulfa (Sulfonamide Allergy Unknown Unknown Verified 12/22/24 14:12 Antibiotics) Current Medications Generic Name Dose Route Start Last Admin Trade Name Freq PRN Reason Stop Dose Admin Sodium Chloride 1,000 mls @ 15 mls/hr 12/24/24 09:26 12/24/24 09:58 Sodium Chloride 0.9% IV 12/25/24 09:25 15 mls/hr .Q24H PRN Administration COLONOSCOPY FLUIDS PFSH Anesthesia Medical History (Updated 12/22/24 @ 14:42 by Noemi Jerez MD) Mediastinal lymphadenopathy 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 COPD (chronic obstructive pulmonary disease) History of scarlet fever GERD (gastroesophageal reflux disease) Hyperlipidemia associated with type 2 diabetes mellitus Coronary artery disease Surgical History S/P right hemicolectomy (11/24/19) Status post colonoscopy with polypectomy (10/21/20) 11/11/19 S/P CABG x 3 Status post right inguinal hernia repair S/P PTCA (percutaneous transluminal coronary angioplasty) 2010 X2 S/P wrist surgery Left S/P knee replacement Left S/P CABG (coronary artery bypass graft) Family History Sister Cancer breast Mother Hypercholesterolemia Myocardial infarction Father Myocardial infarction Diabetes Denies family history of Anesthesia complication Bleeding disorder Social History Smoking and tobacco/nicotine status: former use of tobacco/nicotine (2 ppd X 45 years. Quit in 2004) Alcohol intake: never Substance/Drug Use: never Household members: spouse Marital status: Current occupational status: retired Data Anesthesia 12/24/24 09:58 Short CBC 12/24/24 Range/Units 09:58 WBC 7.84 (3.29-11.43) 10^3/uL Hgb 15.50 (11.27-16.99) g/dL Hct 46.2 (37-53) % MCV 89.7 (82-101) fl Plt Count 210 (157-399) 10^3/cmm Neut % (Auto) 59.6 % Neut # (Auto) 4.67 (1.8-7.7) 10^3/uL Coags 12/24/24 09:58 PT 13.10 INR 0.92 Cardiac Studies: Echocardiogram 12/14/24 Sestamibi Stress Test (Cardiology) 01/23/22
--- NOTE | 2024-12-24 11:51 | W.PM.OPSUD ---
Surgery/Procedure H&P Update DATE OF PROCEDURE: December 24, 2024 DATE H&P PERFORMED: 12/16/24 H&P UPDATE INFORMATION: I have reviewed H&P completed within last 30 days, I have examined patient prior to procedure, No changes to prior documentation, Changes to prior documentation as noted here, H&P to be scanned into chart, H&P is in [facility] EMR on date indicated and Risks and benefits of the procedure reviewed PLANNED PROCEDURE: Surgery/Procedure H&P Update DATE OF PROCEDURE:12/24/2024 DATE H&P PERFORMED: 12/16/2024 CHANGES TO PREVIOUS DOCUMENTATION: Patient was seen and examined. No significant changes since I saw in the clinic. We will proceed with bronchoscopy as we planned. PREOP DIAGNOSIS: Mediastinal and hilar lymphedenopathy PRIMARY INDICATION FOR PROCEDURE: Mediastinal and hilar lymphedenopathy EBUS needle biopsy to rule out malignancy PLANNED PROCEDURE: Operation Date: 12/24/2024 1130 am Proposed Procedures EBUS Bronchoscopy for lung nodule POSSIBLE Biopsy [id number], 29071, 76722, 22725, 77257, 198.4 - Yvonne De Jesus MD Operation Date: 12/24/24 07:20 Proposed Procedures p Bronchoscopy [id number] [id number] 87850 25325 [id number] [id number](Not Applicable) - Yvonne De Jesus MD s Ebus(Not Applicable) - Yvonne De Jesus MD
[2024-12-24] MEDS: EPINEPHrine 1 MG in sodium chloride 0.9% 19 ML XX (12:37)
--- NOTE | 2024-12-24 13:18 | P.OP_ITS ---
Procedure: Endobronchial ultrasound biopsy with complete mediastinal staging Attending: Yvonne De Jesus MD Indication: mediastinal and hilar lymphedenopathy Anesthesia: General anesthesia per anesthesia team Procedure: Pre-Anesthesia Assessment [place] Protocol: Pre-procedure Verification: Prior to the procedure, the patient's identity was confirmed using full name, date of , and medical record number. Identity verification included a review of all relevant medical records, history, physical examination, medications, allergies, and previous anesthesia tolerance. Risks, benefits, sedation options, and associated risks were reviewed with the patient, and informed consent was obtained after addressing all questions. Time-Out: Immediately before the procedure, a time-out was conducted to confirm patient identification, procedure details, consent, image labeling, and the need for prophylactic antibiotics. This was verified by the physician, nurse, anesthesiologist, and diamond sizer and sorter. Outcome: The procedure was completed without difficulty, and the patient tolerated it well. Findings: A thorough airway exam was performed after passage of the bronchoscope. The trachea was anatomically normal. The right sided airway was anatomically normal without endobronchial lesions. Some secretions noted and suctioned out The left sided airway was anatomically normal without endobronchial lesions. Some secretions noted and suctioned out The prior bronchoscope was removed from the airway and the EBUS scope was inserted. A complete curvilinear EBUS procedure was performed of the following lymph nodes: Level 11R station was identified. It was completely encased among major blood vessels,could not be safely biopsied. Level 4R station was identified. No nodes met size criteria for biopsy. Level 7 station was identified with the EBUS scope and 8 passes were made using a 21G Olympus TBNA needle. Level 4L station was identified. No nodes met size criteria for biopsy. Level 11L station was identified. No nodes met size criteria for biopsy. Spencer Bleeding Scale Grade 1: Suctioning <1 minute. Bleeding of no clinical consequence to patient or provider. Following completion of all diagnostic and therapeutic procedures, hemostasis was verified. The scope was removed and procedure concluded. In summary, the following procedures were performed: 16352 cEBUS 1-2 lesions, (Central curvelinear EBUS 1-2 lesions) Yvonne De Jesus MD Pulmonary and Critical Care
--- NOTE | 2024-12-24 14:45 | ANE.PACU2 ---
Inpatient post-anesthesia follow up: Airway intact: Yes Vital signs: Temperature 97.1 F Pulse Rate 63 Respiratory Rate 18 Blood Pressure 125/70 Pulse Oximetry 97 Oxygen Delivery Me thod Room Air Oxygen Flow Rate Fraction of Inspir ed Oxygen Hydration adequate: Yes Nausea and vomiting: No Pain level: 1 Mental status: Baseline
== END 2024-12-24 14:44 | disposition home or self-care (01) ==
PROVIDERS: PCP Physician Assistant; Visit Provider Internal Medicine
PROC: 0BJ08ZZ Inspection of Tracheobronchial Tree, Via Natural or Artificial Opening Endoscopic (ICD-10-PCS; CPT 31622; principal; 2024-12-24 11:20)
PROC: BB4BZZZ Ultrasonography of Pleura (ICD-10-PCS; 2024-12-24 11:20)
DX: R59.0 Localized enlarged lymph nodes (principal); J98.59 Other diseases of mediastinum, not elsewhere classified; J44.9 Chronic obstructive pulmonary disease, unspecified; I25.10 Atherosclerotic heart disease of native coronary artery without angina pectoris; Z95.1 Presence of aortocoronary bypass graft; Z85.038 Personal history of other malignant neoplasm of large intestine; E11.9 Type 2 diabetes mellitus without complications; E78.5 Hyperlipidemia, unspecified; Z79.82 Long term (current) use of aspirin; Z79.891 Long term (current) use of opiate analgesic; K21.9 Gastro-esophageal reflux disease without esophagitis; Z87.891 Personal history of nicotine dependence
CPT/HCPCS: 31652; 36415; 85025; 85610; 88305; 88312; A9270; J0169; J1100; J2371; J2405; J2704; J3010; J3490; J7030; J9999

== ENCOUNTER → 2024-12-29 11:44 | Outpatient (BNVA) | payer MEDICARE, SELFPAY | PROVIDERS: PCP Physician Assistant; Visit Provider Internal Medicine | DX: J44.9 Chronic obstructive pulmonary disease, unspecified (principal); R59.0 Localized enlarged lymph nodes; R91.1 Solitary pulmonary nodule; R91.8 Other nonspecific abnormal finding of lung field; G95.9 Disease of spinal cord, unspecified; Z98.890 Other specified postprocedural states; Z87.891 Personal history of nicotine dependence; J84.10 Pulmonary fibrosis, unspecified; J84.9 Interstitial pulmonary disease, unspecified; R59.1 Generalized enlarged lymph nodes | CPT/HCPCS: 36415; 82103; 82164; 85651; 86021; 86036; 86038; 86698; 99214; Q3014 ==

== ENCOUNTER 2025-01-06 12:11 | Outpatient (CLI) | payer MEDICARE, SELFPAY ==
--- NOTE | 2025-01-06 12:18 | CTR_ITS ---
PROCEDURE INFORMATION: Exam: CT Neck With Contrast Exam date and time: 01/06/2025 12:54 PM Age: 79 years old Clinical indication: Mass, lump, or swelling in neck; Bilateral; HX of colon cancer; Additional info: Neck mass TECHNIQUE: Imaging protocol: Computed tomography of the neck with contrast. Radiation optimization: All CT scans at this facility use at least one of these dose optimization techniques: automated exposure control; mA and/or kV adjustment per patient size (includes targeted exams where dose is matched to clinical indication); or iterative reconstruction. Contrast material: OMNI 350; Contrast volume: 100 ml; Contrast route: INTRAVENOUS (IV); COMPARISON: PT PET skull to thigh INIT [id number] 12/12/2024 10:42 AM RADIATION DOSE METRICS: Total DLP (mGy-cm): 218.22 FINDINGS: Salivary glands: There is a 1.2 cm diameter oval, hyperdense nodule lying within the inferior aspect of the left parotid gland. A 1.1 cm similar appearing nodule is noted in the inferior aspect of the right parotid gland along with a similar 8 mm nodule noted more inferiorly and medially. Pharynx: Unremarkable. No significant tonsillar enlargement. Larynx: Unremarkable. Epiglottis is normal. Thyroid: Normal. No enlarged or calcified nodules. Trachea: Visualized trachea is unremarkable. Lungs: Unremarkable as visualized. Esophagus: The cervical esophagus is unremarkable. Lymph nodes: Unremarkable. No lymphadenopathy. Bones/joints: Unremarkable. No acute fracture. Soft tissues: Unremarkable. No significant soft tissue swelling. 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
[2025-01-06] MEDS: iohexol 350 mg/mL 500 mL Btl (per mL) IV (13:11)
== END 2025-01-06 12:12 | disposition home or self-care (01) ==
LOC: RAD 12:12
PROVIDERS: PCP Physician Assistant; Visit Provider Specialist
DX: R22.1 Localized swelling, mass and lump, neck (principal); K11.8 Other diseases of salivary glands
CPT/HCPCS: 70491

== ENCOUNTER → 2025-02-12 10:34 | Outpatient (BNVA) | payer MEDICARE, SELFPAY | PROVIDERS: PCP Physician Assistant; Visit Provider Internal Medicine | DX: R59.0 Localized enlarged lymph nodes (principal); R91.1 Solitary pulmonary nodule; G95.9 Disease of spinal cord, unspecified; Z87.891 Personal history of nicotine dependence | CPT/HCPCS: 99214; Q3014 ==

== ENCOUNTER 2025-02-16 12:21 | Oncology outpatient (recurring) (ONCR) | payer MEDICARE, SELFPAY | END 2025-02-25 23:59 | disposition home or self-care (01) | LOC: ONCMED 12:22 | PROVIDERS: PCP Physician Assistant; Visit Provider Internal Medicine Medical Oncology | DX: C34.90 Malignant neoplasm of unspecified part of unspecified bronchus or lung (principal); Z87.891 Personal history of nicotine dependence; R59.0 Localized enlarged lymph nodes; Z85.038 Personal history of other malignant neoplasm of large intestine | CPT/HCPCS: 99214 ==